=== PATIENT | male | born 1955 | race Caucasian/White ===

== ENCOUNTER 2020-05-27 06:42 | Inpatient (IN) | payer OTHER ==
[2020-05-27 07:27] LABS: #Basophils 0.1 thou/uL (0.0-0.2); #Eosinphils 0.2 thou/uL (0.0-0.7); #Lymphocytes 2.3 thou/uL (1.20-3.40); #Monocytes 1.1 thou/uL (0.11-0.59); #Neutrophils 8.2 thou/uL (1.40-6.50); %Basophils 0.8 % (0.0-1.0); %Eosinophils 1.5 % (0.0-10.0); %Lymphocytes 19.4 % (21.0-51.0); %Monocytes 9.5 % (0.0-10.0); %Neutrophils 68.9 % (42.0-75.0); Hemoglobin 14.1 g/dL (14.0-18.0); Mean Corpuscular HGB CONC 33.3 g/dL (32.0-36.0); Mean Corpuscular Hemoglobin 32.8 pg (27.0-31.0); Mean Corpuscular Volume 98.5 fL (78.0-98.0); Platelet Count 448 thou/uL (130-400); RBC Distribution Width 13.1 % (11.5-14.5); Red Blood Cell (RBC) Count 4.29 mill/uL (4.70-6.10)
[2020-05-27 07:36] LABS: INR-International Normal Ratio 0.9; PTT 29.2 sec (22.9-36.1); Prothrombin Time 12.7 sec (12.0-14.7)
--- NOTE | 2020-05-27 07:36 | RAD ---
Portable frontal chest radiograph: 05/27/2020 COMPARISON: None HISTORY: Chest pain FINDINGS: Lungs are clear. Heart and mediastinal contours appear within normal limits. There is degenerative change involving the acromioclavicular joints, left greater than right. IMPRESSION: No acute findings.
--- NOTE | 2020-05-27 07:47 | CT ---
Exam: Head CT without contrast HISTORY: Fall. Pain. Confusion. COMPARISON: none FINDINGS: Hemorrhage: No intraparenchymal hemorrhage or extra-axial hematoma. Brain parenchyma: Cortical jose-white matter differentiation is preserved. No mass effect or midline shift. Basilar cisterns are patent. Ventricular system: Ventricles and sulci are patent and symmetric. Calvarium: Calvarium is intact. Scalp: There is a midline and left-sided frontal scalp hematoma. Sinuses and mastoid air cells: Minimal right maxillary sinus mucosal disease. Partial opacification o f bilateral mastoid air cells. IMPRESSION: 1. No intracranial post traumatic sequelae 2. Left scalp hematoma.
--- NOTE | 2020-05-27 07:48 | CT ---
CT cervical spine noncontrast HISTORY: Fall. Neck injury. FINDINGS: Vertebral body heights are maintained. Disc space narrowing at each level. Alignment within normal limits. Cervicothoracic junction is intact. No acute fracture or dislocation. Prominent osteophytosis throughout the vertebral bodies and facets. Central canal stenoses most sever e at the C5-6 and C6-7 levels. Right foraminal stenoses most severe at the C3-4, C4-5, and C5-6 levels. Left foraminal stenoses most severe at the C5-6 and C6-7 levels. Partial opacification of the mastoid air cells. IMPRESSION : Prominent degenerative changes cervical spine. No acute osseous abnormalities are demonstrated.
[2020-05-27 07:50] LABS: Acetaminophen Less than 6.0 mcg/mL (10.0-30.0); Alcohol Less than 10 mg/dL (Less than 10); Salicylate Less than 8.0 mg/dL (15.0-30.0)
[2020-05-27 07:51] LABS: ALT (SGPT) 27 U/L (8-55); AST (SGOT) 32 U/L (5-34); Albumin 4.2 g/dL (3.4-4.8); Alkaline Phosphatase 74 U/L (40-110); Anion Gap 14 mmol/L (10-20); BUN (Urea Nitrogen) 14 mg/dL (8.4-25.7); Bilirubin, Total 0.7 mg/dL (0.2-1.2); CK (CPK) 1672 U/L (30-200); Calc. Creatinine Clearance 0 mL/min (70-130); Calcium 9.5 mg/dL (7.8-10.44); Carbon Dioxide 25 mmol/L (23-31); Chloride 107 mmol/L (98-107); Estimated GFR-MDRD Greater than 90; Globulin 3.1 g/dL (2.4-3.5); Glucose 120 mg/dL (80-115); Lipase 14 U/L (8-78); Potassium 4.2 mmol/L (3.5-5.1); Protein, Total 7.3 g/dL (5.8-8.1); Sodium 142 mmol/L (136-145)
[2020-05-27] MEDS ORDERED: Haloperidol Lactate 5 MG/ML VIAL ONE (08:41)
[2020-05-27 09:42] LABS: Bilirubin Negative (Negative); Blood, Urine Negative (Negative); Clarity Clear (Clear); Glucose, Urine (Dipstick) Normal (Negative); Ketone, Urine Negative (Negative); Leukocyte Negative Leu/uL (Negative); Nitrite Negative (Negative); Protein, Urine (Dipstick) Negative (Neg-Trace); Specific Gravity, Urine 1.015 (1.002-1.036); Urobilinogen Normal mg/dL (Less than 2); pH, Urine 5.5 (5.0-9.0)
[2020-05-27 10:13] LABS: Amphetamine Not Detected (NotDetected); Barbiturates Screen Not Detected (NotDetected); Benzodiazepine Screen Not Detected (NotDetected); Cocaine Metabolite Screen Not Detected (NotDetected); Medtox Control Line Valid? VALID (VALID); Medtox Reader # READER 4; Methadone Not Detected (NotDetected); Methamphetamine Not Detected (NotDetected); Opiate Screen Not Detected (NotDetected); Oxycodone Screen Not Detected (NotDetected); Phencyclidine (PCP) Not Detected (NotDetected); THC/Cannabinoid Screen Not Detected (NotDetected); Tricyclic Screen Not Detected (NotDetected)
--- NOTE | 2020-05-27 10:22 | PDOC.HHP ---
Hospitalist HPI - History of Present Illness Fall History of Present Illness: This is a 64-year-old male patient With a history of hypertension and diabetes mellitus he was brought in by EMS after he was noted to have fallen. He was found on the ground by EMS in his brother's house. Of note he is a poor historian. It is not clear how long it for him but estimated to about 24 hours. When EMS found him his blood pressure was 160/64, pulse 96 and oxygen 97 on room air. He was generally confused. He was found to have multiple abrasions to his lower extremities as well as a large hematoma on his left forehead. At my evaluation patient was still generally confused however could answer some questions. He was alert and oriented x3 however gave some errant answers intermittently. He notes having a falling at his brothers house but does not know how long he was on the ground. He has very vague memory of the last couple of days. He notes mild headache and weakness in his upper and lower limbs were mainly in his upper limbs. he denies any chest pain, palpitaion or shortness of breath. Prior to his fall he is unsure whether he stumbled mechanically, had dizziness or had any cardiac related events. He does not drink however smokes intermittently. also uses canabis once in a while. On arrival blood pressure was 145/96, respiration 18, temperature 98.4 saturation 99 on room air. His labs showed CK 1674, WBC was 12.0, platelet 448, BMP was essentially normal and glucose was 118. Acetaminophen and salicylates were within normal limits. CT scan of his head and neck revealed no acute or traumatic events. However he had prominent degenerative changes in the cervical spine. In the ED was given 2 L normal saline, ceftriaxone 2 g and Haldol. Neurosurgery was contacted for their input. Hospitalist team was consulted for admission. Hospitalist ROS - Review of Systems ROS unobtainable: due to mental status Constitutional: reports: fever. denies: chills, sweats Respiratory: denies: cough, shortness of breath, hemoptysis, SOB with excertion Gastrointestinal: denies: nausea, vomiting, abdominal pain, diarrhea Neurological: reports: weakness. denies: numbness Hospitalist History - Past Medical History Cardiac: reports: HTN Endocrine: reports: Diabetes Other Medical History: depression - Past Surgical History Other Surgical History: Right jojo surgery - Family History Other Family History: Alicia moya any for now - Social History Smoking Status: Current every day smoker Alcohol: reports: None Living Situation: With Family - Exam General - other findings: Apears confused, large bump on left forehead Eye: PERRL, anicteric sclera Neck: supple, no JVD Heart: RRR, no murmur, no gallops Respiratory: no wheezes, no rales, no ronchi, no tachypnea Gastrointestinal: soft, non-tender, non-distended, normal bowel sounds Neurological - other findings: Power 3/5 in upper limbs, 4/5 in upper limbs Psychiatric: A&O x 3 Psychiatric - other findings: Generally tangential. Hospitalist Results - Labs Result Diagrams: 05/27/20 07:20 05/27/20 07:21 Lab results: WBC 12.0 thou/uL (4.8-10.8) H 05/27/20 07:20 Hgb 14.1 g/dL (14.0-18.0) 05/27/20 07:20 Hct 42.3 % (42.0-52.0) 05/27/20 07:20 MCV 98.5 fL (78.0-98.0) H 05/27/20 07:20 Plt Count 448 thou/uL (130-400) H 05/27/20 07:20 Neutrophils % 68.9 % (42.0-75.0) 05/27/20 07:20 Sodium 142 mmol/L (136-145) 05/27/20 07:21 Potassium 4.2 mmol/L (3.5-5.1) 05/27/20 07:21 Chloride 107 mmol/L (98-107) 05/27/20 07:21 Carbon Dioxide 25 mmol/L (23-31) 05/27/20 07:21 BUN 14 mg/dL (8.4-25.7) 05/27/20 07:21 Creatinine 0.79 mg/dL (0.7-1.3) 05/27/20 07:21 Glucose 120 mg/dL (80-115) H 05/27/20 07:21 Lactic Acid 1.5 mmol/L (0.5-2.2) 05/27/20 07:20 Calcium 9.5 mg/dL (7.8-10.44) 05/27/20 07:21 Total Bilirubin 0.7 mg/dL (0.2-1.2) 05/27/20 07:21 AST 32 U/L (5-34) 05/27/20 07:21 ALT 27 U/L (8-55) 05/27/20 07:21 Alkaline Phosphatase 74 U/L (40-110) 05/27/20 07:21 Creatine Kinase 1672 U/L (30-200) H 05/27/20 07:21 Serum Total Protein 7.3 g/dL (5.8-8.1) 05/27/20 07:21 Albumin 4.2 g/dL (3.4-4.8) 05/27/20 07:21 Lipase 14 U/L (8-78) 05/27/20 07:21 Urine Ketones Negative mg/dL (Negative) 05/27/20 09:20 Urine Blood Negative (Negative) 05/27/20 09:20 Urine Nitrite Negative (Negative) 05/27/20 09:20 Ur Leukocyte Esterase Negative Zia/uL (Negative) 05/27/20 09:20 Hospitalist H&P A/P - Plan Plan: This is a 64-year-old male patient, poor historian brought in by EMS after he was found on the ground after a fall with unclear duration on the ground. He is generally confused however answers some questions coherently. He will be admitted for further work-up. Neurosurgery has been contacted on account of bilateral intermittent upper limb paresis Fall Unclear etiologymechanical, cardiac, syncope, stroke Admit for telemetry monitoring Brain MRI Fall precautions Neurochecks Orthostatic vital signs once stable to perform. PT OT Bilateral upper limb weakness unclear etiology Possible myelopathy from chronic cervical degeneration MRI brain ordered Neurosurgery consulted Possible sepsis Is confused if leukocytosis however no clear source of sepsis. Chest is clear, urine has no indication of infection Also less likely meningitis given no other symptoms of neck stiffness fevers Received ceftriaxone Will hold antibiotics for now and monitororder blood culture and restart if indicated. Scalp hematoma Secondary to fall and trauma No intracerebral lesion on CT scan We will monitor for spontaneous resolution Surgical evaluation if persistent Acute encephalopathy Unclear etiology No acute events on head CT This could be related to traumatic brain injury Urine drug screen negative for any intoxicants. Blood alcohol less than 10 We will check B12, TSH, ammonia, thiamine Monitor on the floor Hypertension Blood pressure stable for now Will monitor Diabetes History of diabetes We will check A1c Correctional [place] [address] We will trend Received 2 L IV fluids in ED We will continue IV fluids History of depression We will start fluoxetine VTE prophylaxisLovenox Codefull code Dietdiabetic diet Disposition: Neuro telemetry I tried unsuccessfully to talk to family Addendum: MRI Reviewed-showed small restricted diffusion in temporal lobe consistent with a stroke Neuro consult in am.
[2020-05-27] MEDS ORDERED: Dextrose 50% Abboject 50 ML SYRINGE SLOW IVP PRN (11:04)
[2020-05-27] MEDS ORDERED: Dextrose 5% in Water 1,000 ML IV PRN (11:04)
[2020-05-27] MEDS ORDERED: HumaLOG 300 UNITS/3 ML VIAL SC PRN (11:04)
[2020-05-27] MEDS ORDERED: hydrALAZINE 20 MG/ML VIAL SLOW IVP PRN (11:08)
[2020-05-27 11:10] LABS: Troponin I Less than 0.010 ng/mL (< 0.028)
[2020-05-27] MEDS: Sodium Chloride 0.9% 1,000 ML IV SCH (14:00)
[2020-05-27] MEDS ORDERED: Lorazepam 0.5 MG TAB PO PRN (14:08)
[2020-05-27] MEDS ORDERED: Lorazepam 2 MG/ML VIAL SLOW IVP PRN (14:11)
[2020-05-27] MEDS: Lorazepam 2 MG/ML VIAL SLOW IVP PRN ×2 (14:39→22:27)
--- NOTE | 2020-05-27 15:18 | MRI ---
Exam: Brain MRI without contrast HISTORY: Fall. Pain. Confusion. COMPARISON: None FINDINGS: Calvarial marrow signal intensity: Appropriate T1 signal Gradient echo sequence: No hemorrhage Brain parenchyma: No mass, mass effect or midline shift. Brain volume, age-appropriate. Cortical jose-white matter differentiation: Preserved Restricted diffusion: Possible small focus of restricted diffusion involving the left temporal lobe, subependymal location along the temporal horn of the left lateral ventricle. White matter signal intensities:Minimal scattered T2 and FLAIR white matter hyperintensities, nonspec ific. Sinuses: Partial opacification of bilateral mastoid air cells. Mild mucosal thickening of the ethmoid air cells. Additional findings: Left frontal scalp hematoma. IMPRESSION: Small focus of restricted diffusion involving the left temporal lobe. Restricted diffusion appears to be along the subependymal region of the temporal horn of the left lateral ventricle.
[2020-05-27 16:15] LABS: Hemoglobin A1c 5.8 % (4.0-6.0)
[2020-05-27 16:34] LABS: Troponin I Less than 0.010 ng/mL (< 0.028)
[2020-05-27 16:54] LABS: Thyroid Stimulating Hormone 1.5319 uIU/mL (0.35-4.94)
[2020-05-27] MEDS: Enoxaparin Sodium 40 MG/0.4 ML SYRINGE SC SCH (20:32)
[2020-05-27] MEDS ORDERED: Atorvastatin Calcium 40 MG TAB PO SCH (23:00)
[2020-05-27] MEDS ORDERED: Aspirin 81 mg Enteric Coated Tablet PO SCH (23:00)
[2020-05-28] MEDS ORDERED: Lorazepam 2 MG/ML VIAL SLOW IVP SCH (01:45)
[2020-05-28] MEDS: Sodium Chloride 0.9% 1,000 ML IV SCH ×3 (01:50→21:20)
[2020-05-28] MEDS: Acetaminophen 325 MG TAB PO PRN (03:57)
[2020-05-28 05:22] LABS: #Basophils 0.1 thou/uL (0.0-0.2); #Eosinphils 0.3 thou/uL (0.0-0.7); #Lymphocytes 3.2 thou/uL (1.20-3.40); #Monocytes 0.9 thou/uL (0.11-0.59); #Neutrophils 6.2 thou/uL (1.40-6.50); %Basophils 1.1 % (0.0-1.0); %Eosinophils 2.9 % (0.0-10.0); %Monocytes 8.3 % (0.0-10.0); %Neutrophils 57.8 % (42.0-75.0); Hemoglobin 12.6 g/dL (14.0-18.0); Mean Corpuscular HGB CONC 34.5 g/dL (32.0-36.0); Mean Corpuscular Hemoglobin 33.2 pg (27.0-31.0); Mean Corpuscular Volume 96.2 fL (78.0-98.0); Mean Platelet Volume 6.2 fL (7.4-10.4); Platelet Count 434 thou/uL (130-400); Red Blood Cell (RBC) Count 3.81 mill/uL (4.70-6.10); White Blood Cell (WBC) Count 10.6 thou/uL (4.8-10.8)
[2020-05-28 05:43] LABS: Anion Gap 11 mmol/L (10-20); BUN (Urea Nitrogen) 14 mg/dL (8.4-25.7); CK (CPK) 955 U/L (30-200); Calc. Creatinine Clearance 141 mL/min (70-130); Calcium 8.5 mg/dL (7.8-10.44); Carbon Dioxide 23 mmol/L (23-31); Cardiac Risk 3.4 (Less than 4.5); Chloride 109 mmol/L (98-107); Cholesterol 117 mg/dl (< 200 Desired); Estimated GFR-MDRD Greater than 90; Glucose 116 mg/dL (80-115); HDL Cholesterol 34 mg/dL (>60 Neg Risk); LDL Cholesterol, Calculated 57 mg/dL; Potassium 3.7 mmol/L (3.5-5.1); Sodium 139 mmol/L (136-145); Triglycerides 128 mg/dL (Less than 150)
[2020-05-28] MEDS: Labetalol HCl 100 MG/20 ML VIAL SLOW IVP PRN (09:21)
[2020-05-28] MEDS: Aspirin 81 mg Enteric Coated Tablet PO SCH (09:23)
[2020-05-28] MEDS: FLUoxetine HCl 20 MG CAP PO SCH (09:23)
[2020-05-28] MEDS ORDERED: Lorazepam 1 MG TAB PO PRN (09:25)
[2020-05-28 12:49] LABS: SARS-CoV-2 MS2 Positive; SARS-CoV-2 N Gene Negative; SARS-CoV-2 S Gene Negative; SARS-CoV-2 by NAA Not Detected (NotDetected); SARS-CoV-2 orf1ab Negative
[2020-05-28] MEDS ORDERED: Iopamidol-370 76% 500 ML 1 ML ONE (14:45)
--- NOTE | 2020-05-28 17:00 | ULT ---
Carotid duplex sonogram HISTORY: CVA. Vascular disease. FINDINGS: Exam very limited due to patient motion and inability to cooperate. Right: Color and spectral Doppler flow within the visualized portions of the internal carotid artery shows peak systolic velocity of 90 cm/s. Vertebral artery not visualized. Left: Color and spectral Doppler flow in the common carotid artery with peak systolic velocity 146 cm /s. Waveform suggests increased resistance.. Internal carotid artery and vertebral artery not visualized. IMPRESSION : Very limited exam. While the left internal carotid artery is not visualized, findings of the left com mon carotid artery would be supportive of an internal carotid artery stenosis. Conventional or CT arteriography, if possible, could better delineate.
--- NOTE | 2020-05-28 17:47 | PDOC.HOSPP ---
- Subjective Encounter Date: 05/28/20 Encounter Time: 09:00 Subjective: F/u: stroke The patient was confused this morning. He states that he fell but does not remember how it happened. He states he has a mild headache. No numbness in his arms or legs. He appears to talk in sentences that don't make sense at times Patient was unable to complete carotid doppler or MRI cervical spine because he was talking too much. He will be given higher dose of ativan for this - Objective Vital Signs & Weight: Vital Signs (12 hours) Temp Pulse Pulse Pulse Resp BP BP 05/28/20 15:36 98.0 F 94 18 05/28/20 13:14 88 88 141/71 H 05/28/20 12:37 88 05/28/20 11:55 98.2 F 84 16 05/28/20 11:11 88 82 189/95 H 05/28/20 10:00 85 05/28/20 09:21 99 190/95 H 05/28/20 08:17 05/28/20 08:00 98.2 F 99 18 BP BP Pulse Ox 05/28/20 15:36 146/98 H 98 05/28/20 13:14 141/91 H 05/28/20 12:37 141/91 H 05/28/20 11:55 189/95 H 97 05/28/20 11:11 173/83 H 05/28/20 10:00 162/100 H 05/28/20 09:21 05/28/20 08:17 99 05/28/20 08:00 190/95 H 100 Weight Admit Weight 203 lb 6.4 oz Weight 203 lb 6.4 oz I&O: 05/27/20 05/28/20 05/29/20 06:59 06:59 06:59 Intake Total 2740 Output Total 3145 Balance -405 Result Diagrams: 05/28/20 04:46 05/28/20 04:46 Additional Labs: Accuchecks 05/27/20 20:42 POC Glucose 104 H Hospitalist ROS - Review of Systems Constitutional: denies: fever, chills - Medication Medications: Active Medications Generic Name Dose Route Start Last Admin Trade Name Freq PRN Reason Stop Dose Admin Acetaminophen 650 mg 05/27/20 11:04 05/28/20 03:57 Acetaminophen 325 Mg Tab PO 650 mg Q4H PRN Administration Headache/Fever/Mild Pain (1-3) Aspirin 81 mg 05/28/20 09:00 05/28/20 09:23 Aspirin 81 Mg Enteric Coated Tablet PO 81 mg DAILY VENKATESH Administration Enoxaparin Sodium 40 mg 05/27/20 21:00 05/27/20 20:32 Enoxaparin Sodium 40 Mg/0.4 Ml Syringe SC 40 mg HS VENKATESH Administration Fluoxetine HCl 20 mg 05/28/20 09:00 05/28/20 09:23 Fluoxetine Hcl 20 Mg Cap PO 20 mg DAILY VENKATESH Administration Sodium Chloride 1,000 mls @ 100 mls/hr 05/27/20 11:30 05/28/20 12:33 Normal Saline 0.9% IV 1,000 mls .Q10H VENKATESH Administration Labetalol HCl 20 mg 05/28/20 01:37 05/28/20 09:21 Labetalol Hcl 100 Mg/20 Ml Vial SLOW IVP 20 mg Q4H PRN Administration SBP > 180 and HR >/= 70 Sodium Chloride 10 ml 05/27/20 21:00 05/28/20 09:22 Flush - Normal Saline 10 Ml Syringe IVF 10 ml Q12HR VENKATESH Administration - Exam General Appearance: NAD, awake alert Eye: PERRL, anicteric sclera ENT: normocephalic atraumatic, no oropharyngeal lesions Neck: no JVD Heart: RRR, no murmur, no gallops, no rubs Respiratory: CTAB, no wheezes, no rales, no ronchi, normal chest expansion, no tachypnea, normal percussion Gastrointestinal: soft, non-tender, non-distended, normal bowel sounds Extremities: no cyanosis, no clubbing, no edema Skin: normal turgor, no lesions, no rashes Neurological: cranial nerve grossly intact, normal sensation to touch, no weakness, speech deficit (he has good speech but sentences don't make sense) Neurological - other findings: right arm flaccid. 5/5 strength lower extremities, 5/5 LUe but poor effort Musculoskeletal: normal tone, normal strength, no muscle wasting Psychiatric: oriented to place Hosp A/P - Plan Carotid doppler: Limited exam, but possible left internal carotid artery stenosis CT brain: left scalp hematoma CT cervical spine: prominent degenerative changes Chest X ray: no acute findings MRI brain: small focus of restricted diffusion involving left temporal lobe This is a 64 year old male who presented to the ER after a fall , found to have a stroke Acute encephalopaty secondary to left temporal lobe stroke - patient has right arm weakness. CT brain negative, MRI shows left temporal lobe stroke - carotid dopplers show possible left ICA stenosis, but difficult to visualize. Will obtain CTA head and neck - continue aspirin and statin - ECHO done and pending -PT/OT/speech consult, patient will likely need rehab S/p fall - CT cervical spine shows degenerative changes - PT evaluation Anemia - Hb 12.6 today, will trend and recheck tomorrow Leukocytosis- resolved DVT prophylaxis: lovenox Code status: full code
[2020-05-28] MEDS: Lorazepam 1 MG TAB PO PRN (18:12)
--- NOTE | 2020-05-28 20:38 | CT ---
CT ANGIO OF NECK PERFORMED WITH INTRAVENOUS CONTRAST ENHANCEMENT WITH 3D [address]STRUCTIONS AND CT OF BR AIN PERFORMED WITHOUT CONTRAST AND CT ANGIO OF BRAIN PERFORMED WITH CONTRAST ENHANCEMENT WITH 3D DHAVAL NSTRUCTIONS: 05/28/20 HISTORY: Altered mental status. Right arm weakness. Focus of restricted diffusion seen in left temporal lobe o n MRI exam. The noncontrast CT of the head shows a large left scalp hematoma. No evidence of any intracranial hem orrhage. The lung apices are clear of any focal infiltrative process. Thyroid gland is normal in appearance. V ocal cord region is unremarkable. Parapharyngeal spaces are clear. The vertebral arteries are codominant. There appears to be a separate origin of the left common carot id artery from the aortic arch. On the right side, the right common carotid, internal and external carotid arteries are patent witho ut significant narrowing. The origin of the left internal carotid artery is somewhat tortuous. Distal ly, there is some motion artifact which makes assessment more difficult. On the left side, the left common internal and external carotid arteries show no significant stenosis . CT ANGIO OF HEAD PERFORMED WITH INTRAVENOUS CONTRAST ENHANCEMENT WITH 3D RECONSTRUCTIONS: Vertebral arteries are codominant making equal contribution to the basilar artery. Posterior cerebral arteries appear unremarkable. Anterior and middle cerebral arteries and their branches appear symmetric. IMPRESSION: 1. No evidence of hemodynamically significant stenosis at either internal carotid artery by NASC ET criteria. 2. No intracranial findings. POS: EVELYNE
[2020-05-28] MEDS: Atorvastatin Calcium 40 MG TAB PO SCH (21:58)
[2020-05-28] MEDS: Enoxaparin Sodium 40 MG/0.4 ML SYRINGE SC SCH (23:38)
[2020-05-29] MEDS: Sodium Chloride 0.9% 1,000 ML IV SCH ×2 (03:16→15:23)
[2020-05-29] MEDS: Labetalol HCl 100 MG/20 ML VIAL SLOW IVP PRN (03:39)
[2020-05-29] MEDS: Acetaminophen 325 MG TAB PO PRN ×3 (03:50→21:13)
[2020-05-29 05:44] LABS: Thyroid Stimulating Hormone 1.5377 uIU/mL (0.35-4.94)
--- NOTE | 2020-05-29 08:56 | CON ---
NEUROLOGY CONSULTATION DATE OF CONSULTATION: 05/28/2020 REASON FOR CONSULTATION: Stroke. HISTORY OF PRESENT ILLNESS: Mr. Trinh is a 64-year-old male with medical history significant for hypertension and diabetes, brought to the hospital by the EMS because he was found down in his brother's house. When the EMS was called, his blood pressure was 160/64, pulse was 96, and he was extremely confused, has multiple abrasions in his lower extremities as well as a large hematoma on his head. Since then, the patient has been confused and his conversation does not make sense. History is limited because of the patient's mental status and is obtained from review of the medical records and by talking with brother at the bedside. Per brother, he denies any focal weakness, nausea, vomiting, headache, chest pain, abdominal pain. He smokes intermittently and he also uses cannabis, but he does not drink. REVIEW OF SYSTEMS: Unobtainable due to the patient's mental status. PAST MEDICAL HISTORY: Hypertension, diabetes. PAST SURGICAL HISTORY: Right hip surgery. FAMILY HISTORY: No significant family history per brother. SOCIAL HISTORY: He is a current everyday smoker. He lives with family. Per brother, he is normal and he has never been confused ALLERGIES: Cilantro Vital Signs & Weight: Vital Signs (12 hours) Temp Pulse Pulse Pulse Resp BP BP 05/28/20 15:36 98.0 F 94 18 05/28/20 13:14 88 88 141/71 H 05/28/20 12:37 88 05/28/20 11:55 98.2 F 84 16 05/28/20 11:11 88 82 189/95 H 05/28/20 10:00 85 05/28/20 09:21 99 190/95 H 05/28/20 08:17 05/28/20 08:00 98.2 F 99 18 BP BP Pulse Ox 05/28/20 15:36 146/98 H 98 05/28/20 13:14 141/91 H 05/28/20 12:37 141/91 H 05/28/20 11:55 189/95 H 97 05/28/20 11:11 173/83 H 05/28/20 10:00 162/100 H 05/28/20 09:21 05/28/20 08:17 99 05/28/20 08:00 190/95 H 100 Weight Admit Weight 203 lb 6.4 oz Weight 203 lb 6.4 oz I&O: 05/27/20 05/28/20 05/29/20 06:59 06:59 06:59 Intake Total 2740 Output Total 3145 Balance -405 Additional Labs: Accuchecks 05/27/20 20:42 POC Glucose 104 H Active Medications Generic Name Dose Route Start Last Admin Trade Name Freq PRN Reason Stop Dose Admin Acetaminophen 650 mg 05/27/20 11:04 05/28/20 03:57 Acetaminophen 325 Mg Tab PO 650 mg Q4H PRN Administration Headache/Fever/Mild Pain (1-3) Aspirin 81 mg 05/28/20 09:00 05/28/20 09:23 Aspirin 81 Mg Enteric Coated Tablet PO 81 mg DAILY VENKATESH Administration Enoxaparin Sodium 40 mg 05/27/20 21:00 05/27/20 20:32 Enoxaparin Sodium 40 Mg/0.4 Ml Syringe SC 40 mg HS VENKATESH Administration Fluoxetine HCl 20 mg 05/28/20 09:00 05/28/20 09:23 Fluoxetine Hcl 20 Mg Cap PO 20 mg DAILY VENKATESH Administration Sodium Chloride 1,000 mls @ 100 mls/hr 05/27/20 11:30 05/28/20 12:33 Normal Saline 0.9% IV 1,000 mls .Q10H VENKATESH Administration Labetalol HCl 20 mg 05/28/20 01:37 05/28/20 09:21 Labetalol Hcl 100 Mg/20 Ml Vial SLOW IVP 20 mg Q4H PRN Administration SBP > 180 and HR >/= 70 Sodium Chloride 10 ml 05/27/20 21:00 05/28/20 09:22 Flush - Normal Saline 10 Ml Syringe IVF 10 ml Q12HR VENKATESH Administration PHYSICAL EXAMINATION: General Appearance: NAD, awake alert Eye: PERRL, anicteric sclera ENT: normocephalic atraumatic, no oropharyngeal lesions Neck: no JVD Heart: RRR, no murmur, no gallops, no rubs Respiratory: CTAB, no wheezes, no rales, no ronchi, normal chest expansion, no tachypnea, normal percussion Gastrointestinal: soft, non-tender, non-distended, normal bowel sounds Extremities: no cyanosis, no clubbing, no edema Skin: normal turgor, no lesions, no rashes Neurological: Mental status; the patient is alert and oriented to person and place, but not to time. He is extremely tangential. Motor; muscle tone and bulk are normal. He is moving all 4 extremities equally and symmetrically. Sensory; withdraws to nailbed pressure bilaterally. Cerebellar; did not cooperate with the exam. Gait deferred due to the patient's safety reasons. DIAGNOSTIC STUDIES: Data reviewed. I reviewed the labs, which were significant for hyperglycemia with a glucose of 448. EEG reviewed and was negative for seizure activity. Lab results: WBC 12.0 thou/uL (4.8-10.8) H 05/27/20 07:20 Hgb 14.1 g/dL (14.0-18.0) 05/27/20 07:20 Hct 42.3 % (42.0-52.0) 05/27/20 07:20 MCV 98.5 fL (78.0-98.0) H 05/27/20 07:20 Plt Count 448 thou/uL (130-400) H 05/27/20 07:20 Neutrophils % 68.9 % (42.0-75.0) 05/27/20 07:20 Sodium 142 mmol/L (136-145) 05/27/20 07:21 Potassium 4.2 mmol/L (3.5-5.1) 05/27/20 07:21 Chloride 107 mmol/L (98-107) 05/27/20 07:21 Carbon Dioxide 25 mmol/L (23-31) 05/27/20 07:21 BUN 14 mg/dL (8.4-25.7) 05/27/20 07:21 Creatinine 0.79 mg/dL (0.7-1.3) 05/27/20 07:21 Glucose 120 mg/dL (80-115) H 05/27/20 07:21 Lactic Acid 1.5 mmol/L (0.5-2.2) 05/27/20 07:20 Calcium 9.5 mg/dL (7.8-10.44) 05/27/20 07:21 Total Bilirubin 0.7 mg/dL (0.2-1.2) 05/27/20 07:21 AST 32 U/L (5-34) 05/27/20 07:21 ALT 27 U/L (8-55) 05/27/20 07:21 Alkaline Phosphatase 74 U/L (40-110) 05/27/20 07:21 Creatine Kinase 1672 U/L (30-200) H 05/27/20 07:21 Serum Total Protein 7.3 g/dL (5.8-8.1) 05/27/20 07:21 Albumin 4.2 g/dL (3.4-4.8) 05/27/20 07:21 Lipase 14 U/L (8-78) 05/27/20 07:21 Urine Ketones Negative mg/dL (Negative) 05/27/20 09:20 Urine Blood Negative (Negative) 05/27/20 09:20 Urine Nitrite Negative (Negative) 05/27/20 09:20 Ur Leukocyte Esterase Negative Zia/uL (Negative) 05/27/20 09:20 ASSESSMENT AND PLAN: 1. Acute encephalopaty secondary to left temporal lobe stroke 2. S/p fall Mr. King Dee is a 64-year-old male, who was consulted for altered mental status. Medical history is significant for hypertension and diabetes. MRI of the brain reviewed, which showed small restricted diffusion in temporal lobe consistent with stroke. Start aspirin and high- intensity statin for secondary stroke prevention. Check hemoglobin A1c, fasting lipid panel, and TSH. Start telemetry. 2D echo and carotid Dopplers. Neuro checks every 4 hours. EEG negative but consider starting Keppra 500 mg bid for seizure prophylaxis since increased precious of seizures due to temporal lobe infarct. Continue home medications. PT/OT/speech. We will continue to follow. Thank you for the consult. 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 Job ID: [id number] [facility]
[2020-05-29] MEDS: Folic Acid 1 MG TAB PO SCH (09:39)
[2020-05-29] MEDS: Cyanocobalamin (Vitamin B-12) 1,000 MCG TAB PO SCH (09:39)
[2020-05-29] MEDS: FLUoxetine HCl 20 MG CAP PO SCH (09:40)
[2020-05-29] MEDS: Aspirin 81 mg Enteric Coated Tablet PO SCH (09:40)
--- NOTE | 2020-05-29 12:36 | PDOC.NEUPN ---
- Subjective Encounter Date: 05/29/20 Subjective: Patient mental status improved and is able to tell his name and place. However there is acute change with new onset weakness in both upper and lower extremities. MRI cervical spine spine ordered to further evaluate the new onset weakness - Objective Vital Signs & Weight: Vital Signs (12 hours) Temp Pulse Resp BP BP Pulse Ox 05/29/20 11:57 98.1 F 85 16 161/84 H 95 05/29/20 08:00 99.2 F 85 14 160/83 H 95 05/29/20 06:31 98.9 F 05/29/20 04:09 83 156/83 H 05/29/20 03:39 84 189/93 H 05/29/20 03:22 99.7 F H 84 17 189/93 H 96 Weight Admit Weight 203 lb 6.4 oz Weight 203 lb 6.4 oz I&O: 05/28/20 05/29/20 05/30/20 06:59 06:59 06:59 Intake Total 2740 1440 900 Output Total [address] [facility] -405 -35 -150 Result Diagrams: 05/28/20 04:46 05/28/20 04:46 Radiology Reviewed by me: Yes EKG Reviewed by me: Yes ROS - Review of Systems Constitutional: denies: fever, chills, sweats, weakness, malaise, other Eyes: denies: pain, vision change, conjunctivae inflammation, eyelid inflammation, redness, other Respiratory: denies: cough, dry, shortness of breath, hemoptysis, SOB with excertion, pleuritic pain, sputum, wheezing, other Gastrointestinal: denies: nausea, vomiting, abdominal pain, diarrhea, constipation, melena, hematochezia, other Genitourinary: denies: dysuria, frequency, incontinence, hematuria, retention, other Musculoskeletal: denies: neck pain, shoulder pain, arm pain, back pain, hand pain, leg pain, foot pain, other Skin: denies: rash, lesions, josé miguel, bruising, other Neurological: reports: weakness, numbness, incoordination - Medication Medications: Active Medications Generic Name Dose Route Start Last Admin Trade Name Freq PRN Reason Stop Dose Admin Acetaminophen 650 mg 05/27/20 11:04 05/29/20 09:44 Acetaminophen 325 Mg Tab PO 650 mg Q4H PRN Administration Headache/Fever/Mild Pain (1-3) Aspirin 81 mg 05/28/20 09:00 05/29/20 09:40 Aspirin 81 Mg Enteric Coated Tablet PO 81 mg DAILY VENKATESH Administration Atorvastatin Calcium 40 mg 05/28/20 21:00 05/28/20 21:58 Atorvastatin Calcium 40 Mg Tab PO Not Given HS VENKATESH Cyanocobalamin 1,000 mcg 05/29/20 09:00 05/29/20 09:39 Cyanocobalamin (Vitamin B-12) 1,000 Mcg Tab PO 1,000 mcg DAILY VENKATESH Administration Enoxaparin Sodium 40 mg 05/27/20 21:00 05/28/20 23:38 Enoxaparin Sodium 40 Mg/0.4 Ml Syringe SC 40 mg HS VENKATESH Administration Fluoxetine HCl 20 mg 05/28/20 09:00 05/29/20 09:40 Fluoxetine Hcl 20 Mg Cap PO 20 mg DAILY VENKATESH Administration Folic Acid 1 mg 05/29/20 09:00 05/29/20 09:39 Folic Acid 1 Mg Tab PO 1 mg DAILY VENKATESH Administration Sodium Chloride 1,000 mls @ 100 mls/hr 05/27/20 11:30 05/29/20 03:16 Normal Saline 0.9% IV 1,000 mls .Q10H VENKATESH Administration Labetalol HCl 20 mg 05/28/20 01:37 05/29/20 03:39 Labetalol Hcl 100 Mg/20 Ml Vial SLOW IVP 20 mg Q4H PRN Administration SBP > 180 and HR >/= 70 Lorazepam 2 mg 05/28/20 16:27 05/28/20 18:12 Lorazepam 1 Mg Tab PO 2 mg Q4H PRN Administration Anxiety/Agitation Sodium Chloride 10 ml 05/27/20 21:00 05/29/20 09:42 Flush - Normal Saline 10 Ml Syringe IVF Not Given Q12HR VENKATESH - Exam General Appearance: awake alert Eye: PERRL ENT: normocephalic atraumatic Neck: supple Respiratory: CTAB Cardiovascular: RRR Gastrointestinal: soft Extremities: no cyanosis Skin: normal turgor Neurological - other findings: New onset weakness of both upper and lower extremities. 2 / 5 bilaterally Musculoskeletal: normal tone, no muscle wasting PSYCH: normal affect, normal behavior, oriented to person, oriented to place Results - Labs Result Diagrams: 05/28/20 04:46 05/28/20 04:46 Lab results: WBC 10.6 thou/uL (4.8-10.8) 05/28/20 04:46 Hgb 12.6 g/dL (14.0-18.0) L 05/28/20 04:46 Hct 36.6 % (42.0-52.0) L 05/28/20 04:46 MCV 96.2 fL (78.0-98.0) 05/28/20 04:46 Plt Count 434 thou/uL (130-400) H 05/28/20 04:46 Neutrophils % 57.8 % (42.0-75.0) 05/28/20 04:46 Sodium 139 mmol/L (136-145) 05/28/20 04:46 Potassium 3.7 mmol/L (3.5-5.1) 05/28/20 04:46 Chloride 109 mmol/L (98-107) H 05/28/20 04:46 Carbon Dioxide 23 mmol/L (23-31) 05/28/20 04:46 BUN 14 mg/dL (8.4-25.7) 05/28/20 04:46 Creatinine 0.70 mg/dL (0.7-1.3) 05/28/20 04:46 Glucose 116 mg/dL (80-115) H 05/28/20 04:46 Lactic Acid 1.5 mmol/L (0.5-2.2) 05/27/20 07:20 Calcium 8.5 mg/dL (7.8-10.44) 05/28/20 04:46 Total Bilirubin 0.7 mg/dL (0.2-1.2) 05/27/20 07:21 AST 32 U/L (5-34) 05/27/20 07:21 ALT 27 U/L (8-55) 05/27/20 07:21 Alkaline Phosphatase 74 U/L (40-110) 05/27/20 07:21 Ammonia 36 umol/L (18-72) 05/27/20 15:59 Creatine Kinase 955 U/L (30-200) H 05/28/20 04:46 Troponin I Less than 0.010 ng/mL (< 0.028) 05/27/20 15:58 Serum Total Protein 7.3 g/dL (5.8-8.1) 05/27/20 07:21 Albumin 4.2 g/dL (3.4-4.8) 05/27/20 07:21 Lipase 14 U/L (8-78) 05/27/20 07:21 Urine Ketones Negative mg/dL (Negative) 05/27/20 09:20 Urine Blood Negative (Negative) 05/27/20 09:20 Urine Nitrite Negative (Negative) 05/27/20 09:20 Ur Leukocyte Esterase Negative Zia/uL (Negative) 05/27/20 09:20 - Radiology Interpretation MRI - head Status: image reviewed by me, report reviewed by me Additional Comment: MRI brain reviewed and was consistent with a infarction in the left temporal lobe PN A/P (1) Acute CVA (cerebrovascular accident) Code(s): I63.9 - CEREBRAL INFARCTION, UNSPECIFIED Status: Acute (2) Bilateral arm weakness Code(s): R29.898 - OTH SYMPTOMS AND SIGNS INVOLVING THE MUSCULOSKELETAL SYSTEM Status: Acute (3) Bilateral leg weakness Code(s): R29.898 - OT SYMPTOMS AND SIGNS INVOLVING THE MUSCULOSKELETAL SYSTEM Status: Acute (4) Diabetes Code(s): E11.9 - TYPE 2 DIABETES MELLITUS WITHOUT COMPLICATIONS Status: Acute (5) Hypertension Code(s): I10 - ESSENTIAL (PRIMARY) HYPERTENSION Status: Acute - Plan Daily Plan: PT/OT, speech therapy, DVT proph w/SCDs 4-year-old male who presented with acute onset confusion status post fall. No focal deficits were evident on yesterday's exam. MRI brain consistent with acute infarction in the left temporal region. However, the patient developed weakness of both upper and lower extremity in the last 24 hours. Per nursing staff, waxing and waning mental status. MRI of the cervical spine ordered to evaluate the cervical spine. Cervical spine MRI results reviewed. Abnormal results noted. Consider neurosurgery input regarding new findings on imaging and new onset bilateral weakness of the upper and lower extremities. Initial cervical spine CT showed prominent degenerative disease but no acute findings. Bed rest MRI of the brain reviewed and was positive for infarction in the left temporal region. EEG reviewed and was negative for seizure activity. Consider starting Keppra 500 mg twice daily since patient is increased risk of seizures because of infarction in the left temporal region and waxing and waning mental status per nursing report. Carotid Dopplers completed. Limited study with concern of carotid stenosis. Follow-up CT angiogram of head and neck negative for hemodynamically significant stenosis. Neurochecks every 2 hours. Continue home medications. Permissive control of blood pressure at this time. Strict control of blood glucose. DVT prophylaxis. NPO till cleared by speech. Continue medical management per primary team. Plan discussed during MDR rounds and new findings discussed with the nursing staff.
--- NOTE | 2020-05-29 12:55 | MRI ---
MRI cervical spine noncontrast: 05/29/2020 HISTORY: 64-year-old male status post neck injury from fall COMPARISON: None FINDINGS: All images are degraded by patient motion, especially all of the axial images. This makes it difficult to evaluate for intramedullary signal abnormality. No obvious, gross severe i ntramedullary signal abnormality is visualized, but it is difficult to completely rule out at least mild cord edema. There is no syrinx. There is midline fluid in the retropharyngeal space (T2 and STIR hyperintense, and T1 hypointense) fr om C1 through at least C7-T1, and extending into the upper thoracic levels down to at least T3-4, the lowest level imaged on sagittal sequences. On the CT, the density is 65 Hounsfield units, and the refore this is probably blood. On the T2 WI and STIR sequence, vertically oriented linear thin hypodense structures are visualized within this retropharyngeal space fluid collection, which could r epresent torn portions of the anterior longitudinal ligament. Vertebral body heights are maintained. There is high-grade degenerative disc disease, with high-grade disc space narrowing, endplate irregularity, and broad-based and focal disc-osteophyte complexes that protrude into the anterior aspect of the spinal canal, at all levels from C3-4 through C6-C7, ex acerbating a developmentally small caliber spinal canal (due to short pedicles), resulting in severe central spinal canal stenosis throughout those levels, indenting the spinal cord. This is true to a lesser degree at C2-3. CSF signal is effaced throughout those levels. There are also large uncinate process osteophytes throughout all those levels, causing severe neural foraminal stenosis. M ultilevel predominantly low grade facet DJD throughout all levels. Bone marrow edema at endplates of C6-7 probably representing Modic type I changes. Mild soft tissue edema in the bilateral posterior paraspinal musculature throughout all levels of cer vical spine, and in the space between the C4 and C5 spinous processes. IMPRESSION: 1.) Fluid, consistent with hematoma, throughout the retropharyngeal space of the entire cervical spin e and upper thoracic spine levels. In the setting of trauma, this is suspicious for tear of the anterior longitudinal ligament. 2) developmentally small caliber spinal canal exacerbated by moderate cervical spondylosis with multi level high-grade degenerative disc disease, severe central spinal canal stenosis, severe bilateral neural foraminal stenosis, and chronic cord impingement and immobilization, at all levels from C3-4 t hrough C6-7, and to a lesser degree at C2-3. In such cases, even minor trauma can result in myelopathy. 3) because of significant patient motion, it is difficult to evaluate for intramedullary cord signal abnormality. 4) posterior perivertebral space edema suggestive of at least strain injury of the interspinous ligam ent and posterior paraspinal musculature.
--- NOTE | 2020-05-29 13:51 | EEG ---
DATE OF SERVICE: 05/28/2020 ATTENDING PHYSICIAN: Marissa Dukes MD This EEG was performed using 24-channel H2scantek video digital EEG machine with 24- disk electrodes. This was an extended 2 hours 6 minutes of inpatient video EEG recording. Digital analysis of the EEG was done for spike and seizure detection, which revealed no abnormalities. BACKGROUND: Posterior background rhythm was not observed. HYPERVENTILATION: Not performed. PHOTIC STIMULATION: Not performed. SLEEP: No stage change was observed. EEG DIAGNOSES: 1. Generalized irregular theta activity seen throughout the recording 2. Absence of posterior background rhythm. CLINICAL INTERPRETATION: This EEG is consistent with moderate generalized nonspecific cerebral dysfunction. Job ID: [id number] [facility]
[2020-05-29 15:33] LABS: Hemoglobin 12.6 g/dL (14.0-18.0); Mean Corpuscular HGB CONC 34.3 g/dL (32.0-36.0); Mean Corpuscular Hemoglobin 33.3 pg (27.0-31.0); Platelet Count 465 thou/uL (130-400); RBC Distribution Width 12.8 % (11.5-14.5); White Blood Cell (WBC) Count 9.7 thou/uL (4.8-10.8)
--- NOTE | 2020-05-29 19:35 | PDOC.HOSPP ---
- Subjective Encounter Date: 05/29/20 Encounter Time: 09:00 Subjective: I examined the patient this morning and he was obtunded and difficult to arouse to sternal rub. He was able to lift up legs slightly but not really his arms. Later this afternoon I re-evaluated the patient and he was alert and oriented times three MRI cervical spine showed hematoma in retropharyngeal space. Per Dr. Menjivar, this is not neurosurgical and no intervention needed for this currently . Per nursing staff, he did not get any sedatives for his MRI and mental status waxes and wanes frequently - Objective Vital Signs & Weight: Vital Signs (12 hours) Temp Pulse Resp BP Pulse Ox 05/29/20 15:45 97.9 F 109 H 18 169/94 H 94 L 05/29/20 11:57 98.1 F 85 16 161/84 H 95 05/29/20 08:00 99.2 F 85 14 160/83 H 95 Weight Admit Weight 203 lb 6.4 oz Weight 203 lb 6.4 oz I&O: 05/28/20 05/29/20 05/30/20 06:59 06:59 06:59 Intake Total 2740 1440 2720 Output Total 3145 1475 2375 Balance -405 -35 345 Result Diagrams: 05/29/20 15:08 05/28/20 04:46 Hospitalist ROS - Review of Systems Constitutional: denies: fever, chills - Medication Medications: Active Medications Generic Name Dose Route Start Last Admin Trade Name Freq PRN Reason Stop Dose Admin Acetaminophen 650 mg 05/27/20 11:04 05/29/20 09:44 Acetaminophen 325 Mg Tab PO 650 mg Q4H PRN Administration Headache/Fever/Mild Pain (1-3) Aspirin 81 mg 05/28/20 09:00 05/29/20 09:40 Aspirin 81 Mg Enteric Coated Tablet PO 81 mg DAILY VENKATESH Administration Atorvastatin Calcium 40 mg 05/28/20 21:00 05/28/20 21:58 Atorvastatin Calcium 40 Mg Tab PO Not Given HS VENKATESH Cyanocobalamin 1,000 mcg 05/29/20 09:00 05/29/20 09:39 Cyanocobalamin (Vitamin B-12) 1,000 Mcg Tab PO 1,000 mcg DAILY VENKATESH Administration Enoxaparin Sodium 40 mg 05/27/20 21:00 10/15/20 23:38 Enoxaparin Sodium 40 Mg/0.4 Ml Syringe SC 40 mg HS VENKATESH Administration Fluoxetine HCl 20 mg 05/28/20 09:00 05/29/20 09:40 Fluoxetine Hcl 20 Mg Cap PO 20 mg DAILY VENKATESH Administration Folic Acid 1 mg 05/29/20 09:00 05/29/20 09:39 Folic Acid 1 Mg Tab PO 1 mg DAILY VENKATESH Administration Sodium Chloride 1,000 mls @ 100 mls/hr 05/27/20 11:30 05/29/20 15:23 Normal Saline 0.9% IV 1,000 mls .Q10H VENKATESH Administration Labetalol HCl 20 mg 05/28/20 01:37 05/29/20 03:39 Labetalol Hcl 100 Mg/20 Ml Vial SLOW IVP 20 mg Q4H PRN Administration SBP > 180 and HR >/= 70 Lorazepam 2 mg 05/28/20 16:27 05/28/20 18:12 Lorazepam 1 Mg Tab PO 2 mg Q4H PRN Administration Anxiety/Agitation Sodium Chloride 10 ml 05/27/20 21:00 05/29/20 09:42 Flush - Normal Saline 10 Ml Syringe IVF Not Given Q12HR VENKATESH - Exam General Appearance: NAD, awake alert Eye: PERRL, anicteric sclera ENT: normocephalic atraumatic, no oropharyngeal lesions Neck: no JVD Heart: RRR, no murmur, no gallops, no rubs Respiratory: CTAB, no wheezes, no rales, no ronchi Gastrointestinal: soft, non-tender, non-distended, normal bowel sounds Extremities: no cyanosis, no clubbing, no edema Skin: normal turgor, no lesions, no rashes Neurological - other findings: Right arm weakness. Can lift legs bilaterally. Left arm weak now and rigid Musculoskeletal - other findings: 0/5 RUE, 2/5 LUE, 5/5 LLE, 5/5 RLe Hosp A/P - Plan Carotid doppler: Limited exam, but possible left internal carotid artery stenosis CT brain: left scalp hematoma CT cervical spine: prominent degenerative changes Chest X ray: no acute findings MRI brain: small focus of restricted diffusion involving left temporal lobe Carotid dopplers: left internal carotid artery is not visualized. CTA head and neck: no significant stenosis ECHO: EF 55-60%, mild MR, mild TR MRI cervical spine: hematoma throughout retropharyngeal space of entire cervical spine and upper thoracic spine with possible tear of longitudinal ligament. High grade DJD from C3-C4 and C6-C7 and posterior perivertebral space kody This is a 64 year old male who presented to the ER after a fall , found to have a stroke Acute encephalopathy secondary to left temporal lobe stroke - patient has right arm weakness. CT brain negative, MRI shows left temporal lobe stroke . CTA head and neck unremarkable, carotid doppler showed possible left ICA stenosis - EEG was normal. NEurology started on keppra due to waxing and waning mental status - continue aspirin and statin - ECHO showed no thrombus - PT/OT and speech are following Retropharyngeal space hematoma -patient currently on room air, monitor for any signs of stridor and if present contact ENT - will transfer to ICU for closer monitoring Cervical DJD - MRI cervical spine showing high grade DJD . Neurosurgery consulted, stated no severe spinal process currently, will evaluate patient tomorrow Delirium - unclear etiology. EEG negative, does have mild stroke , not getting sedatives - blood culture positive 1/2 for alpha strep, will recheck - UA negative, chest X ray normal Possible BENJAMÍN? - patient was noted to be snoring upon evaluation this morning and obtunded. Consider ABG if reoccurs S/p fall - CT cervical spine shows degenerative changes - PT evaluation Anemia - Hb 12.6 today, stable Leukocytosis- resolved DVT prophylaxis: lovenox Code status: full code
[2020-05-29] MEDS: levETIRAcetam 500 MG TAB PO SCH (21:13)
[2020-05-29] MEDS: Atorvastatin Calcium 40 MG TAB PO SCH (21:13)
[2020-05-29] MEDS: Enoxaparin Sodium 40 MG/0.4 ML SYRINGE SC SCH (21:13)
[2020-05-30] MEDS: Sodium Chloride 0.9% 1,000 ML IV SCH ×5 (00:25→20:22)
[2020-05-30] MEDS: Melatonin 3 MG TAB PO PRN (00:44)
[2020-05-30] MEDS: Lorazepam 1 MG TAB PO PRN ×3 (02:39→20:23)
[2020-05-30] MEDS: Acetaminophen 325 MG TAB PO PRN ×2 (06:13→12:51)
--- NOTE | 2020-05-30 07:49 | CON ---
DATE OF CONSULTATION: 05/29/2020 REASON FOR CONSULTATION: Mr. Trinh is a 64-year-old gentleman, who was admitted for further workup and evaluation of altered mental status. He was found down in his brother's home 2 days ago. Our team was consulted for altered mental status, noncoherent speech, and intermittent bilateral arm weakness. He was noted to have a large left scalp hematoma. PAST MEDICAL HISTORY: Pertinent for hypertension and diabetes. PAST SURGICAL HISTORY: No prior head or spinal surgeries. IMPRESSION: 1. Confusion. 2. Cervical stenosis with intermittent bilateral arm weakness. 3. History of hypertension. 4. History of diabetes. PLAN: Case was discussed and imaging reviewed with Dr. Ledesma. MRI of the brain demonstrates no intracranial lesion that would explain the patient's symptoms. CTA of the head was negative for vascular abnormalities. MRI of the cervical spine demonstrates significant motion artifact, however, there is significant central and foraminal stenosis noted from C3-C7. Discussed with Dr. Ledesma, who states that a surgery can be offered, however, this would be an elective surgery given long-standing degenerative changes of the cervical spine. Likely surgery would be a C3-C7 anterior cervical diskectomy and fusion, as well as C3-C7 laminectomies and posterolateral instrumented fusion with screws and rods. There is no emergent or urgent need for this operation. Therefore, the patient may follow up with our team on an outpatient basis in the upcoming weeks for further evaluation and surgical discussion. Further workup of altered mental status is recommended, as current imaging studies do not explain etiology. Our team will contact the patient and his family in upcoming weeks to arrange for outpatient followup, as noted above. Job ID: [id number] [facility]
[2020-05-30] MEDS: Cyanocobalamin (Vitamin B-12) 1,000 MCG TAB PO SCH (09:11)
[2020-05-30] MEDS: Aspirin 81 mg Enteric Coated Tablet PO SCH (09:11)
[2020-05-30] MEDS: FLUoxetine HCl 20 MG CAP PO SCH (09:11)
[2020-05-30] MEDS: levETIRAcetam 500 MG TAB PO SCH ×2 (09:11→20:23)
[2020-05-30] MEDS: Folic Acid 1 MG TAB PO SCH (09:18)
--- NOTE | 2020-05-30 11:03 | EKG ---
Test Reason : Blood Pressure : / mmHG Vent. Rate : 100 BPM Atrial Rate : 100 BPM P-R Int : 142 ms QRS Dur : 084 ms QT Int : 374 ms P-R-T Axes : 057 048 045 degrees QTc Int : 482 ms Normal sinus rhythm Nonspecific ST abnormality Prolonged QT Abnormal ECG Confirmed by MERY MESA DO ([id number]), editor producer KAELYN GIRALDO ([id number]) on 05/30/2020 11:03:05 AM Referred By: Confirmed By:MERY MESA DO
--- NOTE | 2020-05-30 20:16 | CON ---
DATE OF CONSULTATION: 05/30/2020 HISTORY OF PRESENT ILLNESS: Luiz Trinh is a pleasant gentleman, 64, was found down by family members. He is transferred to the critical care unit last night because of altered mental status. He apparently fell downstairs at home and is felt to have done this because of a stroke. He now has upper extremity weakness. He has a left temporal lobe infarction. Cervical spine MRI shows hematoma in the retropharyngeal space of the entire cervical spine. I believe this is felt to be secondary to him falling downstairs. He has spinal stenosis that is severe and severe bilateral neural foraminal stenosis, chronic cord impingement and this extends from C3, C4-C5, C7. 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 I have been consulted because of his presence in the ICU. Today, he is actually alert. Family (brother) says he is much more alert than he has been in the last few days. He wants to go home. PAST MEDICAL HISTORY: Remarkable for hypertension and diabetes. SOCIAL HISTORY: He is a smoker. He was down to four or five cigarettes a day, but says since COVID, he is up to a pack a day. He denies being a daily drinker. FAMILY HISTORY: Negative for lung disease in early age. ALLERGIES: HE REPORTS NO PRESCRIPTION DRUG ALLERGIES. REVIEW OF SYSTEMS: Otherwise negative. PHYSICAL EXAMINATION: GENERAL: He is a pleasant gentleman, laughing, in no distress. VITAL SIGNS: Heart rates in the 90s, blood pressure , and respiratory rate is 20. HEENT: Pupils are equal. Sclerae are anicteric. NECK: Supple. LUNGS: Clear. HEART: Regular rhythm. ABDOMEN: Soft and nontender. EXTREMITIES: Without clubbing, cyanosis, or edema. EXTREMITIES: His upper extremities are weaker than his lower extremities. LABORATORY DATA: White count is 9.7, hemoglobin 12.6, and platelets 465. Electrolytes are unremarkable. IMPRESSION: Spinal cord trauma after stroke and a fall. PLAN: Supportive care. There were no airway issues at this time. We will follow the other physicians who are caring for him. TIME SPENT: This is a 70-minute consult, 50% of the time spent on the unit coordinating care. Job ID: [id number] [facility]
[2020-05-30] MEDS: Atorvastatin Calcium 40 MG TAB PO SCH (20:23)
[2020-05-30] MEDS: Enoxaparin Sodium 40 MG/0.4 ML SYRINGE SC SCH (20:23)
--- NOTE | 2020-05-30 20:40 | PDOC.HOSPP ---
- Subjective Encounter Date: 05/30/20 Encounter Time: 20:15 Subjective: f/u s/p fall with CHI and C-spine hematoma extending into upper T-spine. ? small L temporal CVA but pt states he can move everything except his arms. No speech or vision deficits. Swallowing without difficulty. - Objective Vital Signs & Weight: Vital Signs (12 hours) Temp 05/30/20 16:00 98.6 F 05/30/20 12:00 98.1 F Weight Admit Weight 203 lb 6.4 oz Weight 203 lb 6.4 oz Most Recent Monitor Data Heart Rate from ECG 96 NIBP 160/103 NIBP BP-Mean 122 Respiration from ECG 20 SpO2 100 I&O: 05/29/20 05/30/20 05/31/20 06:59 06:59 06:59 Intake Total 1440 2960 2004 Output Total 1475 3375 1650 Balance -35 -415 355 Result Diagrams: 05/29/20 15:08 05/28/20 04:46 Additional Labs: Accuchecks 05/30/20 05/30/20 05/29/20 11:18 06:16 21:35 POC Glucose 116 H 115 H 133 H Microbiology 05/27/20 15:59 Venous blood - Left Hand Blood Culture - Final Alpha-Strep, not S. pneumoniae 05/27/20 15:58 Venous blood - Right Hand Blood Culture - Preliminary NO GROWTH AT 48 HOURS Laboratory Tests 05/27/20 05/27/20 05/27/20 07:20 07:21 07:21 WBC 12.0 H Creatine Kinase 1672 H Vitamin B12 Folate TSH 3rd Generation Plasma Alcohol Less than 10 SARS-CoV-2 (PCR) 05/27/20 05/28/20 05/28/20 12:51 04:46 04:46 WBC 10.6 Creatine Kinase 955 H Vitamin B12 Folate TSH 3rd Generation Plasma Alcohol SARS-CoV-2 (PCR) Not Detected 05/29/20 05/29/20 04:28 04:28 WBC Creatine Kinase Vitamin B12 264 Folate 5.60 L TSH 3rd Generation 1.5377 Plasma Alcohol SARS-CoV-2 (PCR) Radiology Reviewed by me: Yes (MRI c-spine - retropharyngeal space hematoma extending to upper T-spine) EKG Reviewed by me: Yes (Tele - SR) Hospitalist ROS - Medication Medications: Active Medications Generic Name Dose Route Start Last Admin Trade Name Freq PRN Reason Stop Dose Admin Acetaminophen 650 mg 05/27/20 11:04 05/30/20 12:51 Acetaminophen 325 Mg Tab PO 650 mg Q4H PRN Administration Headache/Fever/Mild Pain (1-3) Aspirin 81 mg 05/28/20 09:00 05/30/20 09:11 Aspirin 81 Mg Enteric Coated Tablet PO 81 mg DAILY VENKATESH Administration Atorvastatin Calcium 40 mg 05/28/20 21:00 05/30/20 20:23 Atorvastatin Calcium 40 Mg Tab PO 40 mg HS VENKATESH Administration Cyanocobalamin 1,000 mcg 05/29/20 09:00 05/30/20 09:11 Cyanocobalamin (Vitamin B-12) 1,000 Mcg Tab PO 1,000 mcg DAILY VENKATESH Administration Enoxaparin Sodium 40 mg 05/27/20 21:00 05/30/20 20:23 Enoxaparin Sodium 40 Mg/0.4 Ml Syringe SC 40 mg HS VENKATESH Administration Fluoxetine HCl 20 mg 05/28/20 09:00 05/30/20 09:11 Fluoxetine Hcl 20 Mg Cap PO 20 mg DAILY VENKATESH Administration Folic Acid 1 mg 05/29/20 09:00 05/30/20 09:18 Folic Acid 1 Mg Tab PO 1 mg DAILY VENKATESH Administration Sodium Chloride 1,000 mls @ 100 mls/hr 05/27/20 11:30 05/30/20 20:22 Normal Saline 0.9% IV 1,000 mls .Q10H VENKATESH Administration Levetiracetam 500 mg/ Device 100 mls @ 200 mls/hr 05/29/20 21:00 05/30/20 09:18 IVPB Not Given BID VENKATESH Labetalol HCl 20 mg 05/28/20 01:37 05/29/20 03:39 Labetalol Hcl 100 Mg/20 Ml Vial SLOW IVP 20 mg Q4H PRN Administration SBP > 180 and HR >/= 70 Levetiracetam 500 mg 05/29/20 21:00 05/30/20 20:23 Levetiracetam 500 Mg Tab PO 500 mg BID VENKATESH Administration Lorazepam 2 mg 05/28/20 16:27 05/30/20 20:23 Lorazepam 1 Mg Tab PO 2 mg Q4H PRN Administration Anxiety/Agitation Melatonin 3 mg 05/30/20 00:36 05/30/20 00:44 Melatonin 3 Mg Tab PO 3 mg HS PRN Administration Insomnia Sodium Chloride 10 ml 05/27/20 21:00 05/30/20 09:12 Flush - Normal Saline 10 Ml Syringe IVF 10 ml Q12HR VENKATESH Administration - Exam General Appearance: NAD, awake alert Eye: PERRL, anicteric sclera ENT: normocephalic atraumatic, no oropharyngeal lesions Neck: supple, symmetric, no JVD, no thyromegaly, no lymphadenopathy, no carotid bruit Heart: RRR, no murmur, no gallops, no rubs, normal peripheral pulses Heart - other findings: S1, S2 Respiratory: CTAB, no wheezes, no rales, no ronchi, normal chest expansion, no tachypnea Gastrointestinal: soft, non-tender, non-distended, normal bowel sounds, no palpable masses Extremities: no cyanosis, no clubbing Skin: normal turgor Skin - other findings: L forehead with hematoma/contusion Neurological: cranial nerve grossly intact Neurological - other findings: no movement of BUE's, moves LE's Musculoskeletal: generalized weakness Psychiatric: normal affect, A&O x 3 Hosp A/P (1) Traumatic edema of cervical spinal cord Code(s): S14.0XXA - CONCUSSION AND EDEMA OF CERVICAL SPINAL CORD, INIT ENCNTR Status: Acute Plan: Likely contributing to Bilateral upper extremity weakness, continue PT/OT, likely will improve (2) Closed head injury Code(s): S09.90XA - UNSPECIFIED INJURY OF HEAD, INITIAL ENCOUNTER Status: Acute Plan: s/p fall/syncope with CHI, supportive mgmt (3) Syncope and collapse Code(s): R55 - SYNCOPE AND COLLAPSE Status: Acute Plan: ? etiology, ? fall with LOC (4) Acute CVA (cerebrovascular accident) Code(s): I63.9 - CEREBRAL INFARCTION, UNSPECIFIED Status: Acute Plan: Small area of restricted diffusion of L temporal region, ASA/Lipitor - Plan PT/OT, clinical social work aide, out of bed/ambulate, DVT proph w/SCDs Stable currently Continue routine mgmt Pain control as clinically indicated PT/OT for mobilization ? need for inpt rehab Resume home meds AM lab: BMP, CBC
[2020-05-30] MEDS ORDERED: Escitalopram Oxalate 20 mg Tablet PO SCH ×2 (21:00)
[2020-05-30] MEDS ORDERED: Bupropion 150 MG SR TAB PO SCH (21:00)
[2020-05-30] MEDS: Bupropion 150 MG SR TAB PO SCH (21:11)
[2020-05-31 03:59] LABS: #Basophils 0.1 thou/uL (0.0-0.2); #Eosinphils 0.5 thou/uL (0.0-0.7); #Lymphocytes 3.1 thou/uL (1.20-3.40); #Neutrophils 5.8 thou/uL (1.40-6.50); %Basophils 0.8 % (0.0-1.0); %Eosinophils 4.5 % (0.0-10.0); %Lymphocytes 29.9 % (21.0-51.0); %Monocytes 9.2 % (0.0-10.0); %Neutrophils 55.6 % (42.0-75.0); Hemoglobin 11.8 g/dL (14.0-18.0); Mean Corpuscular HGB CONC 33.8 g/dL (32.0-36.0); Mean Corpuscular Hemoglobin 32.9 pg (27.0-31.0); Mean Corpuscular Volume 97.3 fL (78.0-98.0); Mean Platelet Volume 6.1 fL (7.4-10.4); Platelet Count 406 thou/uL (130-400); RBC Distribution Width 12.7 % (11.5-14.5); Red Blood Cell (RBC) Count 3.58 mill/uL (4.70-6.10); White Blood Cell (WBC) Count 10.4 thou/uL (4.8-10.8)
[2020-05-31 04:22] LABS: Anion Gap 13 mmol/L (10-20); BUN (Urea Nitrogen) 13 mg/dL (8.4-25.7); Calc. Creatinine Clearance 133 mL/min (70-130); Calcium 8.7 mg/dL (7.8-10.44); Carbon Dioxide 23 mmol/L (23-31); Chloride 107 mmol/L (98-107); Estimated GFR-MDRD Greater than 90; Glucose 110 mg/dL (80-115); Potassium 4.1 mmol/L (3.5-5.1); Sodium 139 mmol/L (136-145)
[2020-05-31] MEDS: Bupropion 150 MG SR TAB PO SCH ×2 (09:45→21:18)
[2020-05-31] MEDS: Folic Acid 1 MG TAB PO SCH (09:45)
[2020-05-31] MEDS: Cyanocobalamin (Vitamin B-12) 1,000 MCG TAB PO SCH (09:45)
[2020-05-31] MEDS: Escitalopram Oxalate 20 mg Tablet PO SCH (09:45)
[2020-05-31] MEDS: Aspirin 81 mg Enteric Coated Tablet PO SCH (09:45)
[2020-05-31] MEDS: levETIRAcetam 500 MG TAB PO SCH ×2 (10:08→21:18)
[2020-05-31] MEDS: Acetaminophen 325 MG TAB PO PRN (10:12)
--- NOTE | 2020-05-31 11:29 | PRG ---
DATE OF SERVICE: 05/31/2020 Mr. Trinh is a 64-year-old man, who was admitted 3 days ago after a fall altered mental status, but also what appeared to be initially diffuse weakness and then more focally upper extremity weakness. The patient was initially seen by Dr. Ledesma and Shakira Evans, who recommended physical therapy and an outpatient followup to discuss possible surgery for what appears to be rather significant central canal stenosis and degenerative cervical spine disease. Over the past 48 hours, his leg weakness has improved dramatically, but his arms are extraordinarily weak and he has limited function in both. His altered mental status has resolved. Sister and niece at bedside report to me that yesterday he was at his normal baseline neurologically and appears to be doing quite well and is in good spirits. He is resting pretty heavily this morning. They asked for family discussion regarding diagnosis and plan as they have been told several different things. He does have 1 small area of what appears to be acute infarction to the left temporal lobe in the periventricular region, but again this is quite small and most certainly would not be impactful to his motor presentation. Additionally, there has been a great deal of focus on an anterior spinal or retropharyngeal fluid collection that spans essentially the entire cervical spine. This does not appear to be likely traumatic hematoma and may be associated with a tear of the anterior longitudinal ligament at around the C5-C6 level based on the appearance of this MRI scan. He has no stridor, has maintained 100% O2 sats on room air only, and protect his airway. Speech is uninhibited and he has no dysphagia. All these things were discussed with family at bedside. After review of his chart, imaging, and his clinical presentation in the last 72 hours, to me this most certainly represents central cord syndrome. The description of a fall at home with obvious large frontal hematoma to the left side of the forehead and the setting of rather significant central canal disease of the cervical spine also fits this as well as the clinical picture of diffuse weakness with rapid improvement in bilateral lower extremities and persistence of weakness to the bilateral upper extremities. I had an extensive discussion with the sister at bedside and sister on the phone regarding the plan for this diagnosis, which would be extensive rehabilitation and recommendation for inpatient rehab placement within discussion and review of his progress in the next few weeks ultimately with plan for surgical intervention, likely ACDF. Sister on the phone, who is a nurse in [place], made it clear that she had concerns over the discussed procedure, which was an anterior cervical diskectomy and fusion and would rather have a different surgery performed. I had a discussion with all family members that if they have met with 5 separate neurosurgeons, orthopedic spine surgeons, they would likely get several different recommendations just based upon comfort level with any given procedure and their background and training. From Neurosurgery perspective, there is no additional intervention that is necessary Mr. Trinh will most certainly need aggressive rehabilitation. Again, best likely served in the inpatient setting at [facility] with an outpatient followup plan. Dr. Ledesma and Shakira Evans' team to discuss further management going forward in the outpatient setting. Again, no immediate intervention is planned from Neurosurgery perspective. The patient will need to wear a collar when he is up and about or participating with therapy. Job ID: [id number]
[2020-05-31] MEDS: Sodium Chloride 0.9% 1,000 ML IV SCH ×2 (11:59→19:33)
[2020-05-31] MEDS ORDERED: Nicotine 14 MG PATCH TOP SCH (12:00)
[2020-05-31] MEDS ORDERED: Ketorolac Tromethamine 30 MG/ML VIAL IVP SCH (12:45)
--- NOTE | 2020-05-31 14:22 | PRG ---
DATE OF SERVICE: 05/31/2020 SUBJECTIVE: Luiz Trinh is insistent that he is going home. He has not ambulated. He can barely move his arms. Physical therapy got him up to the side of the bed, I do not believe he stood. OBJECTIVE: Hemodynamics have been stable. He still has a contusion on his forehead. Lungs are clear. Heart, regular rhythm abdomen is soft. Extremities without edema. He still needs to be where somebody is reasonably close to him from a nursing standpoint. Family said they cannot stay with him. He actually is at times fairly abusive toward the staff about not being able to go home and has no understanding of the severity of his current condition. Clinically, he is behaving like someone with a central cord injury, most likely secondary to his fall down the stairs. It is unclear whether or not he would be a candidate to go to an LTAC or , but he certainly cannot go home. He will be transferred to the intermediate care unit, and an evaluation for some type of inpatient neuro rehab would be the best option in my opinion. Apparently, no neurosurgical intervention is planned or necessary. Job ID: [id number]
--- NOTE | 2020-05-31 18:40 | PDOC.HOSPP ---
- Subjective Encounter Date: 05/31/20 Encounter Time: 18:05 Subjective: f/u s/p syncope/fall and CHI with severe C-spine stenosis and retropharyngeal hematoma with bilat UE weakness. Moving LE's but still has profound weakness of upper extremities. - Objective Vital Signs & Weight: Vital Signs (12 hours) Temp Pulse Pulse BP BP Pulse Ox Pulse Ox 05/31/20 16:00 98.4 F 05/31/20 12:00 98.4 F 05/31/20 08:48 99 104 H 162/95 H 145/103 H 100 05/31/20 08:00 98.7 F 99 Pulse Ox 05/31/20 16:00 05/31/20 12:00 05/31/20 08:48 98 05/31/20 08:00 Weight Admit Weight 203 lb 6.4 oz Weight 203 lb 6.4 oz Most Recent Monitor Data Heart Rate from ECG 75 NIBP 110/69 NIBP BP-Mean 82 Respiration from ECG 16 SpO2 100 I&O: 05/30/20 05/31/20 06/01/20 06:59 06:59 06:59 Intake Total 2960 3323 1642.6 Output Total 3375 3770 1610 Balance -415 -447 32.6 Result Diagrams: 05/31/20 03:12 05/31/20 03:12 Additional Labs: Accuchecks 05/31/20 05/30/20 06:17 20:44 POC Glucose 114 H 119 H Microbiology 05/27/20 15:59 Venous blood - Left Hand Blood Culture - Final Alpha-Strep, not S. pneumoniae 05/27/20 15:58 Venous blood - Right Hand Blood Culture - Preliminary NO GROWTH AT 48 HOURS Laboratory Tests 05/27/20 05/27/20 05/27/20 07:20 07:21 07:21 WBC 12.0 H Creatine Kinase 1672 H Vitamin B12 Folate TSH 3rd Generation Plasma Alcohol Less than 10 SARS-CoV-2 (PCR) 05/27/20 05/28/20 05/28/20 12:51 04:46 04:46 WBC 10.6 Creatine Kinase 955 H Vitamin B12 Folate TSH 3rd Generation Plasma Alcohol SARS-CoV-2 (PCR) Not Detected 05/29/20 05/29/20 04:28 04:28 WBC Creatine Kinase Vitamin B12 264 Folate 5.60 L TSH 3rd Generation 1.5377 Plasma Alcohol SARS-CoV-2 (PCR) EKG Reviewed by me: Yes (Tele - SR) Hospitalist ROS - Medication Medications: Active Medications Generic Name Dose Route Start Last Admin Trade Name Freq PRN Reason Stop Dose Admin Acetaminophen 650 mg 05/27/20 11:04 05/31/20 10:12 Acetaminophen 325 Mg Tab PO 650 mg Q4H PRN Administration Headache/Fever/Mild Pain (1-3) Aspirin 81 mg 05/28/20 09:00 05/31/20 09:45 Aspirin 81 Mg Enteric Coated Tablet PO 81 mg DAILY VENKATESH Administration Atorvastatin Calcium 40 mg 05/28/20 21:00 05/30/20 20:23 Atorvastatin Calcium 40 Mg Tab PO 40 mg HS VENKATESH Administration Bupropion HCl 150 mg 05/30/20 21:00 05/31/20 09:45 Bupropion 150 Mg Sr Tab PO 150 mg BID VENKATESH Administration Cyanocobalamin 1,000 mcg 05/29/20 09:00 05/31/20 09:45 Cyanocobalamin (Vitamin B-12) 1,000 Mcg Tab PO 1,000 mcg DAILY VENKATESH Administration Enoxaparin Sodium 40 mg 05/27/20 21:00 05/30/20 20:23 Enoxaparin Sodium 40 Mg/0.4 Ml Syringe SC 40 mg HS VENKATESH Administration Escitalopram Oxalate 20 mg 05/31/20 09:00 05/31/20 09:45 Escitalopram Oxalate 20 Mg Tablet PO 20 mg DAILY VENKATESH Administration Folic Acid 1 mg 05/29/20 09:00 05/31/20 09:45 Folic Acid 1 Mg Tab PO 1 mg DAILY VENKATESH Administration Sodium Chloride 1,000 mls @ 100 mls/hr 05/27/20 11:30 05/31/20 11:59 Normal Saline 0.9% IV 1,000 mls .Q10H VENKATESH Administration Levetiracetam 500 mg/ Device 100 mls @ 200 mls/hr 05/29/20 21:00 05/31/20 10:08 IVPB Not Given BID VENKATESH Dexmedetomidine HCl 400 mcg/ 100 mls @ 0 mls/hr 05/31/20 11:15 05/31/20 11:59 Sodium Chloride IVPB 100 mls INF VENKATESH Administration Protocol Titrate Ketorolac Tromethamine 30 mg 05/31/20 12:45 05/31/20 12:52 Ketorolac Tromethamine 30 Mg/Ml Vial IVP 05/31/20 18:45 30 mg NOW VENKATESH Administration Labetalol HCl 20 mg 05/28/20 01:37 05/29/20 03:39 Labetalol Hcl 100 Mg/20 Ml Vial SLOW IVP 20 mg Q4H PRN Administration SBP > 180 and HR >/= 70 Levetiracetam 500 mg 05/29/20 21:00 05/31/20 10:08 Levetiracetam 500 Mg Tab PO 500 mg BID VENKATESH Administration Lorazepam 2 mg 05/28/20 16:27 05/30/20 20:23 Lorazepam 1 Mg Tab PO 2 mg Q4H PRN Administration Anxiety/Agitation Melatonin 3 mg 05/30/20 00:36 05/30/20 00:44 Melatonin 3 Mg Tab PO 3 mg HS PRN Administration Insomnia Nicotine 14 mg 05/31/20 12:00 05/31/20 11:59 Nicotine 14 Mg Patch TOP 14 mg Q24HR VENKATESH Administration Sodium Chloride 10 ml 05/27/20 21:00 05/31/20 10:09 Flush - Normal Saline 10 Ml Syringe IVF 10 ml Q12HR VENKATESH Administration - Exam General - other findings: sleepy/groggy Eye: PERRL, anicteric sclera ENT: normocephalic atraumatic, no oropharyngeal lesions Neck: supple, symmetric, no JVD, no thyromegaly, no lymphadenopathy Heart: RRR, no gallops, no rubs, normal peripheral pulses Heart - other findings: S1, S2 Respiratory: no rales, no tachypnea Respiratory - other findings: few basilar wheezes Gastrointestinal: soft, non-tender, non-distended, normal bowel sounds, no palpable masses Extremities: no cyanosis, no clubbing, no edema Skin: normal turgor Skin - other findings: L forehead contusion Neurological: no new deficit Neurological - other findings: UE weakness, minimal shoulder movement Psychiatric: A&O x 3, somnolent Hosp A/P (1) Traumatic edema of cervical spinal cord Code(s): S14.0XXA - CONCUSSION AND EDEMA OF CERVICAL SPINAL CORD, INIT ENCNTR Status: Acute Plan: Continue supportive mgmt, likely will need ACDF in near future due to stenosis (2) Closed head injury Code(s): S09.90XA - UNSPECIFIED INJURY OF HEAD, INITIAL ENCOUNTER Status: Acute Plan: Fall risk precautions, PT for mobilization (3) Syncope and collapse Code(s): R55 - SYNCOPE AND COLLAPSE Status: Acute (4) Acute CVA (cerebrovascular accident) Code(s): I63.9 - CEREBRAL INFARCTION, UNSPECIFIED Status: Acute Plan: Mild restricted diffusion L temporal lobe, ASA/Lipitor - Plan PT/OT, foster care social worker, out of bed/ambulate, DVT proph w/SCDs Stable currently Pain control as clinically indicated Toradol IV PRN PT/OT for mobilization Inpt Rehab options Resume home meds Nicotine patch
[2020-05-31] MEDS: Lorazepam 1 MG TAB PO PRN (21:17)
[2020-05-31] MEDS: Enoxaparin Sodium 40 MG/0.4 ML SYRINGE SC SCH (21:17)
[2020-05-31] MEDS: Atorvastatin Calcium 40 MG TAB PO SCH (21:17)
[2020-06-01] MEDS: Sodium Chloride 0.9% 1,000 ML IV SCH ×3 (05:33→20:18)
[2020-06-01] MEDS: Ketorolac Tromethamine 30 MG/ML VIAL IVP PRN (07:44)
[2020-06-01] MEDS: Cyanocobalamin (Vitamin B-12) 1,000 MCG TAB PO SCH (08:05)
[2020-06-01] MEDS: Bupropion 150 MG SR TAB PO SCH ×2 (08:05→20:13)
[2020-06-01] MEDS: Aspirin 81 mg Enteric Coated Tablet PO SCH (08:05)
[2020-06-01] MEDS: levETIRAcetam 500 MG TAB PO SCH ×2 (08:06→20:13)
[2020-06-01] MEDS: Folic Acid 1 MG TAB PO SCH (08:06)
[2020-06-01] MEDS: Escitalopram Oxalate 20 mg Tablet PO SCH (08:06)
[2020-06-01] MEDS: Nicotine 21 MG PATCH TD SCH (08:06)
--- NOTE | 2020-06-01 12:53 | PDOC.NEUPN ---
- Subjective Encounter Date: 06/01/20 Subjective: Patient is alert and oriented and speaking in full word sentences. Weakness in the legs is almost resolved but still has weakness in the upper extremities. MRI cervical spine showed severe C-spine stenosis with retropharyngeal hematoma - Objective Vital Signs & Weight: Vital Signs (12 hours) Temp Pulse Ox 06/01/20 08:00 99 06/01/20 07:00 98.6 F 06/01/20 04:00 97.9 F Weight Admit Weight 203 lb 6.4 oz Weight 203 lb 6.4 oz Most Recent Monitor Data Heart Rate from ECG 94 NIBP 176/104 NIBP BP-Mean 128 Respiration from ECG 19 SpO2 100 I&O: 05/31/20 06/01/20 06/02/20 06:59 06:59 06:59 Intake Total 3323 3753.9 Output Total 3770 3130 1450 Balance -447 623.9 -1450 Result Diagrams: 05/31/20 03:12 05/31/20 03:12 Additional Labs: Accuchecks 06/01/20 05/31/20 05/31/20 06:18 21:16 17:02 POC Glucose 98 151 H 146 H 05/31/20 10:44 POC Glucose 114 H Radiology Reviewed by me: Yes EKG Reviewed by me: Yes ROS - Review of Systems Constitutional: denies: fever, chills, sweats, weakness, malaise, other Eyes: denies: pain, vision change, conjunctivae inflammation, eyelid inflammation, redness, other ENT: denies: ear pain, ear discharge, nose pain, nose discharge, nose congestion, mouth pain, mouth swelling, throat pain, throat swelling, other Respiratory: denies: cough, dry, shortness of breath, hemoptysis, SOB with excertion, pleuritic pain, sputum, wheezing, other Musculoskeletal: reports: neck pain, shoulder pain. denies: arm pain, back pain, hand pain, leg pain, foot pain, other Neurological: reports: weakness, numbness. denies: incoordination, change in speech, confusion, seizures, other - Medication Medications: Active Medications Generic Name Dose Route Start Last Admin Trade Name Freq PRN Reason Stop Dose Admin Acetaminophen 650 mg 05/27/20 11:04 05/31/20 10:12 Acetaminophen 325 Mg Tab PO 650 mg Q4H PRN Administration Headache/Fever/Mild Pain (1-3) Aspirin 81 mg 05/28/20 09:00 06/01/20 08:05 Aspirin 81 Mg Enteric Coated Tablet PO 81 mg DAILY VENKATESH Administration Atorvastatin Calcium 40 mg 05/28/20 21:00 05/31/20 21:17 Atorvastatin Calcium 40 Mg Tab PO 40 mg HS VENKATESH Administration Bupropion HCl 150 mg 05/30/20 21:00 06/01/20 08:05 Bupropion 150 Mg Sr Tab PO 150 mg BID VENKATESH Administration Cyanocobalamin 1,000 mcg 05/29/20 09:00 06/01/20 08:05 Cyanocobalamin (Vitamin B-12) 1,000 Mcg Tab PO 1,000 mcg DAILY VENKATESH Administration Enoxaparin Sodium 40 mg 05/27/20 21:00 05/31/20 21:17 Enoxaparin Sodium 40 Mg/0.4 Ml Syringe SC 40 mg HS VENKATESH Administration Escitalopram Oxalate 20 mg 05/31/20 09:00 06/01/20 08:06 Escitalopram Oxalate 20 Mg Tablet PO 20 mg DAILY VENKATESH Administration Folic Acid 1 mg 05/29/20 09:00 06/01/20 08:06 Folic Acid 1 Mg Tab PO 1 mg DAILY VENKATESH Administration Sodium Chloride 1,000 mls @ 100 mls/hr 05/27/20 11:30 06/01/20 05:33 Normal Saline 0.9% IV 1,000 mls .Q10H VENKATESH Administration Levetiracetam 500 mg/ Device 100 mls @ 200 mls/hr 05/29/20 21:00 06/01/20 08:06 IVPB Not Given BID VENKATESH Dexmedetomidine HCl 400 mcg/ 100 mls @ 0 mls/hr 05/31/20 11:15 05/31/20 11:59 Sodium Chloride IVPB 100 mls INF VENKATESH Administration Protocol Titrate Ketorolac Tromethamine 30 mg 05/31/20 18:40 06/01/20 07:44 Ketorolac Tromethamine 30 Mg/Ml Vial IVP 06/05/20 18:41 30 mg Q6H PRN Administration Mild-Moderate Pain (1-5) Labetalol HCl 20 mg 05/28/20 01:37 05/29/20 03:39 Labetalol Hcl 100 Mg/20 Ml Vial SLOW IVP 20 mg Q4H PRN Administration SBP > 180 and HR >/= 70 Levetiracetam 500 mg 05/29/20 21:00 06/01/20 08:06 Levetiracetam 500 Mg Tab PO 500 mg BID VENKATESH Administration Lorazepam 2 mg 05/28/20 16:27 05/31/20 21:17 Lorazepam 1 Mg Tab PO 2 mg Q4H PRN Administration Anxiety/Agitation Melatonin 3 mg 05/30/20 00:36 05/30/20 00:44 Melatonin 3 Mg Tab PO 3 mg HS PRN Administration Insomnia Nicotine 21 mg 06/01/20 09:00 06/01/20 08:06 Nicotine 21 Mg Patch TD 21 mg DAILY VENKATESH Administration Sodium Chloride 10 ml 05/27/20 21:00 06/01/20 08:06 Flush - Normal Saline 10 Ml Syringe IVF 10 ml Q12HR VENKATESH Administration - Exam General Appearance: awake alert Eye: PERRL ENT: normocephalic atraumatic Neck: supple Respiratory: CTAB Cardiovascular: RRR Gastrointestinal: soft Extremities: no cyanosis Skin: normal turgor Neurological: no new deficit Neurological - other findings: BUE 2/5 BLE 5/5 Musculoskeletal: normal tone, no muscle wasting PSYCH: normal affect, normal behavior, A&O x 3 Results - Labs Result Diagrams: 05/31/20 03:12 05/31/20 03:12 Lab results: WBC 10.4 thou/uL (4.8-10.8) 05/31/20 03:12 Hgb 11.8 g/dL (14.0-18.0) L 05/31/20 03:12 Hct 34.8 % (42.0-52.0) L 05/31/20 03:12 MCV 97.3 fL (78.0-98.0) 05/31/20 03:12 Plt Count 406 thou/uL (130-400) H 05/31/20 03:12 Neutrophils % 55.6 % (42.0-75.0) 05/31/20 03:12 Sodium 139 mmol/L (136-145) 05/31/20 03:12 Potassium 4.1 mmol/L (3.5-5.1) 05/31/20 03:12 Chloride 107 mmol/L (98-107) 05/31/20 03:12 Carbon Dioxide 23 mmol/L (23-31) 05/31/20 03:12 BUN 13 mg/dL (8.4-25.7) 05/31/20 03:12 Creatinine 0.74 mg/dL (0.7-1.3) 05/31/20 03:12 Glucose 110 mg/dL (80-115) 05/31/20 03:12 Lactic Acid 1.5 mmol/L (0.5-2.2) 05/27/20 07:20 Calcium 8.7 mg/dL (7.8-10.44) 05/31/20 03:12 Total Bilirubin 0.7 mg/dL (0.2-1.2) 05/27/20 07:21 AST 32 U/L (5-34) 05/27/20 07:21 ALT 27 U/L (8-55) 05/27/20 07:21 Alkaline Phosphatase 74 U/L (40-110) 05/27/20 07:21 Ammonia 36 umol/L (18-72) 05/27/20 15:59 Creatine Kinase 955 U/L (30-200) H 05/28/20 04:46 Troponin I Less than 0.010 ng/mL (< 0.028) 05/27/20 15:58 Serum Total Protein 7.3 g/dL (5.8-8.1) 05/27/20 07:21 Albumin 4.2 g/dL (3.4-4.8) 05/27/20 07:21 Lipase 14 U/L (8-78) 05/27/20 07:21 Urine Ketones Negative mg/dL (Negative) 05/27/20 09:20 Urine Blood Negative (Negative) 05/27/20 09:20 Urine Nitrite Negative (Negative) 05/27/20 09:20 Ur Leukocyte Esterase Negative Zai/uL (Negative) 05/27/20 09:20 - Radiology Interpretation Other Status: image reviewed by me, report reviewed by me Additional Comment: Cervical spine showed stenosis and hematoma. PN A/P (1) Acute CVA (cerebrovascular accident) Code(s): I63.9 - CEREBRAL INFARCTION, UNSPECIFIED Status: Acute (2) Bilateral arm weakness Code(s): R29.898 - OTH SYMPTOMS AND SIGNS INVOLVING THE MUSCULOSKELETAL SYSTEM Status: Acute (3) Bilateral leg weakness Code(s): R29.898 - [facility] SYMPTOMS AND SIGNS INVOLVING THE MUSCULOSKELETAL SYSTEM Status: Acute (4) Diabetes Code(s): E11.9 - TYPE 2 DIABETES MELLITUS WITHOUT COMPLICATIONS Status: Acute (5) Hypertension Code(s): I10 - ESSENTIAL (PRIMARY) HYPERTENSION Status: Acute - Plan Daily Plan: PT/OT, speech therapy, DVT proph w/SCDs 64-year-old male who presented with acute onset confusion status post fall. No focal deficits were evident on initial exam. MRI brain consistent with acute infarction in the left temporal region. However, the patient developed weakness of both upper and lower extremity on 05/29/2020 with waxing and waning mental status. Urgent MRI of the cervical spine was done which showed retropharyngeal hematoma and cervical spine stenosis. Neurosurgery on board and did not feel the need for surgical intervention over the weekend. The patient's bilateral lower extremity weakness is almost resolved on today's exam but he is still weak in the upper extremities and is unable to lift them above the bed. Continue PT/OT. He may need inpatient rehab. MRI of the brain reviewed and was positive for infarction in the left temporal region. EEG reviewed and was negative for seizure activity. Continue Keppra 500 mg twice daily since patient is increased risk of seizures because of infarction in the left temporal region. Carotid Dopplers completed. Limited study with concern of carotid stenosis. Follow-up CT angiogram of head and neck negative for hemodynamically significant stenosis. Neurochecks every 2 hours. Continue home medications. Permissive control of blood pressure at this time. Strict control of blood glucose. DVT prophylaxis. Continue speech therapy Continue medical management per primary team. Plan discussed in detail with the nursing staff and the patient. Please also discuss with Dr. Lamas
--- NOTE | 2020-06-01 13:01 | PRG ---
DATE OF SERVICE: 06/01/2020 SUBJECTIVE: His arms are still quite weak. He cannot actually hit a call button and has an air pressure generated call button at the bedside. OBJECTIVE: VITAL SIGNS: Heart rate is 80, blood pressure 176/104, respiratory rate is 20. LUNGS: Clear. HEART: Regular rhythm. ABDOMEN: Soft. LABORATORY DATA: White count 10.4, hemoglobin 11.8, platelets 406. Electrolytes are unremarkable. There is no new lab today. IMPRESSION: Central cord syndrome of unclear etiology. I suspect this is somehow related to his cervical spinal stenosis. Trying to put together a history that makes sense, leads me to believe that he may have had a seizure at the top of the stairs, falling down the stairs and then presented to the emergency room. He had 5/5 strength in all 4 extremities at that time, then subsequently had a change in mental status and was transferred to the ICU. His mental status came back to normal. He had weakness of his upper extremities more than his lower extremities. I would wonder if he did not have an ictal event on the Stroke Unit that traumatized his cord. Nothing else really makes sense given that he presented with four extremity 5/5 strength. In my opinion, the best option for him would be tear. He does have healthcare coverage, so he would be a candidate to go there, I would believe. I would wonder if it would not be worthwhile to re-image his cervical spine. The scan done three days ago showed the paraspinous hematoma in his retropharyngeal space involving his entire cervical spine, this was suggestive of tear of the anterior longitudinal ligament, but not felt to be the cause of his problems. He had congenital spinal stenosis with spondylosis on top of that. Apparently, his entire cervical spine cord was remarkable for neuroforaminal stenosis and chronic cord impingement. He is having tiny improvements in upper extremity strength each day. Tear evaluation should be pursued. Plan to discuss the above with Neurosurgery. Job ID: [id number] MTDD
--- NOTE | 2020-06-01 18:46 | PDOC.HOSPP ---
- Subjective Encounter Date: 06/01/20 Encounter Time: 18:30 Subjective: f/u for C-spine stenosis and retropharyngeal hematoma s/p fall with CHI and small L temporal CVA. States increased movement of LUE but not RUE. Moving BLE's without difficulty. - Objective Vital Signs & Weight: Vital Signs (12 hours) Temp Pulse Pulse BP BP Pulse Ox Pulse Ox 06/01/20 16:00 98.7 F 06/01/20 14:05 99 102 H 146/100 H 147/96 H 96 06/01/20 12:00 98.8 F 06/01/20 08:00 99 06/01/20 07:00 98.6 F Pulse Ox 06/01/20 16:00 06/01/20 14:05 96 06/01/20 12:00 06/01/20 08:00 06/01/20 07:00 Weight Admit Weight 203 lb 6.4 oz Weight 203 lb 6.4 oz Most Recent Monitor Data Heart Rate from ECG 85 NIBP 162/99 NIBP BP-Mean 120 Respiration from ECG 26 SpO2 95 I&O: 05/31/20 06/01/20 06/02/20 06:59 06:59 06:59 Intake Total 3323 3753.9 2444 Output Total 3770 3130 2620 Balance -447 623.9 -176 Result Diagrams: 05/31/20 03:12 05/31/20 03:12 Additional Labs: Accuchecks 06/01/20 05/31/20 05/31/20 06:18 21:16 17:02 POC Glucose 98 151 H 146 H 05/31/20 10:44 POC Glucose 114 H Microbiology 05/27/20 15:59 Venous blood - Left Hand Blood Culture - Final Alpha-Strep, not S. pneumoniae 05/27/20 15:58 Venous blood - Right Hand Blood Culture - Preliminary NO GROWTH AT 48 HOURS Laboratory Tests 05/27/20 05/27/20 05/27/20 07:20 07:21 07:21 WBC 12.0 H Creatine Kinase 1672 H Vitamin B12 Folate TSH 3rd Generation Plasma Alcohol Less than 10 SARS-CoV-2 (PCR) 05/27/20 05/28/20 05/28/20 12:51 04:46 04:46 WBC 10.6 Creatine Kinase 955 H Vitamin B12 Folate TSH 3rd Generation Plasma Alcohol SARS-CoV-2 (PCR) Not Detected 05/29/20 05/29/20 04:28 04:28 WBC Creatine Kinase Vitamin B12 264 Folate 5.60 L TSH 3rd Generation 1.5377 Plasma Alcohol SARS-CoV-2 (PCR) EKG Reviewed by me: Yes (Tele - SR) Hospitalist ROS - Medication Medications: Active Medications Generic Name Dose Route Start Last Admin Trade Name Freq PRN Reason Stop Dose Admin Acetaminophen 650 mg 05/27/20 11:04 05/31/20 10:12 Acetaminophen 325 Mg Tab PO 650 mg Q4H PRN Administration Headache/Fever/Mild Pain (1-3) Aspirin 81 mg 05/28/20 09:00 06/01/20 08:05 Aspirin 81 Mg Enteric Coated Tablet PO 81 mg DAILY VENKATESH Administration Atorvastatin Calcium 40 mg 05/28/20 21:00 05/31/20 21:17 Atorvastatin Calcium 40 Mg Tab PO 40 mg HS VENKATESH Administration Bupropion HCl 150 mg 05/30/20 21:00 06/01/20 08:05 Bupropion 150 Mg Sr Tab PO 150 mg BID VENKATESH Administration Cyanocobalamin 1,000 mcg 05/29/20 09:00 06/01/20 08:05 Cyanocobalamin (Vitamin B-12) 1,000 Mcg Tab PO 1,000 mcg DAILY VENKATESH Administration Enoxaparin Sodium 40 mg 05/27/20 21:00 05/31/20 21:17 Enoxaparin Sodium 40 Mg/0.4 Ml Syringe SC 40 mg HS VENKATESH Administration Escitalopram Oxalate 20 mg 05/31/20 09:00 06/01/20 08:06 Escitalopram Oxalate 20 Mg Tablet PO 20 mg DAILY VENKATESH Administration Folic Acid 1 mg 05/29/20 09:00 06/01/20 08:06 Folic Acid 1 Mg Tab PO 1 mg DAILY VENKATESH Administration Sodium Chloride 1,000 mls @ 100 mls/hr 05/27/20 11:30 06/01/20 17:56 Normal Saline 0.9% IV Not Given .Q10H VENKATESH Levetiracetam 500 mg/ Device 100 mls @ 200 mls/hr 05/29/20 21:00 06/01/20 08:06 IVPB Not Given BID VENKATESH Dexmedetomidine HCl 400 mcg/ 100 mls @ 0 mls/hr 05/31/20 11:15 05/31/20 11:59 Sodium Chloride IVPB 100 mls INF VENKATESH Administration Protocol Titrate Ketorolac Tromethamine 30 mg 05/31/20 18:40 06/01/20 07:44 Ketorolac Tromethamine 30 Mg/Ml Vial IVP 06/05/20 18:41 30 mg Q6H PRN Administration Mild-Moderate Pain (1-5) Labetalol HCl 20 mg 05/28/20 01:37 05/29/20 03:39 Labetalol Hcl 100 Mg/20 Ml Vial SLOW IVP 20 mg Q4H PRN Administration SBP > 180 and HR >/= 70 Levetiracetam 500 mg 05/29/20 21:00 06/01/20 08:06 Levetiracetam 500 Mg Tab PO 500 mg BID VENKATESH Administration Lorazepam 2 mg 05/28/20 16:27 05/31/20 21:17 Lorazepam 1 Mg Tab PO 2 mg Q4H PRN Administration Anxiety/Agitation Melatonin 3 mg 05/30/20 00:36 05/30/20 00:44 Melatonin 3 Mg Tab PO 3 mg HS PRN Administration Insomnia Nicotine 21 mg 06/01/20 09:00 06/01/20 08:06 Nicotine 21 Mg Patch TD 21 mg DAILY VENKATESH Administration Sodium Chloride 10 ml 05/27/20 21:00 06/01/20 08:06 Flush - Normal Saline 10 Ml Syringe IVF 10 ml Q12HR VENKATESH Administration - Exam General Appearance: NAD, awake alert Eye: PERRL, anicteric sclera ENT: normocephalic atraumatic, no oropharyngeal lesions Neck: supple, symmetric, no JVD, no thyromegaly, no lymphadenopathy Heart: RRR, no gallops, no rubs, normal peripheral pulses Heart - other findings: S1, S2 Respiratory: CTAB, no wheezes, no rales, no ronchi, normal chest expansion, no tachypnea Gastrointestinal: soft, non-tender, non-distended, normal bowel sounds, no palpable masses Extremities: no cyanosis, no clubbing, no edema Skin: normal turgor, no lesions Neurological: cranial nerve grossly intact Neurological - other findings: BUE 1-2/5; BLE 5/5 Musculoskeletal: generalized weakness Psychiatric: normal affect, A&O x 3 Hosp A/P (1) Traumatic edema of cervical spinal cord Code(s): S14.0XXA - CONCUSSION AND EDEMA OF CERVICAL SPINAL CORD, INIT ENCNTR Status: Acute Plan: Continue supportive mgmt, PT/OT for mobilization, plan for inpt rehab (2) Closed head injury Code(s): S09.90XA - UNSPECIFIED INJURY OF HEAD, INITIAL ENCOUNTER Status: Acute (3) Syncope and collapse Code(s): R55 - SYNCOPE AND COLLAPSE Status: Acute (4) Acute CVA (cerebrovascular accident) Code(s): I63.9 - CEREBRAL INFARCTION, UNSPECIFIED Status: Acute Plan: Continue routine stroke protocol, small area of infarct in L temporal lobe - Plan plan discussed w/ family, PT/OT, social welfare research worker, DVT proph w/SCDs Stable currently Pain control as clinically indicated Toradol IV PRN PT/OT for mobilization Inpt Rehab options Resume home meds Nicotine patch
[2020-06-01] MEDS: Enoxaparin Sodium 40 MG/0.4 ML SYRINGE SC SCH (20:13)
[2020-06-01] MEDS: Lorazepam 1 MG TAB PO PRN (22:14)
[2020-06-02] MEDS: Ketorolac Tromethamine 30 MG/ML VIAL IVP PRN ×3 (01:35→22:48)
[2020-06-02] MEDS: Lorazepam 1 MG TAB PO PRN ×2 (04:17→21:52)
[2020-06-02] MEDS: Acetaminophen 325 MG TAB PO PRN ×2 (06:11→20:06)
[2020-06-02 06:43] VITALS: BMI 29.9
[2020-06-02] MEDS: Nicotine 21 MG PATCH TD SCH (08:53)
[2020-06-02] MEDS: Cyanocobalamin (Vitamin B-12) 1,000 MCG TAB PO SCH (08:55)
[2020-06-02] MEDS: Lisinopril 20 MG TAB PO SCH (08:56)
[2020-06-02] MEDS: metFORMIN 500 MG TAB PO SCH (08:56)
[2020-06-02] MEDS: Amlodipine 5 MG TAB PO SCH (08:57)
[2020-06-02] MEDS: Folic Acid 1 MG TAB PO SCH (08:57)
[2020-06-02] MEDS: Bupropion 150 MG SR TAB PO SCH ×2 (08:57→20:18)
[2020-06-02] MEDS: Escitalopram Oxalate 20 mg Tablet PO SCH (08:57)
[2020-06-02] MEDS: Aspirin 81 mg Enteric Coated Tablet PO SCH (08:57)
[2020-06-02] MEDS: levETIRAcetam 500 MG TAB PO SCH ×2 (08:58→20:05)
[2020-06-02] MEDS: Sodium Chloride 0.9% 1,000 ML IV SCH (08:59)
--- NOTE | 2020-06-02 12:15 | PDOC.NEUPN ---
- Subjective Encounter Date: 06/02/20 Subjective: Patient is alert and oriented . Weakness in the legs is almost resolved but still has weakness in the upper extremities. - Objective Vital Signs & Weight: Vital Signs (12 hours) Temp Pulse BP Pulse Ox 06/02/20 08:57 81 147/100 H 06/02/20 08:56 147/100 H 06/02/20 08:00 97.5 F L 97 06/02/20 04:00 99.3 F Weight Admit Weight 203 lb 6.4 oz Weight 203 lb 0.732 oz Most Recent Monitor Data Heart Rate from ECG 82 NIBP 118/77 NIBP BP-Mean 90 Respiration from ECG 17 SpO2 95 I&O: 06/01/20 06/02/20 06/03/20 06:59 06:59 06:59 Intake Total 3753.9 2844 270 Output Total 3130 4864 690 Balance 623.9 -1876 -420 Result Diagrams: 05/31/20 03:12 05/31/20 03:12 Additional Labs: Accuchecks 06/02/20 06/02/20 06/02/20 10:53 05:40 02:23 POC Glucose 123 H 100 126 H 06/01/20 06/01/20 06/01/20 20:16 17:53 11:49 POC Glucose 155 H 90 112 H Radiology Reviewed by me: Yes EKG Reviewed by me: Yes ROS - Review of Systems Constitutional: denies: fever, chills, sweats, weakness, malaise, other Eyes: denies: pain, vision change, conjunctivae inflammation, eyelid inflammation, redness, other ENT: denies: ear pain, ear discharge, nose pain, nose discharge, nose congestion, mouth pain, mouth swelling, throat pain, throat swelling, other Gastrointestinal: denies: nausea, vomiting, abdominal pain, diarrhea, constipation, melena, hematochezia, other Neurological: reports: weakness, numbness All Systems: All other systems reviewed; all pertinent +/- noted in HPI/Subj - Medication Medications: Active Medications Generic Name Dose Route Start Last Admin Trade Name Freq PRN Reason Stop Dose Admin Acetaminophen 650 mg 05/27/20 11:04 06/02/20 06:11 Acetaminophen 325 Mg Tab PO 650 mg Q4H PRN Administration Headache/Fever/Mild Pain (1-3) Amlodipine Besylate 5 mg 06/02/20 09:00 06/02/20 08:57 Amlodipine 5 Mg Tab PO 5 mg DAILY VENKATESH Administration Aspirin 81 mg 05/28/20 09:00 06/02/20 08:57 Aspirin 81 Mg Enteric Coated Tablet PO 81 mg DAILY VENKATESH Administration Bupropion HCl 150 mg 05/30/20 21:00 06/02/20 08:57 Bupropion 150 Mg Sr Tab PO 150 mg BID VENKATESH Administration Cyanocobalamin 1,000 mcg 05/29/20 09:00 06/02/20 08:55 Cyanocobalamin (Vitamin B-12) 1,000 Mcg Tab PO 1,000 mcg DAILY VENKATESH Administration Enoxaparin Sodium 40 mg 05/27/20 21:00 06/01/20 20:13 Enoxaparin Sodium 40 Mg/0.4 Ml Syringe SC 40 mg HS VENKATESH Administration Escitalopram Oxalate 20 mg 05/31/20 09:00 06/02/20 08:57 Escitalopram Oxalate 20 Mg Tablet PO 20 mg DAILY VENKATESH Administration Folic Acid 1 mg 05/29/20 09:00 06/02/20 08:57 Folic Acid 1 Mg Tab PO 1 mg DAILY VENKATESH Administration Sodium Chloride 1,000 mls @ 100 mls/hr 05/27/20 11:30 06/02/20 08:59 Normal Saline 0.9% IV 1,000 mls .Q10H VENKATESH Administration Dexmedetomidine HCl 400 mcg/ 100 mls @ 0 mls/hr 05/31/20 11:15 05/31/20 11:59 Sodium Chloride IVPB 100 mls INF VENKATESH Administration Protocol Titrate Insulin Human Lispro 0 units 05/27/20 11:04 06/01/20 20:32 Humalog 300 Units/3 Ml Vial SC 2 unit .MILD SLIDING SCALE PRN Administration Mild Correctional Scale Ketorolac Tromethamine 30 mg 05/31/20 18:40 06/02/20 11:51 Ketorolac Tromethamine 30 Mg/Ml Vial IVP 06/05/20 18:41 30 mg Q6H PRN Administration Mild-Moderate Pain (1-5) Labetalol HCl 20 mg 05/28/20 01:37 05/29/20 03:39 Labetalol Hcl 100 Mg/20 Ml Vial SLOW IVP 20 mg Q4H PRN Administration SBP > 180 and HR >/= 70 Levetiracetam 500 mg 10/16/20 21:00 06/02/20 08:58 Levetiracetam 500 Mg Tab PO 500 mg BID VENKATESH Administration Lisinopril 40 mg 06/02/20 09:00 06/02/20 08:56 Lisinopril 20 Mg Tab PO 40 mg DAILY VENKATESH Administration Lorazepam 2 mg 05/28/20 16:27 06/02/20 04:17 Lorazepam 1 Mg Tab PO 2 mg Q4H PRN Administration Anxiety/Agitation Melatonin 3 mg 05/30/20 00:36 05/30/20 00:44 Melatonin 3 Mg Tab PO 3 mg HS PRN Administration Insomnia Metformin HCl 500 mg 06/02/20 09:00 06/02/20 08:56 Metformin 500 Mg Tab PO 500 mg DAILY VENKATESH Administration Nicotine 21 mg 06/01/20 09:00 06/02/20 08:53 Nicotine 21 Mg Patch TD 21 mg DAILY VENKATESH Administration Sodium Chloride 10 ml 05/27/20 21:00 06/02/20 08:59 Flush - Normal Saline 10 Ml Syringe IVF 10 ml Q12HR VENKATESH Administration - Exam General Appearance: awake alert Eye: PERRL ENT: normocephalic atraumatic Neck: supple Respiratory: CTAB Cardiovascular: RRR Gastrointestinal: soft Extremities: no cyanosis Skin: normal turgor Neurological: no new deficit Musculoskeletal: normal tone, no muscle wasting PSYCH: normal affect, normal behavior, A&O x 3 Results - Labs Result Diagrams: 05/31/20 03:12 05/31/20 03:12 Lab results: WBC 10.4 thou/uL (4.8-10.8) 05/31/20 03:12 Hgb 11.8 g/dL (14.0-18.0) L 05/31/20 03:12 Hct 34.8 % (42.0-52.0) L 05/31/20 03:12 MCV 97.3 fL (78.0-98.0) 05/31/20 03:12 Plt Count 406 thou/uL (130-400) H 05/31/20 03:12 Neutrophils % 55.6 % (42.0-75.0) 05/31/20 03:12 Sodium 139 mmol/L (136-145) 05/31/20 03:12 Potassium 4.1 mmol/L (3.5-5.1) 05/31/20 03:12 Chloride 107 mmol/L (98-107) 05/31/20 03:12 Carbon Dioxide 23 mmol/L (23-31) 05/31/20 03:12 BUN 13 mg/dL (8.4-25.7) 05/31/20 03:12 Creatinine 0.74 mg/dL (0.7-1.3) 05/31/20 03:12 Glucose 110 mg/dL (80-115) 05/31/20 03:12 Lactic Acid 1.5 mmol/L (0.5-2.2) 05/27/20 07:20 Calcium 8.7 mg/dL (7.8-10.44) 05/31/20 03:12 Total Bilirubin 0.7 mg/dL (0.2-1.2) 05/27/20 07:21 AST 32 U/L (5-34) 05/27/20 07:21 ALT 27 U/L (8-55) 05/27/20 07:21 Alkaline Phosphatase 74 U/L (40-110) 05/27/20 07:21 Ammonia 36 umol/L (18-72) 05/27/20 15:59 Creatine Kinase 955 U/L (30-200) H 05/28/20 04:46 Troponin I Less than 0.010 ng/mL (< 0.028) 05/27/20 15:58 Serum Total Protein 7.3 g/dL (5.8-8.1) 05/27/20 07:21 Albumin 4.2 g/dL (3.4-4.8) 05/27/20 07:21 Lipase 14 U/L (8-78) 05/27/20 07:21 Urine Ketones Negative mg/dL (Negative) 05/27/20 09:20 Urine Blood Negative (Negative) 05/27/20 09:20 Urine Nitrite Negative (Negative) 05/27/20 09:20 Ur Leukocyte Esterase Negative Zia/uL (Negative) 05/27/20 09:20 PN A/P (1) Acute CVA (cerebrovascular accident) Code(s): I63.9 - CEREBRAL INFARCTION, UNSPECIFIED Status: Acute (2) Bilateral arm weakness Code(s): R29.898 - OTH SYMPTOMS AND SIGNS INVOLVING THE MUSCULOSKELETAL SYSTEM Status: Acute (3) Bilateral leg weakness Code(s): R29.898 - OTH SYMPTOMS AND SIGNS INVOLVING THE MUSCULOSKELETAL SYSTEM Status: Acute (4) Diabetes Code(s): E11.9 - TYPE 2 DIABETES MELLITUS WITHOUT COMPLICATIONS Status: Acute (5) Hypertension Code(s): I10 - ESSENTIAL (PRIMARY) HYPERTENSION Status: Acute - Plan Daily Plan: PT/OT, speech therapy, DVT proph w/SCDs 64-year-old male who presented with acute onset confusion status post fall. No focal deficits were evident on initial exam. MRI brain consistent with acute infarction in the left temporal region. However, the patient developed weakness of both upper and lower extremity on 05/29/2020 with waxing and waning mental status. Urgent MRI of the cervical spine was done on05/29/2020 which showed retropharyngeal hematoma and cervical spine stenosis. Neurosurgery on board and did not feel the need for surgical intervention over the weekend. The patient's bilateral lower extremity weakness is almost resolved but he is still weak in the upper extremities and is unable to lift them above the bed with bilateral UE strength 2/5. Continue PT/OT. Awaiting inpatient rehab. MRI of the brain reviewed and was positive for infarction in the left temporal region. EEG reviewed and was negative for seizure activity. Continue Keppra 500 mg twice daily since patient is increased risk of seizures because of infarction in the left temporal region. Carotid Dopplers completed. Limited study with concern of carotid stenosis. Follow-up CT angiogram of head and neck negative for hemodynamically significant stenosis. Neurochecks every 2 hours. Continue home medications. Strict control of blood glucose and BP. DVT prophylaxis. Continue speech therapy Continue medical management per primary team. Plan discussed in detail with the nursing staff and the patient.
--- NOTE | 2020-06-02 15:20 | PDOC.FMACP ---
Advance Care Planning - Problem (1) Palliative care encounter Status: Acute Code(s): Z51.5 - ENCOUNTER FOR PALLIATIVE CARE (2) Acute CVA (cerebrovascular accident) Status: Acute Code(s): I63.9 - CEREBRAL INFARCTION, UNSPECIFIED (3) Closed head injury Status: Acute Code(s): S09.90XA - UNSPECIFIED INJURY OF HEAD, INITIAL ENCOUNTER (4) Syncope and collapse Status: Acute Code(s): R55 - SYNCOPE AND COLLAPSE (5) Traumatic edema of cervical spinal cord Status: Acute Code(s): S14.0XXA - CONCUSSION AND EDEMA OF CERVICAL SPINAL CORD, INIT ENCNTR - Note Participants: patient, family, palliative care Summary: Palliative Care Advanced Care Planning was discussed. The diagnosis, prognosis and goals of care were discussed. Appropriate forms and documentation to accomplish the goals of care were discussed. All questions were answered. Mr Trinh requested to complete a MPOA, this was done with assistance from [facility] Registrar. Original and copies provided to the patient, as well as copy placed on the chart for Medical Records. Also provided information in relation to Directive to Physicians. Patient confirmed currently to continue with full resuscitation and aggressive therapies. Please also refer to Palliative Care notes in note section. Time Spent (mins): 20
--- NOTE | 2020-06-02 17:29 | PDOC.HOSPP ---
- Subjective Encounter Date: 06/02/20 Encounter Time: 17:10 Subjective: f/u for cervical spinal stenosis with persistent UE weakness. Moving LE's ok but UE's remain weak. Awaiting approval for inpt rehab. - Objective Vital Signs & Weight: Vital Signs (12 hours) Temp Pulse Pulse Pulse BP BP BP 06/02/20 15:00 97.6 F 06/02/20 13:14 115 H 116 H 151/98 H 145/100 H 06/02/20 12:00 97.8 F 06/02/20 08:57 81 147/100 H 06/02/20 08:56 147/100 H 06/02/20 08:00 97.5 F L Pulse Ox 06/02/20 15:00 06/02/20 13:14 06/02/20 12:00 06/02/20 08:57 06/02/20 08:56 06/02/20 08:00 97 Weight Admit Weight 203 lb 6.4 oz Weight 203 lb 0.732 oz Most Recent Monitor Data Heart Rate from ECG 85 NIBP 157/92 NIBP BP-Mean 113 Respiration from ECG 21 SpO2 98 I&O: 06/01/20 06/02/20 06/03/20 06:59 06:59 06:59 Intake Total 3753.9 2844 585 Output Total 3130 8364 965 Balance 623.9 -1876 -380 Result Diagrams: 05/31/20 03:12 05/31/20 03:12 Additional Labs: Accuchecks 06/02/20 06/02/20 06/02/20 10:53 05:40 02:23 POC Glucose 123 H 100 126 H 06/01/20 06/01/20 06/01/20 20:16 17:53 11:49 POC Glucose 155 H 90 112 H Microbiology 05/27/20 15:59 Venous blood - Left Hand Blood Culture - Final Alpha-Strep, not S. pneumoniae 05/27/20 15:58 Venous blood - Right Hand Blood Culture - Preliminary NO GROWTH AT 48 HOURS Laboratory Tests 05/27/20 05/27/20 05/27/20 07:20 07:21 07:21 WBC 12.0 H Creatine Kinase 1672 H Vitamin B12 Folate TSH 3rd Generation Plasma Alcohol Less than 10 SARS-CoV-2 (PCR) 10/05/28/20 05/28/20 12:51 04:46 04:46 WBC 10.6 Creatine Kinase 955 H Vitamin B12 Folate TSH 3rd Generation Plasma Alcohol SARS-CoV-2 (PCR) Not Detected 05/29/20 05/29/20 04:28 04:28 WBC Creatine Kinase Vitamin B12 264 Folate 5.60 L TSH 3rd Generation 1.5377 Plasma Alcohol SARS-CoV-2 (PCR) EKG Reviewed by me: Yes (Tele - SR) Hospitalist ROS - Medication Medications: Active Medications Generic Name Dose Route Start Last Admin Trade Name Freq PRN Reason Stop Dose Admin Acetaminophen 650 mg 05/27/20 11:04 06/02/20 06:11 Acetaminophen 325 Mg Tab PO 650 mg Q4H PRN Administration Headache/Fever/Mild Pain (1-3) Amlodipine Besylate 5 mg 06/02/20 09:00 06/02/20 08:57 Amlodipine 5 Mg Tab PO 5 mg DAILY VENKATESH Administration Aspirin 81 mg 05/28/20 09:00 06/02/20 08:57 Aspirin 81 Mg Enteric Coated Tablet PO 81 mg DAILY VENKATESH Administration Bupropion HCl 150 mg 05/30/20 21:00 06/02/20 08:57 Bupropion 150 Mg Sr Tab PO 150 mg BID VENKATESH Administration Cyanocobalamin 1,000 mcg 05/29/20 09:00 06/02/20 08:55 Cyanocobalamin (Vitamin B-12) 1,000 Mcg Tab PO 1,000 mcg DAILY VENKATESH Administration Enoxaparin Sodium 40 mg 05/27/20 21:00 06/01/20 20:13 Enoxaparin Sodium 40 Mg/0.4 Ml Syringe SC 40 mg HS VENKATESH Administration Escitalopram Oxalate 20 mg 05/31/20 09:00 06/02/20 08:57 Escitalopram Oxalate 20 Mg Tablet PO 20 mg DAILY VENKATESH Administration Folic Acid 1 mg 05/29/20 09:00 06/02/20 08:57 Folic Acid 1 Mg Tab PO 1 mg DAILY VENKATESH Administration Sodium Chloride 1,000 mls @ 100 mls/hr 05/27/20 11:30 06/02/20 08:59 Normal Saline 0.9% IV 1,000 mls .Q10H VENKATESH Administration Dexmedetomidine HCl 400 mcg/ 100 mls @ 0 mls/hr 05/31/20 11:15 05/31/20 11:59 Sodium Chloride IVPB 100 mls INF VENKATESH Administration Protocol Titrate Insulin Human Lispro 0 units 05/27/20 11:04 06/01/20 20:32 Humalog 300 Units/3 Ml Vial SC 2 unit .MILD SLIDING SCALE PRN Administration Mild Correctional Scale Ketorolac Tromethamine 30 mg 05/31/20 18:40 06/02/20 11:51 Ketorolac Tromethamine 30 Mg/Ml Vial IVP 06/05/20 18:41 30 mg Q6H PRN Administration Mild-Moderate Pain (1-5) Labetalol HCl 20 mg 05/28/20 01:37 05/29/20 03:39 Labetalol Hcl 100 Mg/20 Ml Vial SLOW IVP 20 mg Q4H PRN Administration SBP > 180 and HR >/= 70 Levetiracetam 500 mg 05/29/20 21:00 06/02/20 08:58 Levetiracetam 500 Mg Tab PO 500 mg BID VENKATESH Administration Lisinopril 40 mg 06/02/20 09:00 06/02/20 08:56 Lisinopril 20 Mg Tab PO 40 mg DAILY VENKATESH Administration Lorazepam 2 mg 05/28/20 16:27 06/02/20 04:17 Lorazepam 1 Mg Tab PO 2 mg Q4H PRN Administration Anxiety/Agitation Melatonin 3 mg 05/30/20 00:36 05/30/20 00:44 Melatonin 3 Mg Tab PO 3 mg HS PRN Administration Insomnia Metformin HCl 500 mg 06/02/20 09:00 06/02/20 08:56 Metformin 500 Mg Tab PO 500 mg DAILY VENKATESH Administration Nicotine 21 mg 06/01/20 09:00 06/02/20 08:53 Nicotine 21 Mg Patch TD 21 mg DAILY VENKATESH Administration Sodium Chloride 10 ml 05/27/20 21:00 06/02/20 08:59 Flush - Normal Saline 10 Ml Syringe IVF 10 ml Q12HR VENKATESH Administration - Exam General Appearance: NAD, awake alert Eye: PERRL, anicteric sclera ENT: normocephalic atraumatic, no oropharyngeal lesions Neck: supple, symmetric, no JVD, no thyromegaly, no lymphadenopathy Heart: RRR, no gallops, no rubs, normal peripheral pulses Heart - other findings: S1, S2 Respiratory: CTAB, no wheezes, no rales, no ronchi, normal chest expansion, no tachypnea Gastrointestinal: soft, non-tender, non-distended, normal bowel sounds, no palpable masses Extremities: no cyanosis, no clubbing, no edema Skin: normal turgor, no lesions Neurological: cranial nerve grossly intact, no new deficit Neurological - other findings: UE's 08/18 Musculoskeletal: generalized weakness Psychiatric: normal affect, A&O x 3 Hosp A/P (1) Traumatic edema of cervical spinal cord Code(s): S14.0XXA - CONCUSSION AND EDEMA OF CERVICAL SPINAL CORD, INIT ENCNTR Status: Acute Plan: Continue supportive mgmt, plan for inpt rehab, PT/OT (2) Closed head injury Code(s): S09.90XA - UNSPECIFIED INJURY OF HEAD, INITIAL ENCOUNTER Status: Acute Plan: s/p fall, supportive mgmt (3) Syncope and collapse Code(s): R55 - SYNCOPE AND COLLAPSE Status: Acute (4) Acute CVA (cerebrovascular accident) Code(s): I63.9 - CEREBRAL INFARCTION, UNSPECIFIED Status: Acute - Plan plan discussed w/ family, PT/OT, social work therapist, out of bed/ambulate, DVT proph w/SCDs Stable currently Pain control as clinically indicated Toradol IV PRN PT/OT for mobilization Inpt Rehab approval pending Resume home meds Nicotine patch Saline lock IVF's
[2020-06-02] MEDS: Enoxaparin Sodium 40 MG/0.4 ML SYRINGE SC SCH (20:06)
[2020-06-02] MEDS: Atorvastatin Calcium 40 MG TAB PO SCH (20:06)
[2020-06-03] MEDS: Lorazepam 1 MG TAB PO PRN ×2 (02:19→23:31)
[2020-06-03] MEDS: Ketorolac Tromethamine 30 MG/ML VIAL IVP PRN (10:08)
[2020-06-03] MEDS: Folic Acid 1 MG TAB PO SCH (10:13)
[2020-06-03] MEDS: Acetaminophen 325 MG TAB PO PRN (10:13)
[2020-06-03] MEDS: levETIRAcetam 500 MG TAB PO SCH ×2 (10:16→21:25)
[2020-06-03] MEDS: Aspirin 81 mg Enteric Coated Tablet PO SCH (10:16)
[2020-06-03] MEDS: Lisinopril 20 MG TAB PO SCH (10:16)
[2020-06-03] MEDS: metFORMIN 500 MG TAB PO SCH (10:16)
[2020-06-03] MEDS: Amlodipine 5 MG TAB PO SCH (10:17)
[2020-06-03] MEDS: Escitalopram Oxalate 20 mg Tablet PO SCH (10:19)
[2020-06-03] MEDS: Cyanocobalamin (Vitamin B-12) 1,000 MCG TAB PO SCH (10:20)
[2020-06-03] MEDS: Bupropion 150 MG SR TAB PO SCH ×2 (10:20→21:25)
[2020-06-03] MEDS: Nicotine 21 MG PATCH TD SCH (10:21)
--- NOTE | 2020-06-03 14:26 | PDOC.NEUPN ---
- Subjective Encounter Date: 06/03/20 Subjective: Patient is alert and oriented . Weakness in the legs is almost resolved but still has weakness in the upper extremities but improved from yesterday. - Objective Vital Signs & Weight: Vital Signs (12 hours) Temp Pulse Pulse Pulse BP BP BP 06/03/20 10:17 80 149/116 H 06/03/20 10:16 149/116 H 06/03/20 09:41 114 H 113 H 159/110 H 147/96 H 06/03/20 07:58 97.1 F L 06/03/20 05:12 Pulse Ox 06/03/20 10:17 06/03/20 10:16 06/03/20 09:41 06/03/20 07:58 06/03/20 05:12 96 Weight Admit Weight 203 lb 6.4 oz Weight 202 lb 1.6 oz Most Recent Monitor Data Heart Rate from ECG 77 NIBP 114/83 NIBP BP-Mean 93 Respiration from ECG 23 SpO2 98 I&O: 06/02/20 06/03/20 06/04/20 06:59 06:59 06:59 Intake Total 2844 585 1326 Output Total 4720 2065 1551 [facility] -1876 -1480 -225 Result Diagrams: 05/31/20 03:12 05/31/20 03:12 Additional Labs: Accuchecks 06/03/20 06/02/20 06:41 20:02 POC Glucose 120 H 112 H Radiology Reviewed by me: Yes EKG Reviewed by me: Yes ROS - Review of Systems Constitutional: denies: fever, chills, sweats, weakness, malaise, other Eyes: denies: pain, vision change, conjunctivae inflammation, eyelid inflammation, redness, other ENT: denies: ear pain, ear discharge, nose pain, nose discharge, nose congestion, mouth pain, mouth swelling, throat pain, throat swelling, other Respiratory: denies: cough, dry, shortness of breath, hemoptysis, SOB with excertion, pleuritic pain, sputum, wheezing, other Genitourinary: denies: dysuria, frequency, incontinence, hematuria, retention, other Musculoskeletal: reports: neck pain Neurological: reports: weakness, numbness, incoordination. denies: change in speech, confusion, seizures, other - Medication Medications: Active Medications Generic Name Dose Route Start Last Admin Trade Name Freq PRN Reason Stop Dose Admin Acetaminophen 650 mg 05/27/20 11:04 06/03/20 10:13 Acetaminophen 325 Mg Tab PO 650 mg Q4H PRN Administration Headache/Fever/Mild Pain (1-3) Amlodipine Besylate 5 mg 06/02/20 09:00 06/03/20 10:17 Amlodipine 5 Mg Tab PO 5 mg DAILY VENKATESH Administration Aspirin 81 mg 05/28/20 09:00 06/03/20 10:16 Aspirin 81 Mg Enteric Coated Tablet PO 81 mg DAILY VENKATESH Administration Atorvastatin Calcium 40 mg 06/02/20 21:00 06/02/20 20:06 Atorvastatin Calcium 40 Mg Tab PO 40 mg HS VENKATESH Administration Bupropion HCl 150 mg 05/30/20 21:00 06/03/20 10:20 Bupropion 150 Mg Sr Tab PO 150 mg BID VENKATESH Administration Cyanocobalamin 1,000 mcg 05/29/20 09:00 06/03/20 10:20 Cyanocobalamin (Vitamin B-12) 1,000 Mcg Tab PO 1,000 mcg DAILY VENKATESH Administration Enoxaparin Sodium 40 mg 05/27/20 21:00 06/02/20 20:06 Enoxaparin Sodium 40 Mg/0.4 Ml Syringe SC 40 mg HS VENKATESH Administration Escitalopram Oxalate 20 mg 05/31/20 09:00 06/03/20 10:19 Escitalopram Oxalate 20 Mg Tablet PO 20 mg DAILY VENKATESH Administration Folic Acid 1 mg 05/29/20 09:00 06/03/20 10:13 Folic Acid 1 Mg Tab PO 1 mg DAILY VENKATESH Administration Dexmedetomidine HCl 400 mcg/ 100 mls @ 0 mls/hr 05/31/20 11:15 05/31/20 11:59 Sodium Chloride IVPB 100 mls INF VENKATESH Administration Protocol Titrate Insulin Human Lispro 0 units 05/27/20 11:04 06/01/20 20:32 Humalog 300 Units/3 Ml Vial SC 2 unit .MILD SLIDING SCALE PRN Administration Mild Correctional Scale Ketorolac Tromethamine 30 mg 05/31/20 18:40 06/03/20 10:08 Ketorolac Tromethamine 30 Mg/Ml Vial IVP 06/05/20 18:41 30 mg Q6H PRN Administration Mild-Moderate Pain (1-5) Labetalol HCl 20 mg 05/28/20 01:37 05/29/20 03:39 Labetalol Hcl 100 Mg/20 Ml Vial SLOW IVP 20 mg Q4H PRN Administration SBP > 180 and HR >/= 70 Levetiracetam 500 mg 05/29/20 21:00 06/03/20 10:16 Levetiracetam 500 Mg Tab PO 500 mg BID VENKATESH Administration Lisinopril 40 mg 06/02/20 09:00 06/03/20 10:16 Lisinopril 20 Mg Tab PO 40 mg DAILY VENKATESH Administration Lorazepam 2 mg 05/28/20 16:27 06/03/20 02:19 Lorazepam 1 Mg Tab PO 2 mg Q4H PRN Administration Anxiety/Agitation Melatonin 3 mg 05/30/20 00:36 05/30/20 00:44 Melatonin 3 Mg Tab PO 3 mg HS PRN Administration Insomnia Metformin HCl 500 mg 06/02/20 09:00 06/03/20 10:16 Metformin 500 Mg Tab PO 500 mg DAILY VENKATESH Administration Nicotine 21 mg 06/01/20 09:00 06/03/20 10:21 Nicotine 21 Mg Patch TD Not Given DAILY VENKATESH Sodium Chloride 10 ml 05/27/20 21:00 06/03/20 10:21 Flush - Normal Saline 10 Ml Syringe IVF 10 ml Q12HR VENKATESH Administration Results - Labs Result Diagrams: 05/31/20 03:12 05/31/20 03:12 Lab results: WBC 10.4 thou/uL (4.8-10.8) 05/31/20 03:12 Hgb 11.8 g/dL (14.0-18.0) L 05/31/20 03:12 Hct 34.8 % (42.0-52.0) L 05/31/20 03:12 MCV 97.3 fL (78.0-98.0) 05/31/20 03:12 Plt Count 406 thou/uL (130-400) H 05/31/20 03:12 Neutrophils % 55.6 % (42.0-75.0) 05/31/20 03:12 Sodium 139 mmol/L (136-145) 05/31/20 03:12 Potassium 4.1 mmol/L (3.5-5.1) 05/31/20 03:12 Chloride 107 mmol/L (98-107) 05/31/20 03:12 Carbon Dioxide 23 mmol/L (23-31) 05/31/20 03:12 BUN 13 mg/dL (8.4-25.7) 05/31/20 03:12 Creatinine 0.74 mg/dL (0.7-1.3) 05/31/20 03:12 Glucose 110 mg/dL (80-115) 05/31/20 03:12 Lactic Acid 1.5 mmol/L (0.5-2.2) 05/27/20 07:20 Calcium 8.7 mg/dL (7.8-10.44) 05/31/20 03:12 Total Bilirubin 0.7 mg/dL (0.2-1.2) 05/27/20 07:21 AST 32 U/L (5-34) 05/27/20 07:21 ALT 27 U/L (8-55) 05/27/20 07:21 Alkaline Phosphatase 74 U/L (40-110) 05/27/20 07:21 Ammonia 36 umol/L (18-72) 05/27/20 15:59 Creatine Kinase 955 U/L (30-200) H 05/28/20 04:46 Troponin I Less than 0.010 ng/mL (< 0.028) 05/27/20 15:58 Serum Total Protein 7.3 g/dL (5.8-8.1) 05/27/20 07:21 Albumin 4.2 g/dL (3.4-4.8) 05/27/20 07:21 Lipase 14 U/L (8-78) 05/27/20 07:21 Urine Ketones Negative mg/dL (Negative) 05/27/20 09:20 Urine Blood Negative (Negative) 05/27/20 09:20 Urine Nitrite Negative (Negative) 05/27/20 09:20 Ur Leukocyte Esterase Negative Zia/uL (Negative) 05/27/20 09:20 PN A/P (1) Acute CVA (cerebrovascular accident) Code(s): I63.9 - CEREBRAL INFARCTION, UNSPECIFIED Status: Acute (2) Bilateral arm weakness Code(s): R29.898 - OTH SYMPTOMS AND SIGNS INVOLVING THE MUSCULOSKELETAL SYSTEM Status: Acute (3) Bilateral leg weakness Code(s): R29.898 - OTH SYMPTOMS AND SIGNS INVOLVING THE MUSCULOSKELETAL SYSTEM Status: Acute (4) Diabetes Code(s): E11.9 - TYPE 2 DIABETES MELLITUS WITHOUT COMPLICATIONS Status: Acute (5) Hypertension Code(s): I10 - ESSENTIAL (PRIMARY) HYPERTENSION Status: Acute - Plan Daily Plan: plan discussed w/ family, PT/OT, speech therapy, DVT proph w/SCDs 64-year-old male who presented with acute onset confusion status post fall. No focal deficits were evident on initial exam. MRI brain consistent with acute infarction in the left temporal region. However, the patient developed weakness of both upper and lower extremity on 05/29/2020 with waxing and waning mental status. Urgent MRI of the cervical spine was done on05/29/2020 which showed retropharyngeal hematoma and cervical spine stenosis. Neurosurgery on board and did not feel the need for surgical intervention over the weekend. The patient's bilateral lower extremity weakness is almost resolved but he is still weak in the upper extremities a but today he is able to lift them above the bed. Continue PT/OT. Awaiting inpatient rehab. MRI of the brain reviewed and was positive for infarction in the left temporal region. EEG reviewed and was negative for seizure activity. Continue Keppra 500 mg twice daily since patient is increased risk of seizures because of infarction in the left temporal region. Carotid Dopplers completed. Limited study with concern of carotid stenosis. Follow-up CT angiogram of head and neck negative for hemodynamically significant stenosis. Neurochecks every 2 hours. Continue home medications. Strict control of blood glucose and BP. DVT prophylaxis. Continue speech therapy Continue medical management per primary team. Plan discussed in detail with the nursing staff ,patient, patient's brother and the primary attending Dr. Parikh.
--- NOTE | 2020-06-03 15:07 | PDOC.HOSPP ---
- Subjective Encounter Date: 06/03/20 Encounter Time: 15:00 Subjective: f/u for severe cervical spinal stenosis s/p fall with CHI and BUE weakness awaiting inpt rehab approval. States moving his upper extremities more today. No other complaints. - Objective Vital Signs & Weight: Vital Signs (12 hours) Temp Pulse Pulse Pulse BP BP BP 06/03/20 10:17 80 149/116 H 06/03/20 10:16 149/116 H 06/03/20 09:41 114 H 113 H 159/110 H 147/96 H 06/03/20 07:58 97.1 F L 06/03/20 05:12 Pulse Ox 06/03/20 10:17 06/03/20 10:16 06/03/20 09:41 06/03/20 07:58 06/03/20 05:12 96 Weight Admit Weight 203 lb 6.4 oz Weight 202 lb 1.6 oz Most Recent Monitor Data Heart Rate from ECG 77 NIBP 114/83 NIBP BP-Mean 93 Respiration from ECG 23 SpO2 98 I&O: 06/02/20 06/03/20 06/04/20 06:59 06:59 06:59 Intake Total 2844 585 1326 Output Total [address] [facility] -5130 -8992 -199 Result Diagrams: 05/31/20 03:12 05/31/20 03:12 Additional Labs: Accuchecks 06/03/20 06/02/20 06:41 20:02 POC Glucose 120 H 112 H Microbiology 05/27/20 15:59 Venous blood - Left Hand Blood Culture - Final Alpha-Strep, not S. pneumoniae 05/27/20 15:58 Venous blood - Right Hand Blood Culture - Preliminary NO GROWTH AT 48 HOURS Laboratory Tests 05/27/20 05/27/20 05/27/20 07:20 07:21 07:21 WBC 12.0 H Creatine Kinase 1672 H Vitamin B12 Folate TSH 3rd Generation Plasma Alcohol Less than 10 SARS-CoV-2 (PCR) 05/27/20 05/28/20 05/28/20 12:51 04:46 04:46 WBC 10.6 Creatine Kinase 955 H Vitamin B12 Folate TSH 3rd Generation Plasma Alcohol SARS-CoV-2 (PCR) Not Detected 05/29/20 05/29/20 04:28 04:28 WBC Creatine Kinase Vitamin B12 264 Folate 5.60 L TSH 3rd Generation 1.5377 Plasma Alcohol SARS-CoV-2 (PCR) EKG Reviewed by me: Yes (Tele - SR) Hospitalist ROS - Medication Medications: Active Medications Generic Name Dose Route Start Last Admin Trade Name Freq PRN Reason Stop Dose Admin Acetaminophen 650 mg 05/27/20 11:04 06/03/20 10:13 Acetaminophen 325 Mg Tab PO 650 mg Q4H PRN Administration Headache/Fever/Mild Pain (1-3) Amlodipine Besylate 5 mg 06/02/20 09:00 06/03/20 10:17 Amlodipine 5 Mg Tab PO 5 mg DAILY VENKATESH Administration Aspirin 81 mg 05/28/20 09:00 06/03/20 10:16 Aspirin 81 Mg Enteric Coated Tablet PO 81 mg DAILY VENKATESH Administration Atorvastatin Calcium 40 mg 06/02/20 21:00 06/02/20 20:06 Atorvastatin Calcium 40 Mg Tab PO 40 mg HS VENKATESH Administration Bupropion HCl 150 mg 05/30/20 21:00 06/03/20 10:20 Bupropion 150 Mg Sr Tab PO 150 mg BID VENKATESH Administration Cyanocobalamin 1,000 mcg 05/29/20 09:00 06/03/20 10:20 Cyanocobalamin (Vitamin B-12) 1,000 Mcg Tab PO 1,000 mcg DAILY VENKATESH Administration Enoxaparin Sodium 40 mg 05/27/20 21:00 06/02/20 20:06 Enoxaparin Sodium 40 Mg/0.4 Ml Syringe SC 40 mg HS VENKATESH Administration Escitalopram Oxalate 20 mg 05/31/20 09:00 06/03/20 10:19 Escitalopram Oxalate 20 Mg Tablet PO 20 mg DAILY VENKATESH Administration Folic Acid 1 mg 05/29/20 09:00 06/03/20 10:13 Folic Acid 1 Mg Tab PO 1 mg DAILY VENKATESH Administration Dexmedetomidine HCl 400 mcg/ 100 mls @ 0 mls/hr 05/31/20 11:15 05/31/20 11:59 Sodium Chloride IVPB 100 mls INF VENKATESH Administration Protocol Titrate Insulin Human Lispro 0 units 05/27/20 11:04 06/01/20 20:32 Humalog 300 Units/3 Ml Vial SC 2 unit .MILD SLIDING SCALE PRN Administration Mild Correctional Scale Ketorolac Tromethamine 30 mg 05/31/20 18:40 06/03/20 10:08 Ketorolac Tromethamine 30 Mg/Ml Vial IVP 06/05/20 18:41 30 mg Q6H PRN Administration Mild-Moderate Pain (1-5) Labetalol HCl 20 mg 05/28/20 01:37 05/29/20 03:39 Labetalol Hcl 100 Mg/20 Ml Vial SLOW IVP 20 mg Q4H PRN Administration SBP > 180 and HR >/= 70 Levetiracetam 500 mg 05/29/20 21:00 06/03/20 10:16 Levetiracetam 500 Mg Tab PO 500 mg BID VENKATESH Administration Lisinopril 40 mg 06/02/20 09:00 06/03/20 10:16 Lisinopril 20 Mg Tab PO 40 mg DAILY VENKATESH Administration Lorazepam 2 mg 05/28/20 16:27 06/03/20 02:19 Lorazepam 1 Mg Tab PO 2 mg Q4H PRN Administration Anxiety/Agitation Melatonin 3 mg 05/30/20 00:36 05/30/20 00:44 Melatonin 3 Mg Tab PO 3 mg HS PRN Administration Insomnia Metformin HCl 500 mg 06/02/20 09:00 06/03/20 10:16 Metformin 500 Mg Tab PO 500 mg DAILY VENKATESH Administration Nicotine 21 mg 06/01/20 09:00 06/03/20 10:21 Nicotine 21 Mg Patch TD Not Given DAILY VENKATESH Sodium Chloride 10 ml 05/27/20 21:00 06/03/20 10:21 Flush - Normal Saline 10 Ml Syringe IVF 10 ml Q12HR VENKATESH Administration - Exam General Appearance: NAD, awake alert Eye: PERRL, anicteric sclera ENT: normocephalic atraumatic, no oropharyngeal lesions Neck: supple, symmetric, no JVD, no thyromegaly, no lymphadenopathy Heart: RRR, no murmur, no gallops, no rubs, normal peripheral pulses Heart - other findings: S1, S2 Respiratory: CTAB, no wheezes, no rales, no ronchi, normal chest expansion Gastrointestinal: soft, non-tender, non-distended, normal bowel sounds, no palpable masses Extremities: no cyanosis, no clubbing, no edema Skin: normal turgor, no lesions Neurological: cranial nerve grossly intact Neurological - other findings: BUE weakness Musculoskeletal: normal tone, generalized weakness Psychiatric: normal affect, A&O x 3 Hosp A/P (1) Traumatic edema of cervical spinal cord Code(s): S14.0XXA - CONCUSSION AND EDEMA OF CERVICAL SPINAL CORD, INIT ENCNTR Status: Acute Plan: Continue supportive mgmt (2) Closed head injury Code(s): S09.90XA - UNSPECIFIED INJURY OF HEAD, INITIAL ENCOUNTER Status: Acute Plan: Continue routine care, fall risk precautions (3) Syncope and collapse Code(s): R55 - SYNCOPE AND COLLAPSE Status: Acute (4) Acute CVA (cerebrovascular accident) Code(s): I63.9 - CEREBRAL INFARCTION, UNSPECIFIED Status: Acute Plan: Continue ASA/Lipitor, PT/OT - Plan plan discussed w/ family, PT/OT, social services manager, out of bed/ambulate, DVT proph w/SCDs Stable currently Pain control as clinically indicated Toradol IV PRN PT/OT for mobilization Inpt Rehab approval pending Resume home meds Nicotine patch Saline lock IVF's
--- NOTE | 2020-06-03 16:05 | PRG ---
DATE OF SERVICE: 06/03/2020 SUBJECTIVE: Mr. Trinh is doing well. He is happy because he has his snuff. He still has extreme weakness of his upper extremities and lower extremities, upper extremities are worse. OBJECTIVE: VITAL SIGNS: Heart rate is 80, blood pressure 140/83, respiratory rate is 13. LUNGS: Clear. HEART: Regular rhythm. ABDOMEN: Soft. He is currently being evaluated for possible transfer to [facility]. He has had no seizure activity. We will continue to follow. Job ID: [id number]
[2020-06-03 16:56] LABS: SARS-CoV-2 MS2 Positive; SARS-CoV-2 N Gene Negative; SARS-CoV-2 S Gene Negative; SARS-CoV-2 by NAA Not Detected (NotDetected); SARS-CoV-2 orf1ab Negative
[2020-06-03] MEDS ORDERED: Magnesium Citrate 300 ML BOT PO SCH (20:30)
[2020-06-03] MEDS: Atorvastatin Calcium 40 MG TAB PO SCH (21:25)
[2020-06-03] MEDS: Docusate 100 MG CAP PO SCH (21:25)
[2020-06-03] MEDS: Enoxaparin Sodium 40 MG/0.4 ML SYRINGE SC SCH (21:26)
[2020-06-03] MEDS: Melatonin 3 MG TAB PO PRN (23:37)
[2020-06-04] MEDS: Ketorolac Tromethamine 30 MG/ML VIAL IVP PRN ×2 (01:55→19:20)
[2020-06-04] MEDS: Lisinopril 20 MG TAB PO SCH (09:41)
[2020-06-04] MEDS: levETIRAcetam 500 MG TAB PO SCH ×2 (09:42→21:44)
[2020-06-04] MEDS: Aspirin 81 mg Enteric Coated Tablet PO SCH (09:42)
[2020-06-04] MEDS: Cyanocobalamin (Vitamin B-12) 1,000 MCG TAB PO SCH (09:42)
[2020-06-04] MEDS: Escitalopram Oxalate 20 mg Tablet PO SCH (09:43)
[2020-06-04] MEDS: metFORMIN 500 MG TAB PO SCH (09:43)
[2020-06-04] MEDS: Bupropion 150 MG SR TAB PO SCH ×2 (09:43→21:44)
[2020-06-04] MEDS: Docusate 100 MG CAP PO SCH ×2 (09:43→21:44)
[2020-06-04] MEDS: Folic Acid 1 MG TAB PO SCH (09:43)
[2020-06-04] MEDS: Amlodipine 5 MG TAB PO SCH (09:44)
[2020-06-04] MEDS: Nicotine 21 MG PATCH TD SCH (09:44)
--- NOTE | 2020-06-04 12:57 | PDOC.NEUPN ---
- Subjective Encounter Date: 06/04/20 Subjective: He feels much better today. He was able to lift both his arms above the bed for for a short period of time which is a marked improvement. - Objective Vital Signs & Weight: Vital Signs (12 hours) Temp Pulse BP Pulse Ox 06/04/20 09:44 98 127/93 H 06/04/20 09:41 127/93 H 06/04/20 07:16 98 06/04/20 04:40 97.6 F Weight Admit Weight 203 lb 6.4 oz Weight 202 lb 13.204 oz Most Recent Monitor Data Heart Rate from ECG 86 NIBP 124/87 NIBP BP-Mean 99 Respiration from ECG 18 SpO2 100 I&O: 06/03/20 06/04/20 06/05/20 06:59 06:59 06:59 Intake Total 585 1566 580 Output Total 2065 1551 600 Balance -1480 Result Diagrams: 05/31/20 03:12 05/31/20 03:12 Additional Labs: Accuchecks 06/04/20 06/03/20 06/03/20 05:43 20:12 18:54 POC Glucose 111 H 131 H 95 Radiology Reviewed by me: Yes EKG Reviewed by me: Yes ROS - Review of Systems Constitutional: denies: fever, chills, sweats, weakness, malaise, other Eyes: denies: pain, vision change, conjunctivae inflammation, eyelid inflammation, redness, other ENT: denies: ear pain, ear discharge, nose pain, nose discharge, nose congestion, mouth pain, mouth swelling, throat pain, throat swelling, other Respiratory: denies: cough, dry, shortness of breath, hemoptysis, SOB with excertion, pleuritic pain, sputum, wheezing, other Gastrointestinal: denies: nausea, vomiting, abdominal pain, diarrhea, constipation, melena, hematochezia, other Genitourinary: denies: dysuria, frequency, incontinence, hematuria, retention, other Musculoskeletal: denies: neck pain, shoulder pain, arm pain, back pain, hand pain, leg pain, foot pain, other Skin: denies: rash, lesions, josé miguel, bruising, other Neurological: reports: weakness, numbness. denies: incoordination, change in speech, confusion, seizures, other - Medication Medications: Active Medications Generic Name Dose Route Start Last Admin Trade Name Leninq PRN Reason Stop Dose Admin Acetaminophen 650 mg 05/27/20 11:04 06/03/20 10:13 Acetaminophen 325 Mg Tab PO 650 mg Q4H PRN Administration Headache/Fever/Mild Pain (1-3) Amlodipine Besylate 5 mg 06/02/20 09:00 06/04/20 09:44 Amlodipine 5 Mg Tab PO 5 mg DAILY VENKATESH Administration Aspirin 81 mg 05/28/20 09:00 06/04/20 09:42 Aspirin 81 Mg Enteric Coated Tablet PO 81 mg DAILY VENKATESH Administration Atorvastatin Calcium 40 mg 06/02/20 21:00 06/03/20 21:25 Atorvastatin Calcium 40 Mg Tab PO 40 mg HS VENKATESH Administration Bupropion HCl 150 mg 05/30/20 21:00 06/04/20 09:43 Bupropion 150 Mg Sr Tab PO 150 mg BID VENKATESH Administration Cyanocobalamin 1,000 mcg 05/29/20 09:00 06/04/20 09:42 Cyanocobalamin (Vitamin B-12) 1,000 Mcg Tab PO 1,000 mcg DAILY VENKATESH Administration Docusate Sodium 100 mg 06/03/20 21:00 06/04/20 09:43 Docusate 100 Mg Cap PO 100 mg BID VENKATESH Administration Enoxaparin Sodium 40 mg 05/27/20 21:00 06/03/20 21:26 Enoxaparin Sodium 40 Mg/0.4 Ml Syringe SC 40 mg HS VENKATESH Administration Escitalopram Oxalate 20 mg 05/31/20 09:00 06/04/20 09:43 Escitalopram Oxalate 20 Mg Tablet PO 20 mg DAILY VENKATESH Administration Folic Acid 1 mg 05/29/20 09:00 06/04/20 09:43 Folic Acid 1 Mg Tab PO 1 mg DAILY [facility] Administration Dexmedetomidine HCl 400 mcg/ 100 mls @ 0 mls/hr 05/31/20 11:15 05/31/20 11:59 Sodium Chloride IVPB 100 mls INF VENKATESH Administration Protocol Titrate Insulin Human Lispro 0 units 05/27/20 11:04 06/01/20 20:32 Humalog 300 Units/3 Ml Vial SC 2 unit .MILD SLIDING SCALE PRN Administration Mild Correctional Scale Ketorolac Tromethamine 30 mg 05/31/20 18:40 06/04/20 01:55 Ketorolac Tromethamine 30 Mg/Ml Vial IVP 06/05/20 18:41 30 mg Q6H PRN Administration Mild-Moderate Pain (1-5) Labetalol HCl 20 mg 05/28/20 01:37 05/29/20 03:39 Labetalol Hcl 100 Mg/20 Ml Vial SLOW IVP 20 mg Q4H PRN Administration SBP > 180 and HR >/= 70 Levetiracetam 500 mg 05/29/20 21:00 06/04/20 09:42 Levetiracetam 500 Mg Tab PO 500 mg BID VENKATESH Administration Lisinopril 40 mg 06/02/20 09:00 06/04/20 09:41 Lisinopril 20 Mg Tab PO 40 mg DAILY VENKATESH Administration Lorazepam 2 mg 05/28/20 16:27 06/03/20 23:31 Lorazepam 1 Mg Tab PO 2 mg Q4H PRN Administration Anxiety/Agitation Melatonin 3 mg 05/30/20 00:36 06/03/20 23:37 Melatonin 3 Mg Tab PO 3 mg HS PRN Administration Insomnia Metformin HCl 500 mg 06/02/20 09:00 06/04/20 09:43 Metformin 500 Mg Tab PO 500 mg DAILY VENKATESH Administration Nicotine 21 mg 06/01/20 09:00 06/04/20 09:44 Nicotine 21 Mg Patch TD Not Given DAILY VENKATESH Sodium Chloride 10 ml 05/27/20 21:00 06/04/20 09:45 Flush - Normal Saline 10 Ml Syringe IVF 10 ml Q12HR VENKATESH Administration - Exam General Appearance: awake alert Eye: PERRL ENT: normocephalic atraumatic Neck: supple Respiratory: CTAB Cardiovascular: RRR Gastrointestinal: soft Extremities: no cyanosis Skin: normal turgor Results - Labs Result Diagrams: 05/31/20 03:12 05/31/20 03:12 Lab results: WBC 10.4 thou/uL (4.8-10.8) 05/31/20 03:12 Hgb 11.8 g/dL (14.0-18.0) L 05/31/20 03:12 Hct 34.8 % (42.0-52.0) L 05/31/20 03:12 MCV 97.3 fL (78.0-98.0) 05/31/20 03:12 Plt Count 406 thou/uL (130-400) H 05/31/20 03:12 Neutrophils % 55.6 % (42.0-75.0) 05/31/20 03:12 Sodium 139 mmol/L (136-145) 05/31/20 03:12 Potassium 4.1 mmol/L (3.5-5.1) 05/31/20 03:12 Chloride 107 mmol/L (98-107) 05/31/20 03:12 Carbon Dioxide 23 mmol/L (23-31) 05/31/20 03:12 BUN 13 mg/dL (8.4-25.7) 05/31/20 03:12 Creatinine 0.74 mg/dL (0.7-1.3) 05/31/20 03:12 Glucose 110 mg/dL (80-115) 05/31/20 03:12 Lactic Acid 1.5 mmol/L (0.5-2.2) 05/27/20 07:20 Calcium 8.7 mg/dL (7.8-10.44) 05/31/20 03:12 Total Bilirubin 0.7 mg/dL (0.2-1.2) 05/27/20 07:21 AST 32 U/L (5-34) 05/27/20 07:21 ALT 27 U/L (8-55) 05/27/20 07:21 Alkaline Phosphatase 74 U/L (40-110) 05/27/20 07:21 Ammonia 36 umol/L (18-72) 05/27/20 15:59 Creatine Kinase 955 U/L (30-200) H 05/28/20 04:46 Troponin I Less than 0.010 ng/mL (< 0.028) 05/27/20 15:58 Serum Total Protein 7.3 g/dL (5.8-8.1) 05/27/20 07:21 Albumin 4.2 g/dL (3.4-4.8) 05/27/20 07:21 Lipase 14 U/L (8-78) 05/27/20 07:21 Urine Ketones Negative mg/dL (Negative) 05/27/20 09:20 Urine Blood Negative (Negative) 05/27/20 09:20 Urine Nitrite Negative (Negative) 05/27/20 09:20 Ur Leukocyte Esterase Negative Zia/uL (Negative) 05/27/20 09:20 - Radiology Interpretation MRI - head Status: image reviewed by me, report reviewed by me Additional Comment: MRI on initial presentation showed acute infarction in the left temporal region PN A/P (1) Acute CVA (cerebrovascular accident) Code(s): I63.9 - CEREBRAL INFARCTION, UNSPECIFIED Status: Acute (2) Bilateral arm weakness Code(s): R29.898 - OTH SYMPTOMS AND SIGNS INVOLVING THE MUSCULOSKELETAL SYSTEM Status: Acute (3) Bilateral leg weakness Code(s): R29.898 - OTH SYMPTOMS AND SIGNS INVOLVING THE MUSCULOSKELETAL SYSTEM Status: Acute (4) Diabetes Code(s): E11.9 - TYPE 2 DIABETES MELLITUS WITHOUT COMPLICATIONS Status: Acute (5) Hypertension Code(s): I10 - ESSENTIAL (PRIMARY) HYPERTENSION Status: Acute - Plan Daily Plan: PT/OT, speech therapy, DVT proph w/SCDs 64-year-old male who presented with acute onset confusion status post fall. No focal deficits were evident on initial exam. MRI brain consistent with acute infarction in the left temporal region. However, the patient developed weakness of both upper and lower extremity on 05/29/2020 with waxing and waning mental status. Urgent MRI of the cervical spine was done on05/29/2020 which showed retropharyngeal hematoma and cervical spine stenosis. Neurosurgery on board and did not feel the need for surgical intervention over the weekend. The patient's bilateral lower extremity weakness is almost resolved but he is still weak in the upper extremities . Today he was able to raise both arms above the bed for less than a minute which is marked improvement. Continue PT/OT. Awaiting inpatient rehab. MRI of the brain reviewed and was positive for infarction in the left temporal region. EEG reviewed and was negative for seizure activity. Continue Keppra 500 mg twice daily since patient is increased risk of seizures because of infarction in the left temporal region. Carotid Dopplers completed. Limited study with concern of carotid stenosis. Follow-up CT angiogram of head and neck negative for hemodynamically significant stenosis. Neurochecks every 2 hours. Continue home medications. Strict control of blood glucose and BP. DVT prophylaxis. Continue speech therapy Continue medical management per primary team. Plan discussed in detail with the nursing staff ,patient and the patient's brother
--- NOTE | 2020-06-04 15:09 | PDOC.HOSPP ---
- Subjective Encounter Date: 06/04/20 Encounter Time: 14:50 Subjective: f/u for BUE weakness in context of severe cervical spinal stenosis/retropharyngeal hematoma s/p fall with [facility]. Moving BUE's some while in bed. - Objective Vital Signs & Weight: Vital Signs (12 hours) Temp Pulse BP Pulse Ox 06/04/20 09:44 98 127/93 H 06/04/20 09:41 127/93 H 06/04/20 07:16 98 06/04/20 04:40 97.6 F Weight Admit Weight 203 lb 6.4 oz Weight 202 lb 13.204 oz Most Recent Monitor Data Heart Rate from ECG 86 NIBP 124/87 NIBP BP-Mean 99 Respiration from ECG 18 SpO2 100 I&O: 06/03/20 06/04/20 06/05/20 06:59 06:59 06:59 Intake Total 585 1566 580 Output Total 2065 1551 600 Balance -1480 Result Diagrams: 05/31/20 03:12 05/31/20 03:12 Additional Labs: Accuchecks 06/04/20 06/03/20 06/03/20 05:43 20:12 18:54 POC Glucose 111 H 131 H 95 Microbiology 05/27/20 15:59 Venous blood - Left Hand Blood Culture - Final Alpha-Strep, not S. pneumoniae 05/27/20 15:58 Venous blood - Right Hand Blood Culture - Preliminary NO GROWTH AT 48 HOURS Laboratory Tests 05/27/20 05/27/20 05/27/20 07:20 07:21 07:21 WBC 12.0 H Creatine Kinase 1672 H Vitamin B12 Folate TSH 3rd Generation Plasma Alcohol Less than 10 SARS-CoV-2 (PCR) 05/27/20 05/28/20 05/28/20 12:51 04:46 04:46 WBC 10.6 Creatine Kinase 955 H Vitamin B12 Folate TSH 3rd Generation Plasma Alcohol SARS-CoV-2 (PCR) Not Detected 05/29/20 05/29/20 04:28 04:28 WBC Creatine Kinase Vitamin B12 264 Folate 5.60 L TSH 3rd Generation 1.5377 Plasma Alcohol SARS-CoV-2 (PCR) EKG Reviewed by me: Yes (Tele - SR) Hospitalist ROS - Medication Medications: Active Medications Generic Name Dose Route Start Last Admin Trade Name Freq PRN Reason Stop Dose Admin Acetaminophen 650 mg 10/14/20 11:04 06/03/20 10:13 Acetaminophen 325 Mg Tab PO 650 mg Q4H PRN Administration Headache/Fever/Mild Pain (1-3) Amlodipine Besylate 5 mg 06/02/20 09:00 06/04/20 09:44 Amlodipine 5 Mg Tab PO 5 mg DAILY VENKATESH Administration Aspirin 81 mg 05/28/20 09:00 06/04/20 09:42 Aspirin 81 Mg Enteric Coated Tablet PO 81 mg DAILY VENKATESH Administration Atorvastatin Calcium 40 mg 06/02/20 21:00 06/03/20 21:25 Atorvastatin Calcium 40 Mg Tab PO 40 mg HS VENKATESH Administration Bupropion HCl 150 mg 05/30/20 21:00 06/04/20 09:43 Bupropion 150 Mg Sr Tab PO 150 mg BID VENKATESH Administration Cyanocobalamin 1,000 mcg 05/29/20 09:00 06/04/20 09:42 Cyanocobalamin (Vitamin B-12) 1,000 Mcg Tab PO 1,000 mcg DAILY VENKATESH Administration Docusate Sodium 100 mg 06/03/20 21:00 06/04/20 09:43 Docusate 100 Mg Cap PO 100 mg BID VENKATESH Administration Enoxaparin Sodium 40 mg 05/27/20 21:00 06/03/20 21:26 Enoxaparin Sodium 40 Mg/0.4 Ml Syringe SC 40 mg HS VENKATESH Administration Escitalopram Oxalate 20 mg 05/31/20 09:00 06/04/20 09:43 Escitalopram Oxalate 20 Mg Tablet PO 20 mg DAILY VENKATESH Administration Folic Acid 1 mg 05/29/20 09:00 06/04/20 09:43 Folic Acid 1 Mg Tab PO 1 mg DAILY VENKATESH Administration Dexmedetomidine HCl 400 mcg/ 100 mls @ 0 mls/hr 05/31/20 11:15 05/31/20 11:59 Sodium Chloride IVPB 100 mls INF VENKATESH Administration Protocol Titrate Insulin Human Lispro 0 units 05/27/20 11:04 06/01/20 20:32 Humalog 300 Units/3 Ml Vial SC 2 unit .MILD SLIDING SCALE PRN Administration Mild Correctional Scale Ketorolac Tromethamine 30 mg 05/31/20 18:40 06/04/20 01:55 Ketorolac Tromethamine 30 Mg/Ml Vial IVP 06/05/20 18:41 30 mg Q6H PRN Administration Mild-Moderate Pain (1-5) Labetalol HCl 20 mg 05/28/20 01:37 05/29/20 03:39 Labetalol Hcl 100 Mg/20 Ml Vial SLOW IVP 20 mg Q4H PRN Administration SBP > 180 and HR >/= 70 Levetiracetam 500 mg 05/29/20 21:00 06/04/20 09:42 Levetiracetam 500 Mg Tab PO 500 mg BID VENKATESH Administration Lisinopril 40 mg 06/02/20 09:00 06/04/20 09:41 Lisinopril 20 Mg Tab PO 40 mg DAILY VENKATESH Administration Lorazepam 2 mg 05/28/20 16:27 06/03/20 23:31 Lorazepam 1 Mg Tab PO 2 mg Q4H PRN Administration Anxiety/Agitation Melatonin 3 mg 05/30/20 00:36 06/03/20 23:37 Melatonin 3 Mg Tab PO 3 mg HS PRN Administration Insomnia Metformin HCl 500 mg 06/02/20 09:00 06/04/20 09:43 Metformin 500 Mg Tab PO 500 mg DAILY VENKATESH Administration Nicotine 21 mg 06/01/20 09:00 06/04/20 09:44 Nicotine 21 Mg Patch TD Not Given DAILY VENKATESH Sodium Chloride 10 ml 05/27/20 21:00 06/04/20 09:45 Flush - Normal Saline 10 Ml Syringe IVF 10 ml Q12HR VENKATESH Administration - Exam General Appearance: NAD, awake alert Eye: PERRL, anicteric sclera ENT: normocephalic atraumatic, no oropharyngeal lesions Neck: supple, symmetric, no JVD, no thyromegaly, no lymphadenopathy Heart: RRR, no murmur, no gallops, no rubs, normal peripheral pulses Heart - other findings: S1, S2 Respiratory: CTAB, no wheezes, no rales, no ronchi, normal chest expansion Gastrointestinal: soft, non-tender, non-distended, normal bowel sounds, no palpable masses Extremities: no cyanosis, no clubbing Neurological: cranial nerve grossly intact, no new deficit Neurological - other findings: minimal movement of BUE's off bed, 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 Musculoskeletal: generalized weakness Psychiatric: normal affect, A&O x 3 Hosp A/P (1) Traumatic edema of cervical spinal cord Code(s): S14.0XXA - CONCUSSION AND EDEMA OF CERVICAL SPINAL CORD, INIT ENCNTR Status: Acute Plan: Continue supportive mgmt, plan for outpt cervical decompression in the near future, pain control, C-collar when OOB (2) Closed head injury Code(s): S09.90XA - UNSPECIFIED INJURY OF HEAD, INITIAL ENCOUNTER Status: Acute (3) Syncope and collapse Code(s): R55 - SYNCOPE AND COLLAPSE Status: Acute (4) Acute CVA (cerebrovascular accident) Code(s): I63.9 - CEREBRAL INFARCTION, UNSPECIFIED Status: Acute Plan: Mild involvement, continue ASA/Lipitor - Plan plan discussed w/ family, PT/OT, psych social worker, DVT proph w/SCDs Stable currently Pain control as clinically indicated Toradol IV PRN PT/OT for mobilization Inpt Rehab approval pending Resume home meds Nicotine patch Saline lock IVF's
--- NOTE | 2020-06-04 16:25 | PRG ---
DATE OF SERVICE: 06/04/2020 SUBJECTIVE: Trinh is unchanged. Physical Therapy feels he is a little bit stronger. He still cannot take care of himself of his upper extremities. Awaiting for [facility] bed. OBJECTIVE: VITAL SIGNS: Blood pressure 127/93, heart rate 93, and respiratory rates in the teens. LUNGS: Unchanged. HEART: Unchanged. ABDOMEN: Unchanged. IMPRESSION: 1. Central cord syndrome. 2. Congenital cervical spinal stenosis. 3. Status post fall downstairs. 4. Paraspinous ligament tear. 5. Contusion of the left forehead. 6. Heavy tobacco use prior to admission, dipping snuff. PLAN: Overall, he is stable for transfer. Job ID: [id number]
[2020-06-04] MEDS: Enoxaparin Sodium 40 MG/0.4 ML SYRINGE SC SCH (21:43)
[2020-06-04] MEDS: Lorazepam 1 MG TAB PO PRN (21:43)
[2020-06-04] MEDS: Atorvastatin Calcium 40 MG TAB PO SCH (21:44)
[2020-06-05] MEDS ORDERED: Morphine 2 MG/ML VIAL SLOW IVP SCH (02:15)
[2020-06-05] MEDS: Lisinopril 20 MG TAB PO SCH (09:28)
[2020-06-05] MEDS: Escitalopram Oxalate 20 mg Tablet PO SCH (09:29)
[2020-06-05] MEDS: Cyanocobalamin (Vitamin B-12) 1,000 MCG TAB PO SCH (09:29)
[2020-06-05] MEDS: Aspirin 81 mg Enteric Coated Tablet PO SCH (09:29)
[2020-06-05] MEDS: Folic Acid 1 MG TAB PO SCH (09:29)
[2020-06-05] MEDS: Docusate 100 MG CAP PO SCH ×2 (09:29→21:05)
[2020-06-05] MEDS: Amlodipine 5 MG TAB PO SCH (09:29)
[2020-06-05] MEDS: metFORMIN 500 MG TAB PO SCH (09:29)
[2020-06-05] MEDS: Ketorolac Tromethamine 30 MG/ML VIAL IVP PRN (09:30)
[2020-06-05] MEDS: levETIRAcetam 500 MG TAB PO SCH ×2 (09:30→21:04)
[2020-06-05] MEDS: Bupropion 150 MG SR TAB PO SCH ×2 (09:30→21:05)
[2020-06-05] MEDS: Nicotine 21 MG PATCH TD SCH (09:30)
--- NOTE | 2020-06-05 11:47 | PRG ---
DATE OF SERVICE: 06/05/2020 SUBJECTIVE: Mr. Trinh had no complaints. He slept well last night. He still has findings consistent with central cord syndrome. He is now significantly improved. He is awaiting transfer approval to [facility]. OBJECTIVE: VITAL SIGNS: He is afebrile. Heart rate is 90, blood pressure 132/78. LUNGS: Clear. HEART: Regular rhythm. ABDOMEN: Soft. LABORATORY DATA: White count 10.4, hemoglobin 11.8, platelets had a repeat CBC with lab in the morning. PLAN: He is stable for transfer. Job ID: [id number]
--- NOTE | 2020-06-05 11:59 | PDOC.NEUPN ---
- Subjective Encounter Date: 06/05/20 Subjective: Patient feels much better today and denies any complaints in the last 24 hours. There is progressive improvement in the strength of the upper extremities. - Objective Vital Signs & Weight: Vital Signs (12 hours) Temp Pulse BP Pulse Ox 06/05/20 11:29 96.4 F L 06/05/20 09:29 90 132/78 06/05/20 09:28 132/78 06/05/20 07:48 96.6 F L 06/05/20 03:45 97.2 F L 06/05/20 01:06 100 Weight Admit Weight 203 lb 6.4 oz Weight 202 lb 13.204 oz Most Recent Monitor Data Heart Rate from ECG 82 NIBP 121/78 NIBP BP-Mean 92 Respiration from ECG 15 SpO2 98 I&O: 06/04/20 06/05/20 06/06/20 06:59 06:59 06:59 Intake Total 1566 700 Output Total 1551 600 Balance 15 100 Result Diagrams: 05/31/20 03:12 05/31/20 03:12 Additional Labs: Accuchecks 06/04/20 06/04/20 20:43 18:29 POC Glucose 99 103 H Radiology Reviewed by me: Yes EKG Reviewed by me: Yes ROS - Review of Systems Constitutional: denies: fever, chills, sweats, weakness, malaise, other Eyes: denies: pain, vision change, conjunctivae inflammation, eyelid inflammation, redness, other ENT: denies: ear pain, ear discharge, nose pain, nose discharge, nose con gestion, mouth pain, mouth swelling, throat pain, throat swelling, other Respiratory: denies: cough, dry, shortness of breath, hemoptysis, SOB with excertion, pleuritic pain, sputum, wheezing, other Cardiovascular: reports: Hyperlipidemia Gastrointestinal: denies: nausea, vomiting, abdominal pain, diarrhea, constipation, melena, hematochezia, other Genitourinary: denies: dysuria, frequency, incontinence, hematuria, retention, other Musculoskeletal: reports: neck pain Skin: denies: rash, lesions, josé miguel, bruising, other Neurological: reports: weakness, numbness. denies: incoordination, change in speech, confusion, seizures, other - Medication Medications: Active Medications Generic Name Dose Route Start Last Admin Trade Name Freq PRN Reason Stop Dose Admin Acetaminophen 650 mg 05/27/20 11:04 06/03/20 10:13 Acetaminophen 325 Mg Tab PO 650 mg Q4H PRN Administration Headache/Fever/Mild Pain (1-3) Amlodipine Besylate 5 mg 06/02/20 09:00 06/05/20 09:29 Amlodipine 5 Mg Tab PO 5 mg DAILY VENKATESH Administration Aspirin 81 mg 05/28/20 09:00 06/05/20 09:29 Aspirin 81 Mg Enteric Coated Tablet PO 81 mg DAILY VENKATESH Administration Atorvastatin Calcium 40 mg 06/02/20 21:00 06/04/20 21:44 Atorvastatin Calcium 40 Mg Tab PO 40 mg HS VENKATESH Administration Bupropion HCl 150 mg 05/30/20 21:00 06/05/20 09:30 Bupropion 150 Mg Sr Tab PO 150 mg BID VENKATESH Administration Cyanocobalamin 1,000 mcg 05/29/20 09:00 06/05/20 09:29 Cyanocobalamin (Vitamin B-12) 1,000 Mcg Tab PO 1,000 mcg DAILY VENKATESH Administration Docusate Sodium 100 mg 06/03/20 21:00 06/05/20 09:29 Docusate 100 Mg Cap PO 100 mg BID VENKATESH Administration Enoxaparin Sodium 40 mg 05/27/20 21:00 06/04/20 21:43 Enoxaparin Sodium 40 Mg/0.4 Ml Syringe SC 40 mg HS VENKATESH Administration Escitalopram Oxalate 20 mg 05/31/20 09:00 06/05/20 09:29 Escitalopram Oxalate 20 Mg Tablet PO 20 mg DAILY VENKATESH Administration Folic Acid 1 mg 05/29/20 09:00 06/05/20 09:29 Folic Acid 1 Mg Tab PO 1 mg DAILY VENKATESH Administration Dexmedetomidine HCl 400 mcg/ 100 mls @ 0 mls/hr 05/31/20 11:15 05/31/20 11:59 Sodium Chloride IVPB 100 mls INF VENKATESH Administration Protocol Titrate Insulin Human Lispro 0 units 05/27/20 11:04 06/01/20 20:32 Humalog 300 Units/3 Ml Vial SC 2 unit .MILD SLIDING SCALE PRN Administration Mild Correctional Scale Ketorolac Tromethamine 30 mg 05/31/20 18:40 06/05/20 09:30 Ketorolac Tromethamine 30 Mg/Ml Vial IVP 06/05/20 18:41 30 mg Q6H PRN Administration Mild-Moderate Pain (1-5) Labetalol HCl 20 mg 05/28/20 01:37 05/29/20 03:39 Labetalol Hcl 100 Mg/20 Ml Vial SLOW IVP 20 mg Q4H PRN Administration SBP > 180 and HR >/= 70 Levetiracetam 500 mg 05/29/20 21:00 06/05/20 09:30 Levetiracetam 500 Mg Tab PO 500 mg BID VENKATESH Administration Lisinopril 40 mg 06/02/20 09:00 06/05/20 09:28 Lisinopril 20 Mg Tab PO 40 mg DAILY VENKATESH Administration Lorazepam 2 mg 05/28/20 16:27 06/04/20 21:43 Lorazepam 1 Mg Tab PO 2 mg Q4H PRN Administration Anxiety/Agitation Melatonin 3 mg 05/30/20 00:36 06/03/20 23:37 Melatonin 3 Mg Tab PO 3 mg HS PRN Administration Insomnia Metformin HCl 500 mg 06/02/20 09:00 06/05/20 09:29 Metformin 500 Mg Tab PO 500 mg DAILY VENKATESH Administration Nicotine 21 mg 06/01/20 09:00 06/05/20 09:30 Nicotine 21 Mg Patch TD Not Given DAILY VENKATESH Sodium Chloride 10 ml 05/27/20 21:00 06/05/20 09:30 Flush - Normal Saline 10 Ml Syringe IVF 10 ml Q12HR VENKATESH Administration - Exam General Appearance: awake alert Eye: PERRL ENT: normocephalic atraumatic Neck: supple Respiratory: CTAB Cardiovascular: RRR Gastrointestinal: soft Extremities: no cyanosis Skin: normal turgor Neurological: no new deficit Musculoskeletal: no muscle wasting PSYCH: normal affect, normal behavior, A&O x 3 Results - Labs Result Diagrams: 05/31/20 03:12 05/31/20 03:12 Lab results: WBC 10.4 thou/uL (4.8-10.8) 05/31/20 03:12 Hgb 11.8 g/dL (14.0-18.0) L 05/31/20 03:12 Hct 34.8 % (42.0-52.0) L 05/31/20 03:12 MCV 97.3 fL (78.0-98.0) 05/31/20 03:12 Plt Count 406 thou/uL (130-400) H 05/31/20 03:12 Neutrophils % 55.6 % (42.0-75.0) 05/31/20 03:12 Sodium 139 mmol/L (136-145) 05/31/20 03:12 Potassium 4.1 mmol/L (3.5-5.1) 05/31/20 03:12 Chloride 107 mmol/L (98-107) 05/31/20 03:12 Carbon Dioxide 23 mmol/L (23-31) 05/31/20 03:12 BUN 13 mg/dL (8.4-25.7) 05/31/20 03:12 Creatinine 0.74 mg/dL (0.7-1.3) 05/31/20 03:12 Glucose 110 mg/dL (80-115) 05/31/20 03:12 Lactic Acid 1.5 mmol/L (0.5-2.2) 05/27/20 07:20 Calcium 8.7 mg/dL (7.8-10.44) 05/31/20 03:12 Total Bilirubin 0.7 mg/dL (0.2-1.2) 05/27/20 07:21 AST 32 U/L (5-34) 05/27/20 07:21 ALT 27 U/L (8-55) 05/27/20 07:21 Alkaline Phosphatase 74 U/L (40-110) 05/27/20 07:21 Ammonia 36 umol/L (18-72) 05/27/20 15:59 Creatine Kinase 955 U/L (30-200) H 05/28/20 04:46 Troponin I Less than 0.010 ng/mL (< 0.028) 05/27/20 15:58 Serum Total Protein 7.3 g/dL (5.8-8.1) 05/27/20 07:21 Albumin 4.2 g/dL (3.4-4.8) 05/27/20 07:21 Lipase 14 U/L (8-78) 05/27/20 07:21 Urine Ketones Negative mg/dL (Negative) 05/27/20 09:20 Urine Blood Negative (Negative) 05/27/20 09:20 Urine Nitrite Negative (Negative) 05/27/20 09:20 Ur Leukocyte Esterase Negative Zia/uL (Negative) 05/27/20 09:20 PN A/P (1) Acute CVA (cerebrovascular accident) Code(s): I63.9 - CEREBRAL INFARCTION, UNSPECIFIED Status: Acute (2) Bilateral arm weakness Code(s): R29.898 - OTH SYMPTOMS AND SIGNS INVOLVING THE MUSCULOSKELETAL SYSTEM Status: Acute (3) Bilateral leg weakness Code(s): R29.898 - OTH SYMPTOMS AND SIGNS INVOLVING THE MUSCULOSKELETAL SYSTEM Status: Acute (4) Diabetes Code(s): E11.9 - TYPE 2 DIABETES MELLITUS WITHOUT COMPLICATIONS Status: Acute (5) Hypertension Code(s): I10 - ESSENTIAL (PRIMARY) HYPERTENSION Status: Acute - Plan Daily Plan: PT/OT, speech therapy, DVT proph w/SCDs 64-year-old male who presented with acute onset confusion status post fall. No focal deficits were evident on initial exam. MRI brain consistent with acute infarction in the left temporal region. However, the patient developed weakness of both upper and lower extremity on 05/29/2020 with waxing and waning mental status. Urgent MRI of the cervical spine was done on05/29/2020 which showed retropharyngeal hematoma and cervical spine stenosis. Neurosurgery on board and did not feel the need for surgical intervention over the weekend. The patient's bilateral lower extremity weakness is almost resolved but he is still weak in the upper extremities . There is progressive improvement in the strength of the upper extremities since the last 3 days. Continue PT/OT. Awaiting inpatient rehab. MRI of the brain reviewed and was positive for infarction in the left temporal region. EEG reviewed and was negative for seizure activity. Continue Keppra 500 mg twice daily since patient is increased risk of seizures because of infarction in the left temporal region. Carotid Dopplers completed. Limited study with concern of carotid stenosis. Follow-up CT angiogram of head and neck negative for hemodynamically significant stenosis. Neurochecks every 2 hours. Continue home medications. Strict control of blood glucose and BP. DVT prophylaxis. Continue speech therapy Continue medical management per primary team. Plan discussed in detail with the patient and the patient's brother
--- NOTE | 2020-06-05 17:29 | PDOC.HOSPP ---
- Subjective Encounter Date: 06/05/20 Encounter Time: 17:25 Subjective: f/u for severe cervical spinal stenosis s/p fall with [facility]. Awaiting inpt rehab approval. - Objective Vital Signs & Weight: Vital Signs (12 hours) Temp Pulse Pulse BP BP Pulse Ox 06/05/20 15:46 97.1 F L 06/05/20 11:41 96 122/84 06/05/20 11:29 96.4 F L 06/05/20 09:29 90 132/78 06/05/20 09:28 132/78 06/05/20 08:00 98 06/05/20 07:48 96.6 F L Weight Admit Weight 203 lb 6.4 oz Weight 202 lb 13.204 oz Most Recent Monitor Data Heart Rate from ECG 79 NIBP 124/79 NIBP BP-Mean 94 Respiration from ECG 13 SpO2 100 I&O: 06/04/20 06/05/20 06/06/20 06:59 06:59 06:59 Intake Total 1566 700 Output Total 1551 600 Balance 15 100 Result Diagrams: 05/31/20 03:12 05/31/20 03:12 Additional Labs: Accuchecks 06/04/20 06/04/20 20:43 18:29 POC Glucose 99 103 H Microbiology 05/27/20 15:59 Venous blood - Left Hand Blood Culture - Final Alpha-Strep, not S. pneumoniae 05/27/20 15:58 Venous blood - Right Hand Blood Culture - Preliminary NO GROWTH AT 48 HOURS Laboratory Tests 05/27/20 05/27/20 05/27/20 07:20 07:21 07:21 WBC 12.0 H Creatine Kinase 1672 H Vitamin B12 Folate TSH 3rd Generation Plasma Alcohol Less than 10 SARS-CoV-2 (PCR) 05/27/20 05/28/20 05/28/20 12:51 04:46 04:46 WBC 10.6 Creatine Kinase 955 H Vitamin B12 Folate TSH 3rd Generation Plasma Alcohol SARS-CoV-2 (PCR) Not Detected 05/29/20 05/29/20 04:28 04:28 WBC Creatine Kinase Vitamin B12 264 Folate 5.60 L TSH 3rd Generation 1.5377 Plasma Alcohol SARS-CoV-2 (PCR) EKG Reviewed by me: Yes (Tele - SR) Hospitalist ROS - Medication Medications: Active Medications Generic Name Dose Route Start Last Admin Trade Name Freq PRN Reason Stop Dose Admin Acetaminophen 650 mg 05/27/20 11:04 06/03/20 10:13 Acetaminophen 325 Mg Tab PO 650 mg Q4H PRN Administration Headache/Fever/Mild Pain (1-3) Amlodipine Besylate 5 mg 06/02/20 09:00 06/05/20 09:29 Amlodipine 5 Mg Tab PO 5 mg DAILY VENKATESH Administration Aspirin 81 mg 05/28/20 09:00 06/05/20 09:29 Aspirin 81 Mg Enteric Coated Tablet PO 81 mg DAILY VENKATESH Administration Atorvastatin Calcium 40 mg 06/02/20 21:00 06/04/20 21:44 Atorvastatin Calcium 40 Mg Tab PO 40 mg HS VENKATESH Administration Bupropion HCl 150 mg 05/30/20 21:00 06/05/20 09:30 Bupropion 150 Mg Sr Tab PO 150 mg BID VENKATESH Administration Cyanocobalamin 1,000 mcg 05/29/20 09:00 06/05/20 09:29 Cyanocobalamin (Vitamin B-12) 1,000 Mcg Tab PO 1,000 mcg DAILY VENKATESH Administration Docusate Sodium 100 mg 06/03/20 21:00 06/05/20 09:29 Docusate 100 Mg Cap PO 100 mg BID VENKATESH Administration Enoxaparin Sodium 40 mg 05/27/20 21:00 06/04/20 21:43 Enoxaparin Sodium 40 Mg/0.4 Ml Syringe SC 40 mg HS VENKATESH Administration Escitalopram Oxalate 20 mg 05/31/20 09:00 06/05/20 09:29 Escitalopram Oxalate 20 Mg Tablet PO 20 mg DAILY VENKATESH Administration Folic Acid 1 mg 05/29/20 09:00 06/05/20 09:29 Folic Acid 1 Mg Tab PO 1 mg DAILY VENKATESH Administration Dexmedetomidine HCl 400 mcg/ 100 mls @ 0 mls/hr 05/31/20 11:15 05/31/20 11:59 Sodium Chloride IVPB 100 mls INF VENKATESH Administration Protocol Titrate Insulin Human Lispro 0 units 05/27/20 11:04 06/01/20 20:32 Humalog 300 Units/3 Ml Vial SC 2 unit .MILD SLIDING SCALE PRN Administration Mild Correctional Scale Ketorolac Tromethamine 30 mg 05/31/20 18:40 06/05/20 09:30 Ketorolac Tromethamine 30 Mg/Ml Vial IVP 10/23/20 18:41 30 mg Q6H PRN Administration Mild-Moderate Pain (1-5) Labetalol HCl 20 mg 05/28/20 01:37 05/29/20 03:39 Labetalol Hcl 100 Mg/20 Ml Vial SLOW IVP 20 mg Q4H PRN Administration SBP > 180 and HR >/= 70 Levetiracetam 500 mg 05/29/20 21:00 06/05/20 09:30 Levetiracetam 500 Mg Tab PO 500 mg BID VENKATESH Administration Lisinopril 40 mg 06/02/20 09:00 06/05/20 09:28 Lisinopril 20 Mg Tab PO 40 mg DAILY VENKATESH Administration Lorazepam 2 mg 05/28/20 16:27 06/04/20 21:43 Lorazepam 1 Mg Tab PO 2 mg Q4H PRN Administration Anxiety/Agitation Melatonin 3 mg 05/30/20 00:36 06/03/20 23:37 Melatonin 3 Mg Tab PO 3 mg HS PRN Administration Insomnia Metformin HCl 500 mg 06/02/20 09:00 06/05/20 09:29 Metformin 500 Mg Tab PO 500 mg DAILY VENKATESH Administration Nicotine 21 mg 06/01/20 09:00 06/05/20 09:30 Nicotine 21 Mg Patch TD Not Given DAILY VENKATESH Sodium Chloride 10 ml 05/27/20 21:00 06/05/20 09:30 Flush - Normal Saline 10 Ml Syringe IVF 10 ml Q12HR VENKATESH Administration - Exam General Appearance: NAD Eye: PERRL, anicteric sclera ENT: normocephalic atraumatic, no oropharyngeal lesions Neck: supple, symmetric, no JVD, no thyromegaly, no lymphadenopathy Heart: RRR, no murmur, no gallops, no rubs, normal peripheral pulses Heart - other findings: S1, S2 Respiratory: CTAB, no wheezes, no rales, no ronchi, normal chest expansion Gastrointestinal: soft, non-tender, non-distended, normal bowel sounds, no palpable masses Extremities: no cyanosis, no clubbing, no edema Skin: normal turgor, no lesions Neurological: cranial nerve grossly intact, no new deficit Neurological - other findings: BUE 1/5, LE's with full ROM, 5/5 Musculoskeletal: generalized weakness Psychiatric: normal affect, A&O x 3 Hosp A/P (1) Traumatic edema of cervical spinal cord Code(s): S14.0XXA - CONCUSSION AND EDEMA OF CERVICAL SPINAL CORD, INIT ENCNTR Status: Acute Plan: Continue supportive mgmt, C-collar, PT/OT, plan for inpt rehab (2) Closed head injury Code(s): S09.90XA - UNSPECIFIED INJURY OF HEAD, INITIAL ENCOUNTER Status: Acute Plan: Stable currently (3) Syncope and collapse Code(s): R55 - SYNCOPE AND COLLAPSE Status: Acute (4) Acute CVA (cerebrovascular accident) Code(s): I63.9 - CEREBRAL INFARCTION, UNSPECIFIED Status: Acute Plan: Mild, continue med mgmt, PT/OT - Plan PT/OT, neonatal social worker, out of bed/ambulate, DVT proph w/SCDs Stable currently Pain control as clinically indicated Toradol IV PRN PT/OT for mobilization Inpt Rehab approval pending Resume home meds Nicotine patch Saline lock IVF's Bowel regimen
[2020-06-05] MEDS: Enoxaparin Sodium 40 MG/0.4 ML SYRINGE SC SCH (21:04)
[2020-06-05] MEDS: Atorvastatin Calcium 40 MG TAB PO SCH (21:04)
[2020-06-05] MEDS: Lorazepam 1 MG TAB PO PRN (22:46)
[2020-06-05] MEDS ORDERED: Ketorolac Tromethamine 30 MG/ML VIAL IVP SCH (23:30)
[2020-06-06 04:15] LABS: Band 3 % (5-11); Eosinophils 1 % (0-10); Hemoglobin 12.4 g/dL (14.0-18.0); Lymphocytes 40 % (21-51); MDiff Complete? YES; Mean Corpuscular HGB CONC 33.2 g/dL (32.0-36.0); Mean Corpuscular Hemoglobin 32.9 pg (27.0-31.0); Mean Platelet Volume 5.9 fL (7.4-10.4); Monocytes 4 % (0-10); Neutrophil 52 % (42-75); Platelet Count 469 thou/uL (130-400); RBC Distribution Width 12.6 % (11.5-14.5); Red Blood Cell (RBC) Count 3.76 mill/uL (4.70-6.10); White Blood Cell (WBC) Count 10.9 thou/uL (4.8-10.8)
[2020-06-06 04:17] LABS: Anion Gap 12 mmol/L (10-20); BUN (Urea Nitrogen) 24 mg/dL (8.4-25.7); Calc. Creatinine Clearance 131 mL/min (70-130); Calcium 8.9 mg/dL (7.8-10.44); Carbon Dioxide 25 mmol/L (23-31); Chloride 106 mmol/L (98-107); Estimated GFR-MDRD Greater than 90; Glucose 122 mg/dL (80-115); Potassium 4.3 mmol/L (3.5-5.1); Sodium 139 mmol/L (136-145)
[2020-06-06] MEDS: Bupropion 150 MG SR TAB PO SCH ×2 (09:14→20:37)
[2020-06-06] MEDS: Aspirin 81 mg Enteric Coated Tablet PO SCH (09:14)
[2020-06-06] MEDS: Lisinopril 20 MG TAB PO SCH (09:14)
[2020-06-06] MEDS: levETIRAcetam 500 MG TAB PO SCH ×2 (09:15→20:38)
[2020-06-06] MEDS: Amlodipine 5 MG TAB PO SCH (09:15)
[2020-06-06] MEDS: metFORMIN 500 MG TAB PO SCH (09:15)
[2020-06-06] MEDS: Docusate 100 MG CAP PO SCH ×2 (09:15→20:37)
[2020-06-06] MEDS: Escitalopram Oxalate 20 mg Tablet PO SCH (09:15)
[2020-06-06] MEDS: Folic Acid 1 MG TAB PO SCH (09:15)
[2020-06-06] MEDS: Cyanocobalamin (Vitamin B-12) 1,000 MCG TAB PO SCH (09:16)
[2020-06-06] MEDS: Acetaminophen 325 MG TAB PO PRN (09:16)
[2020-06-06] MEDS: Nicotine 21 MG PATCH TD SCH (09:18)
--- NOTE | 2020-06-06 18:11 | PDOC.HOSPP ---
- Subjective Encounter Date: 06/06/20 Encounter Time: 16:00 Subjective: F/u: stroke, upper extremity weakness The patient is doing well. His main complaint is that he feels he is going to fall when he stands up and that his legs will give out. He cannot walk as of yet. Waiting on rehab bed - Objective Vital Signs & Weight: Vital Signs (12 hours) Temp Pulse BP Pulse Ox 06/06/20 15:33 96.5 F L 06/06/20 11:48 96.9 F L 06/06/20 09:15 90 122/77 06/06/20 09:14 122/77 06/06/20 08:00 97.2 F L 97 Weight Admit Weight 203 lb 6.4 oz Weight 202 lb 13.204 oz Most Recent Monitor Data Heart Rate from ECG 82 NIBP 145/91 NIBP BP-Mean 109 Respiration from ECG 14 SpO2 100 I&O: 06/05/20 06/06/20 06/07/20 06:59 06:59 06:59 Intake Total 700 480 500 Output Total 608 715 3654 Balance 100 220 -542 Result Diagrams: 06/06/20 03:14 06/06/20 03:14 Additional Labs: Accuchecks 06/06/20 06/06/20 06/06/20 17:51 10:41 05:32 POC Glucose 117 H 103 H 158 H 06/05/20 06/05/20 06/05/20 20:27 10:26 10:09 POC Glucose 90 144 H 98 Hospitalist ROS - Review of Systems Constitutional: denies: fever, chills - Medication Medications: Active Medications Generic Name Dose Route Start Last Admin Trade Name Leninq PRN Reason Stop Dose Admin Acetaminophen 650 mg 05/27/20 11:04 06/06/20 09:16 Acetaminophen 325 Mg Tab PO 650 mg Q4H PRN Administration Headache/Fever/Mild Pain (1-3) Amlodipine Besylate 5 mg 06/02/20 09:00 06/06/20 09:15 Amlodipine 5 Mg Tab PO 5 mg DAILY VENKATESH Administration Aspirin 81 mg 05/28/20 09:00 06/06/20 09:14 Aspirin 81 Mg Enteric Coated Tablet PO 81 mg DAILY VENKATESH Administration Atorvastatin Calcium 40 mg 06/02/20 21:00 06/05/20 21:04 Atorvastatin Calcium 40 Mg Tab PO 40 mg HS VENKATESH Administration Bupropion HCl 150 mg 05/30/20 21:00 06/06/20 09:14 Bupropion 150 Mg Sr Tab PO 150 mg BID VENKATESH Administration Cyanocobalamin 1,000 mcg 05/29/20 09:00 06/06/20 09:16 Cyanocobalamin (Vitamin B-12) 1,000 Mcg Tab PO 1,000 mcg DAILY VENKATESH Administration Docusate Sodium 100 mg 06/03/20 21:00 06/06/20 09:15 Docusate 100 Mg Cap PO 100 mg BID VENKATESH Administration Enoxaparin Sodium 40 mg 05/27/20 21:00 06/05/20 21:04 Enoxaparin Sodium 40 Mg/0.4 Ml Syringe SC 40 mg HS VENKATESH Administration Escitalopram Oxalate 20 mg 05/31/20 09:00 06/06/20 09:15 Escitalopram Oxalate 20 Mg Tablet PO 20 mg DAILY VENKATESH Administration Folic Acid 1 mg 05/29/20 09:00 06/06/20 09:15 Folic Acid 1 Mg Tab PO 1 mg DAILY VENKATESH Administration Dexmedetomidine HCl 400 mcg/ 100 mls @ 0 mls/hr 05/31/20 11:15 05/31/20 11:59 Sodium Chloride IVPB 100 mls INF VENKATESH Administration Protocol Titrate Insulin Human Lispro 0 units 05/27/20 11:04 06/01/20 20:32 Humalog 300 Units/3 Ml Vial SC 2 unit .MILD SLIDING SCALE PRN Administration Mild Correctional Scale Labetalol HCl 20 mg 05/28/20 01:37 05/29/20 03:39 Labetalol Hcl 100 Mg/20 Ml Vial SLOW IVP 20 mg Q4H PRN Administration SBP > 180 and HR >/= 70 Levetiracetam 500 mg 05/29/20 21:00 06/06/20 09:15 Levetiracetam 500 Mg Tab PO 500 mg BID VENKATESH Administration Lisinopril 40 mg 06/02/20 09:00 06/06/20 09:14 Lisinopril 20 Mg Tab PO 40 mg DAILY VENKATESH Administration Lorazepam 2 mg 05/28/20 16:27 06/05/20 22:46 Lorazepam 1 Mg Tab PO 2 mg Q4H PRN Administration Anxiety/Agitation Melatonin 3 mg 05/30/20 00:36 06/03/20 23:37 Melatonin 3 Mg Tab PO 3 mg HS PRN Administration Insomnia Metformin HCl 500 mg 06/02/20 09:00 06/06/20 09:15 Metformin 500 Mg Tab PO 500 mg DAILY VENKATESH Administration Nicotine 21 mg 06/01/20 09:00 06/06/20 09:18 Nicotine 21 Mg Patch TD Not Given DAILY VENKATESH Sodium Chloride 10 ml 05/27/20 21:00 06/06/20 09:19 Flush - Normal Saline 10 Ml Syringe IVF 10 ml Q12HR VENKATESH Administration - Exam General Appearance: NAD, awake alert Eye: PERRL, anicteric sclera ENT: normocephalic atraumatic, no oropharyngeal lesions Neck: no JVD Heart: RRR, no murmur, no gallops, no rubs Respiratory: CTAB, no wheezes, no rales, no ronchi Gastrointestinal: soft, non-tender, non-distended, normal bowel sounds Extremities: no cyanosis, no clubbing, no edema Skin: normal turgor, no lesions, no rashes Neurological - other findings: brisk reflexes patella. 2+ right arm biceps/brachio, 2+ left arm but slower Musculoskeletal - other findings: bilateral weakness upper ext. Normal strength lower extremities Hosp A/P - Plan Carotid doppler: Limited exam, but possible left internal carotid artery stenosis CT brain: left scalp hematoma CT cervical spine: prominent degenerative changes Chest X ray: no acute findings MRI brain: small focus of restricted diffusion involving left temporal lobe Carotid dopplers: left internal carotid artery is not visualized. CTA head and neck: no significant stenosis ECHO: EF 55-60%, mild MR, mild TR MRI cervical spine: hematoma throughout retropharyngeal space of entire cervical spine and upper thoracic spine with possible tear of longitudinal ligament. 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 CT brain negative, MRI shows left temporal lobe stroke . CTA head and neck unremarkable, carotid doppler showed possible left ICA stenosis - EEG was normal. NEurology started on keppra due to waxing and waning mental status . 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 Neurosurgery consulted, was considered for surgery but patient wnats to exhaust all conservative options f irst - he will be transferred to an inpatient Retropharyngeal space hematoma -stable, no intervention per neurosurgery since not impinging on spine Delirium - resolved - unclear etiology. EEG negative, does have mild stroke , not getting sedati ves. Blood culture positive 1/2 for alpha strep, likely contaminant. UA negative, chest X ray normal Possible BENJAMÍN - patient was noted to be snoring heavily while on stroke floor, consider outpatient workup curs S/p fall - continue with PT Anemia - Hb 12.4, stable Leukocytosis- resolved Dispo: pending placement at inpatient rehab DVT prophylaxis: lovenox Code status: full code
[2020-06-06] MEDS: Atorvastatin Calcium 40 MG TAB PO SCH (20:37)
[2020-06-06] MEDS: Enoxaparin Sodium 40 MG/0.4 ML SYRINGE SC SCH (20:37)
[2020-06-06] MEDS: Lorazepam 1 MG TAB PO PRN (20:38)
[2020-06-06] MEDS: Ketorolac Tromethamine 30 MG/ML VIAL IVP PRN (20:38)
[2020-06-06] MEDS: Melatonin 3 MG TAB PO PRN (23:57)
[2020-06-07 06:35] LABS: Anion Gap 13 mmol/L (10-20); BUN (Urea Nitrogen) 27 mg/dL (8.4-25.7); Calc. Creatinine Clearance 116 mL/min (70-130); Calcium 9.4 mg/dL (7.8-10.44); Carbon Dioxide 21 mmol/L (23-31); Chloride 107 mmol/L (98-107); Estimated GFR-MDRD Greater than 90; Glucose 103 mg/dL (80-115); Potassium 4.5 mmol/L (3.5-5.1); Sodium 136 mmol/L (136-145)
[2020-06-07] MEDS: Ketorolac Tromethamine 30 MG/ML VIAL IVP PRN ×2 (06:38→12:44)
[2020-06-07 09:05] LABS: Band 6 % (5-11); Eosinophils 1 % (0-10); Hemoglobin 13.1 g/dL (14.0-18.0); Lymphocytes 20 % (21-51); MDiff Complete? YES; Mean Corpuscular HGB CONC 33.8 g/dL (32.0-36.0); Mean Corpuscular Hemoglobin 32.9 pg (27.0-31.0); Mean Corpuscular Volume 97.4 fL (78.0-98.0); Mean Platelet Volume 6.1 fL (7.4-10.4); Monocytes 6 % (0-10); Neutrophil 66 % (42-75); Platelet Count 549 thou/uL (130-400); RBC Distribution Width 12.7 % (11.5-14.5); Red Blood Cell (RBC) Count 3.98 mill/uL (4.70-6.10); White Blood Cell (WBC) Count 11.8 thou/uL (4.8-10.8)
[2020-06-07] MEDS: Escitalopram Oxalate 20 mg Tablet PO SCH (09:35)
[2020-06-07] MEDS: Cyanocobalamin (Vitamin B-12) 1,000 MCG TAB PO SCH (09:35)
[2020-06-07] MEDS: Lisinopril 20 MG TAB PO SCH (09:35)
[2020-06-07] MEDS: levETIRAcetam 500 MG TAB PO SCH ×2 (09:36→20:50)
[2020-06-07] MEDS: metFORMIN 500 MG TAB PO SCH (09:36)
[2020-06-07] MEDS: Amlodipine 5 MG TAB PO SCH (09:36)
[2020-06-07] MEDS: Docusate 100 MG CAP PO SCH ×2 (09:36→20:49)
[2020-06-07] MEDS: Bupropion 150 MG SR TAB PO SCH ×2 (09:37→20:49)
[2020-06-07] MEDS: Aspirin 81 mg Enteric Coated Tablet PO SCH (09:37)
[2020-06-07] MEDS: Nicotine 21 MG PATCH TD SCH (09:37)
[2020-06-07] MEDS: Folic Acid 1 MG TAB PO SCH (09:37)
[2020-06-07] MEDS: Lorazepam 1 MG TAB PO PRN (09:47)
--- NOTE | 2020-06-07 15:57 | PDOC.HOSPP ---
- Subjective Encounter Date: 06/07/20 Encounter Time: 15:54 Subjective: ' The patient complains of severe neck pain when turning head to either side. He describes the pain as an aching pain. States he got his toradol one hour late which didnt help. He takes aspirin 1000 mg daily 200 days out of the year which works better than aleve The patient also complains of left hip pain. He is still unable to walk and reports that his hip hurts more on the left side. He feels unsteady in both legs when he stands . Reports history of sciatica in the past years ago . He wants to see if he has any problems with his hip because when he had the same pain on his right side years ago, he had severe arthritis requiring hip replacement and patient wants to avoid another hip replacement if possible He is also wondering why his left arm became weak while in the hospital even though it wasn't weak initially when he first came in. - Objective Vital Signs & Weight: Vital Signs (12 hours) Temp Pulse Resp BP BP Pulse Ox 06/07/20 12:00 98.5 F 87 15 127/88 96 06/07/20 09:36 73 138/87 06/07/20 09:35 138/87 06/07/20 08:00 97.7 F 73 16 138/87 96 06/07/20 04:00 97.6 F 77 18 120/75 99 Weight Admit Weight 203 lb 6.4 oz Weight 202 lb 13.204 oz Most Recent Monitor Data Heart Rate from ECG 82 NIBP 145/91 NIBP BP-Mean 109 Respiration from ECG 14 SpO2 100 I&O: 06/06/20 06/07/20 06/08/20 06:59 06:59 06:59 Intake Total 480 1220 200 Output Total 700 3775 Balance -220 -2555 200 Result Diagrams: 06/07/20 05:48 06/07/20 05:48 Additional Labs: Accuchecks 06/07/20 06/07/20 06/06/20 11:56 05:12 21:58 POC Glucose 128 H 150 H 104 H 06/06/20 17:51 POC Glucose 117 H Hospitalist ROS - Review of Systems Constitutional: denies: fever, chills - Medication Medications: Active Medications Generic Name Dose Route Start Last Admin Trade Name Freq PRN Reason Stop Dose Admin Acetaminophen 650 mg 05/27/20 11:04 06/06/20 09:16 Acetaminophen 325 Mg Tab PO 650 mg Q4H PRN Administration Headache/Fever/Mild Pain (1-3) Amlodipine Besylate 5 mg 06/02/20 09:00 06/07/20 09:36 Amlodipine 5 Mg Tab PO 5 mg DAILY VENKATESH Administration Aspirin 81 mg 05/28/20 09:00 06/07/20 09:37 Aspirin 81 Mg Enteric Coated Tablet PO 81 mg DAILY VENKATESH Administration Atorvastatin Calcium 40 mg 06/02/20 21:00 06/06/20 20:37 Atorvastatin Calcium 40 Mg Tab PO 40 mg HS VENKATESH Administration Bupropion HCl 150 mg 05/30/20 21:00 06/07/20 09:37 Bupropion 150 Mg Sr Tab PO 150 mg BID VENKATESH Administration Cyanocobalamin 1,000 mcg 05/29/20 09:00 06/07/20 09:35 Cyanocobalamin (Vitamin B-12) 1,000 Mcg Tab PO 1,000 mcg DAILY VENKATESH Administration Docusate Sodium 100 mg 06/03/20 21:00 06/07/20 09:36 Docusate 100 Mg Cap PO 100 mg BID VENKATESH Administration Enoxaparin Sodium 40 mg 05/27/20 21:00 06/06/20 20:37 Enoxaparin Sodium 40 Mg/0.4 Ml Syringe SC 40 mg HS VENKATESH Administration Escitalopram Oxalate 20 mg 05/31/20 09:00 06/07/20 09:35 Escitalopram Oxalate 20 Mg Tablet PO 20 mg DAILY VENKATESH Administration Folic Acid 1 mg 05/29/20 09:00 06/07/20 09:37 Folic Acid 1 Mg Tab PO 1 mg DAILY VENKATESH Administration Insulin Human Lispro 0 units 05/27/20 11:04 06/01/20 20:32 Humalog 300 Units/3 Ml Vial SC 2 unit .MILD SLIDING SCALE PRN Administration Mild Correctional Scale Ketorolac Tromethamine 30 mg 06/06/20 09:13 06/07/20 12:44 Ketorolac Tromethamine 30 Mg/Ml Vial IVP 06/11/20 09:14 30 mg Q6H PRN Administration Pain Labetalol HCl 20 mg 05/28/20 01:37 05/29/20 03:39 Labetalol Hcl 100 Mg/20 Ml Vial SLOW IVP 20 mg Q4H PRN Administration SBP > 180 and HR >/= 70 Levetiracetam 500 mg 05/29/20 21:00 06/07/20 09:36 Levetiracetam 500 Mg Tab PO 500 mg BID VENKATESH Administration Lisinopril 40 mg 06/02/20 09:00 06/07/20 09:35 Lisinopril 20 Mg Tab PO 40 mg DAILY VENKATESH Administration Lorazepam 2 mg 05/28/20 16:27 06/07/20 09:47 Lorazepam 1 Mg Tab PO 2 mg Q4H PRN Administration Anxiety/Agitation Melatonin 3 mg 05/30/20 00:36 06/06/20 23:57 Melatonin 3 Mg Tab PO 3 mg HS PRN Administration Insomnia Metformin HCl 500 mg 06/02/20 09:00 06/07/20 09:36 Metformin 500 Mg Tab PO 500 mg DAILY VENKATESH Administration Nicotine 21 mg 06/01/20 09:00 06/07/20 09:37 Nicotine 21 Mg Patch TD Not Given DAILY VENKATESH Sodium Chloride 10 ml 05/27/20 21:00 06/07/20 09:34 Flush - Normal Saline 10 Ml Syringe IVF 10 ml Q12HR VENKATESH Administration - Exam General Appearance: NAD, awake alert General - other findings: mild lump on left forehead Eye: PERRL, anicteric sclera ENT: normocephalic atraumatic, no oropharyngeal lesions Neck - other findings: neck pain when turning head side to side Extremities: no cyanosis, no clubbing, no edema Neurological - other findings: reflexes 1+ biceps bilaterally, 2+ patella bilaterally . Ankle 1+ Musculoskeletal: normal strength (reduced strength bilateral arms, normal strength in legs) Musculoskeletal - other findings: bilateral weakness worst on left, cannot lift left arm above elbow Hosp A/P - Plan Carotid doppler: Limited exam, but possible left internal carotid artery stenosis CT brain: left scalp hematoma CT cervical spine: prominent degenerative changes Chest X ray: no acute findings MRI brain: small focus of restricted diffusion involving left temporal lobe Carotid dopplers: left internal carotid artery is not visualized. CTA head and neck: no significant stenosis ECHO: EF 55-60%, mild MR, mild TR MRI cervical spine: hematoma throughout retropharyngeal space of entire cervical spine and upper thoracic spine with possible tear of longitudinal ligament. 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 CT brain negative, MRI shows left temporal lobe stroke . CTA head and neck unremarkable, carotid doppler showed possible left ICA stenosis - EEG was normal. NEurology started on keppra. Recommended continuing this since high risk for seizures. 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 Neurosurgery consulted, was considered for surgery but patient wants to exhaust all conservative options first - he will be transferred to an inpatient rehab facility in [place] when bed is available #Bilateral lower extremity weakness #Left hip pain - patient reports gait unsteadiness while ambulating. Will check MRI lumbar spine - check left hip Xray Retropharyngeal space hematoma -stable, no intervention per neurosurgery since not impinging on spine - possibly from high doses of aspirin patient was taking at home? Delirium - resolved - possibly from concussion from head trauma. EEG negative, does have mild stroke , not getting sedatives. Blood culture positive 1/2 for alpha strep, likely contaminant. UA negative, chest X ray normal Possible BENJAMÍN - patient was noted to be snoring heavily while on stroke floor, consider outpatient workup S/p fall - continue with PT Anemia - Hb 13.1 Leukocytosis - WBC up to 13.8, unclear etiology - UA and chest X ray normal on admission Dispo: pending placement at inpatient rehab DVT prophylaxis: lovenox Code status: full code
[2020-06-07] MEDS: Enoxaparin Sodium 40 MG/0.4 ML SYRINGE SC SCH (20:49)
[2020-06-07] MEDS: Atorvastatin Calcium 40 MG TAB PO SCH (20:49)
[2020-06-07] MEDS: Gabapentin 100 MG CAP PO SCH (20:50)
--- NOTE | 2020-06-07 20:55 | RAD ---
LEFT HIP TWO VIEWS: History: Hip pain status fall FINDINGS: Marked arthritic changes of the hip. There is no fracture. IMPRESSION: No evidence of fracture. POS: OFF
[2020-06-07] MEDS ORDERED: Melatonin 3 MG TAB PO SCH (22:30)
[2020-06-07] MEDS ORDERED: ALPRAZolam 0.25 MG TAB PO SCH (23:00)
[2020-06-07] MEDS: Cyclobenzaprine 10 MG TAB PO PRN (23:57)
[2020-06-08] MEDS ORDERED: Morphine 2 MG/ML VIAL SLOW IVP SCH (03:30)
[2020-06-08 05:45] LABS: Anion Gap 13 mmol/L (10-20); BUN (Urea Nitrogen) 22 mg/dL (8.4-25.7); Calc. Creatinine Clearance 107 mL/min (70-130); Calcium 9.2 mg/dL (7.8-10.44); Carbon Dioxide 22 mmol/L (23-31); Chloride 108 mmol/L (98-107); Estimated GFR-MDRD 83; Glucose 105 mg/dL (80-115); Potassium 4.4 mmol/L (3.5-5.1); Sodium 139 mmol/L (136-145)
[2020-06-08 05:48] LABS: ALT (SGPT) 27 U/L (8-55); AST (SGOT) 16 U/L (5-34); Albumin 3.6 g/dL (3.4-4.8); Alkaline Phosphatase 84 U/L (40-110); Bilirubin, Direct 0.1 mg/dL (0.1-0.3); Bilirubin, Total 0.2 mg/dL (0.2-1.2); Lipase 35 U/L (8-78); Protein, Total 6.1 g/dL (5.8-8.1)
[2020-06-08 05:52] LABS: Hemoglobin 12.6 g/dL (14.0-18.0); Mean Corpuscular HGB CONC 33.6 g/dL (32.0-36.0); Mean Corpuscular Hemoglobin 33.3 pg (27.0-31.0); Mean Corpuscular Volume 99.1 fL (78.0-98.0); Platelet Count 501 thou/uL (130-400); RBC Distribution Width 12.7 % (11.5-14.5); White Blood Cell (WBC) Count 10.5 thou/uL (4.8-10.8)
[2020-06-08 05:58] LABS: Band 5 % (5-11); Eosinophils 6 % (0-10); Lymphocytes 32 % (21-51); MDiff Complete? YES; Monocytes 6 % (0-10); Neutrophil 51 % (42-75)
[2020-06-08] MEDS: Ketorolac Tromethamine 30 MG/ML VIAL IVP PRN (06:34)
[2020-06-08] MEDS: Aspirin 81 mg Enteric Coated Tablet PO SCH (09:03)
[2020-06-08] MEDS: Lisinopril 20 MG TAB PO SCH (09:03)
[2020-06-08] MEDS: Bupropion 150 MG SR TAB PO SCH ×2 (09:03→21:14)
[2020-06-08] MEDS: Cyanocobalamin (Vitamin B-12) 1,000 MCG TAB PO SCH (09:03)
[2020-06-08] MEDS: Escitalopram Oxalate 20 mg Tablet PO SCH (09:04)
[2020-06-08] MEDS: Folic Acid 1 MG TAB PO SCH (09:04)
[2020-06-08] MEDS: metFORMIN 500 MG TAB PO SCH (09:04)
[2020-06-08] MEDS: Docusate 100 MG CAP PO SCH ×2 (09:04→21:14)
[2020-06-08] MEDS: levETIRAcetam 500 MG TAB PO SCH ×2 (09:05→21:14)
[2020-06-08] MEDS: Gabapentin 100 MG CAP PO SCH ×3 (09:05→21:14)
[2020-06-08] MEDS: Amlodipine 5 MG TAB PO SCH (09:21)
[2020-06-08] MEDS: Nicotine 21 MG PATCH TD SCH (09:22)
--- NOTE | 2020-06-08 10:45 | MRI ---
Exam: Brain MRI without contrast HISTORY: Gait instability. Left arm weakness. COMPARISON: 05/27/2020 FINDINGS: Calvarial marrow signal intensity: Appropriate T1 marrow signal intensity. Left frontal scalp hematom a is redemonstrated. Gradient echo sequence: No hemorrhage Brain parenchyma: No mass, mass effect or midline shift. Brain volume, age-appropriate. Cortical jose-white matter differentiation: Preserved Restricted diffusion: Central arterial flow voids are maintained. Absent restricted diffusion. Previo us noted restricted diffusion has resolved. White matter signal intensities:Stable scattered T2, FLAIR white matter hyperintensities due to chron ic small vessel ischemic changes Sinuses: Partial opacification of the mastoid air cells, unchanged. IMPRESSION: 1. Absent restricted diffusion. No acute infarct. Previously noted restricted diffusion has resolved. 2. Stable partial opacification of bilateral mastoid air cells. 3. Stable left frontal scalp hematoma.
--- NOTE | 2020-06-08 12:08 | MRI ---
MRI OF THE LUMBAR SPINE WITHOUT IV CONTRAST: Date: 06/08/2020 INDICATION: History of left hip pain, radiculopathy, and gait instability. COMPARISON: None. TECHNIQUE: Multiplanar, multisequence MR images were obtained of the lumbar spine without IV contrast. No radiog raphic or MR comparisons are available. FINDINGS: There is mild Type I Modic end plate degenerative\e change at L5-S1. There is Type II Modic end plate degenerative changes seen at L3-4. Conus is seen to terminate at approximately L1. Visualized aspect s of the retroperitoneum and paravertebral soft tissues are unremarkable appearing. No acute fracture is evident. At L5-S1, there is an asymmetric to the left broad based disc bulge with mild facet joint degenerativ e change and loss of disc space height inducing moderate to severe left and mild right neural foramin al narrowing. At L4-5, there is a broad based bulge with a superimposed left paracentral disc protrusion producing severe narrowing of the subarticular left lateral recess with probable impingement of the traversing left L5 nerve root. This is best seen on image 32 of series 6, and image 12 of series 3. The broad ba sed disc bulge and facet hypertrophy in addition to loss of disc space height induces mild right and moderate left neural foraminal narrowing. The broad based bulge, facet hypertrophy, and ligamentum fl avum hypertrophy does induce mild central canal narrowing at this level. At L3-4, there is a broad based disc osteophyte complex with loss of disc space height and facet join t degenerative change inducing moderate right and mild to moderate left neural foraminal narrowing. T he broad based bulge, facet hypertrophy, and ligamentum flavum hypertrophy does induce mild central c anal narrowing at this level. At L2-3, there is a broad based bulge with facet hypertrophic inducing mild left neural foraminal yoselin rowing. At L2-3, there is a broad based bulge without appreciable central canal or neural foraminal narrowing . At T12-L1, there is no appreciable central canal or neural foraminal narrowing. IMPRESSION: 1. Moderate to severe lumbar spondylosis. 2. Broad based bulge with superimposed left paracentral disc protrusion at L4-5 induces severe narro wing of the left lateral recess with impingement of the traversing left L5 nerve root. 3. Prominent neural foraminal narrowing at L3-4 through L5-S1. 4. Mild central canal narrowing at L4-5 and at L3-4. POS: [facility]
--- NOTE | 2020-06-08 15:44 | PDOC.HOSPP ---
- Subjective Encounter Date: 06/08/20 Encounter Time: 13:10 Subjective: Mr. Trinh complains of a severe "pain episode" last night at around 2:00 AM. He said that the pain felt like he was being "stabbed in the back and neck." The pain was mostly located on his bilateral neck, front of chest, and back of neck. He said the pain would come on in waves, and he rated his pain as a "10+." During this episode, morphine did not help manage his pain. He was able to eventually fall asleep despite the pain, and when he woke up, he mostly complained of feeling sore in the area that he experienced the pain earlier. He was given toradol which helped manage this soreness. Before this episode, he was given flexeril and xanax which helped his muscles relax. He does not want to have another one of these episodes and is unsure of what medication to use during these episodes since the morphine did not work well. He discussed that his hip issues are not necessarily pain, but an occasional jolt from his hip down his leg. We discussed injections for pain in his back for his herniated disc, but he said that he does not really have pain so he does not think he needs these. He still wants to go to [facility] for rehab, but he is starting to get frustrated with waiting. He is considering potentially using an inpatient facility in [place] if [facility] rejects him or takes too long to accept him. He is also considering outpatient therapy but we discussed how this would not be advised due to his difficulty using his hands and lifting them up - Objective Vital Signs & Weight: Vital Signs (12 hours) Temp Pulse Resp BP Pulse Ox 06/08/20 08:45 98 06/08/20 07:15 98.1 F 78 20 138/89 98 06/08/20 06:20 97.9 F 77 18 126/85 98 Weight Admit Weight 203 lb 6.4 oz Weight 202 lb 13.204 oz Most Recent Monitor Data Heart Rate from ECG 82 NIBP 145/91 NIBP BP-Mean 109 Respiration from ECG 14 SpO2 100 I&O: 06/07/20 06/08/20 06/09/20 06:59 06:59 06:59 Intake Total 1220 320 720 Output Total 2960 561 3080 Balance -4245 -754 -239 Result Diagrams: 06/08/20 05:05 06/08/20 05:05 Additional Labs: Accuchecks 06/08/20 06/07/20 06/07/20 11:17 19:19 16:33 POC Glucose 111 H 106 H 90 Radiology Reviewed by me: Yes Hospitalist ROS - Review of Systems Constitutional: reports: weakness. denies: fever, chills Respiratory: denies: cough, shortness of breath Cardiovascular: denies: chest pain, palpitations Gastrointestinal: denies: nausea, vomiting Musculoskeletal: reports: neck pain, shoulder pain. denies: leg pain, other (hip pain) Neurological: reports: weakness - Medication Medications: Active Medications Generic Name Dose Route Start Last Admin Trade Name Freq PRN Reason Stop Dose Admin Acetaminophen 650 mg 05/27/20 11:04 06/06/20 09:16 Acetaminophen 325 Mg Tab PO 650 mg Q4H PRN Administration Headache/Fever/Mild Pain (1-3) Amlodipine Besylate 5 mg 06/02/20 09:00 06/08/20 09:21 Amlodipine 5 Mg Tab PO 5 mg DAILY VENKATESH Administration Aspirin 81 mg 05/28/20 09:00 06/08/20 09:03 Aspirin 81 Mg Enteric Coated Tablet PO 81 mg DAILY VENKATESH Administration Atorvastatin Calcium 40 mg 06/02/20 21:00 06/07/20 20:49 Atorvastatin Calcium 40 Mg Tab PO 40 mg HS VENKATESH Administration Bupropion HCl 150 mg 05/30/20 21:00 06/08/20 09:03 Bupropion 150 Mg Sr Tab PO 150 mg BID VENKATESH Administration Cyanocobalamin 1,000 mcg 05/29/20 09:00 06/08/20 09:03 Cyanocobalamin (Vitamin B-12) 1,000 Mcg Tab PO 1,000 mcg DAILY VENKATESH Administration Cyclobenzaprine HCl 5 mg 06/07/20 15:52 06/07/20 23:57 Cyclobenzaprine 10 Mg Tab PO 5 mg TIDPRN PRN Administration Muscle Spasm Docusate Sodium 100 mg 06/03/20 21:00 06/08/20 09:04 Docusate 100 Mg Cap PO 100 mg BID VENKATESH Administration Enoxaparin Sodium 40 mg 05/27/20 21:00 06/07/20 20:49 Enoxaparin Sodium 40 Mg/0.4 Ml Syringe SC 40 mg HS VENKATESH Administration Escitalopram Oxalate 20 mg 05/31/20 09:00 06/08/20 09:04 Escitalopram Oxalate 20 Mg Tablet PO 20 mg DAILY VENKATESH Administration Folic Acid 1 mg 05/29/20 09:00 06/08/20 09:04 Folic Acid 1 Mg Tab PO 1 mg DAILY VENKATESH Administration Gabapentin 100 mg 06/07/20 21:00 06/08/20 09:05 Gabapentin 100 Mg Cap PO 100 mg TID VENKATESH Administration Insulin Human Lispro 0 units 05/27/20 11:04 06/01/20 20:32 Humalog 300 Units/3 Ml Vial SC 2 unit .MILD SLIDING SCALE PRN Administration Mild Correctional Scale Labetalol HCl 20 mg 05/28/20 01:37 05/29/20 03:39 Labetalol Hcl 100 Mg/20 Ml Vial SLOW IVP 20 mg Q4H PRN Administration SBP > 180 and HR >/= 70 Levetiracetam 500 mg 05/29/20 21:00 06/08/20 09:05 Levetiracetam 500 Mg Tab PO 500 mg BID VENKATESH Administration Lisinopril 40 mg 06/02/20 09:00 06/08/20 09:03 Lisinopril 20 Mg Tab PO 40 mg DAILY VENKATESH Administration Metformin HCl 500 mg 06/02/20 09:00 06/08/20 09:04 Metformin 500 Mg Tab PO 500 mg DAILY VENKATESH Administration Nicotine 21 mg 06/01/20 09:00 06/08/20 09:22 Nicotine 21 Mg Patch TD Not Given DAILY VENKATESH Sodium Chloride 10 ml 05/27/20 21:00 06/08/20 09:22 Flush - Normal Saline 10 Ml Syringe IVF 10 ml Q12HR VENKATESH Administration - Exam General Appearance: NAD, awake alert Heart: RRR, no murmur Respiratory: CTAB, no wheezes, no rales, no ronchi Gastrointestinal: soft, non-tender, normal bowel sounds Neurological: no new deficit Musculoskeletal - other findings: Decreased strength in L and R upper extremeties. Hosp A/P - Plan Carotid doppler: Limited exam, but possible left internal carotid artery s tenosis CT brain: left scalp hematoma CT cervical spine: prominent degenerative changes Chest X ray: no acute findings MRI brain: small focus of restricted diffusion involving left temporal lobe Carotid dopplers: left internal carotid artery is not visualized. CTA head and neck: no significant stenosis ECHO: EF 55-60%, mild MR, mild TR MRI cervical spine: hematoma throughout retropharyngeal space of entire cervical spine and upper thoracic spine with possible tear of longitudinal ligament. 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 CT brain negative, MRI shows left temporal lobe stroke . CTA head and neck unremarkable, carotid doppler showed possible left ICA stenosis - EEG was normal. NEurology started on keppra. Recommended continuing this since high risk for seizures. - continue aspirin and statin - ECHO showed no thrombus - 06/08: MRI brain showed that the previous restricted diffusion has resolved. Stable left frontal scalp hematoma. 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 Neurosurgery consulted, was considered for surgery but patient wants to exhaust all conservative options first - he will be transferred to an inpatient rehab facility in [place] when bed is available; will consider inpatient rehab in [place] if rejected from [facility] Lumbar spinal spondylosis with L5 nerve impingement - patient reports gait unsteadiness while ambulating. Feels an occasional "shooting" down his left leg. MRI on 02/06 showed moderate to severe lumbar sponylosis. A L4-5 disc protrusion that induces severe narrowing of left lateral recess with impingement of the transversing L5 nerve root. Neural foraminal narrowing and mild central canal narrowing also present. Patient did not want pain injections so no current further management. -Left hip x-ray normal Retropharyngeal space hematoma -stable, no intervention per neurosurgery since not impinging on spine - possibly from high doses of aspirin patient was taking at home? Delirium - resolved - possibly from concussion from head trauma. EEG negative, does have mild stroke , not getting sedatives. Blood culture positive 1/2 for alpha strep, l ikely contaminant. UA negative, chest X ray normal Possible BENJAMÍN - patient was noted to be snoring heavily while on stroke floor, consider outpatient workup S/p fall - continue with PT Anemia - Hb 12.6 Leukocytosis- resolved - WBC 10.1 - UA and chest X ray normal on admission Dispo: pending placement at inpatient rehab DVT prophylaxis: lovenox Code status: full code Attending attestation: I saw and examined patient with the medical student and agree with physical exam findings listed above. Patient still has bilateral UE weakness and some lower extremity weakness while standing. Reflexes brisk in lower extremities, hypoactive in upper extremities. Denies left hip pain today. We are still waiting on [facility] to get back to us whether they will accept him
[2020-06-08] MEDS: Zolpidem Tartrate 5 MG TAB PO PRN (21:14)
[2020-06-08] MEDS: Atorvastatin Calcium 40 MG TAB PO SCH (21:14)
[2020-06-08] MEDS: Melatonin 3 MG TAB PO SCH (21:14)
[2020-06-08] MEDS: Enoxaparin Sodium 40 MG/0.4 ML SYRINGE SC SCH (21:14)
[2020-06-09] MEDS: Ketorolac Tromethamine 30 MG/ML VIAL IVP PRN ×2 (03:26→23:34)
[2020-06-09 06:21] LABS: Band 3 % (5-11); Eosinophils 4 % (0-10); Hemoglobin 12.8 g/dL (14.0-18.0); Lymphocytes 24 % (21-51); MDiff Complete? YES; Mean Corpuscular HGB CONC 33.9 g/dL (32.0-36.0); Mean Corpuscular Hemoglobin 33.3 pg (27.0-31.0); Mean Corpuscular Volume 98.2 fL (78.0-98.0); Mean Platelet Volume 6.2 fL (7.4-10.4); Monocytes 9 % (0-10); Neutrophil 60 % (42-75); Platelet Count 540 thou/uL (130-400); RBC Distribution Width 12.8 % (11.5-14.5); Red Blood Cell (RBC) Count 3.84 mill/uL (4.70-6.10); White Blood Cell (WBC) Count 11.3 thou/uL (4.8-10.8)
[2020-06-09 06:58] LABS: Anion Gap 16 mmol/L (10-20); BUN (Urea Nitrogen) 26 mg/dL (8.4-25.7); Calc. Creatinine Clearance 108 mL/min (70-130); Calcium 9.2 mg/dL (7.8-10.44); Carbon Dioxide 22 mmol/L (23-31); Chloride 107 mmol/L (98-107); Estimated GFR-MDRD 84; Glucose 87 mg/dL (80-115); Potassium 4.3 mmol/L (3.5-5.1); Sodium 141 mmol/L (136-145)
[2020-06-09] MEDS: Bupropion 150 MG SR TAB PO SCH ×2 (09:03→22:19)
[2020-06-09] MEDS: Aspirin 81 mg Enteric Coated Tablet PO SCH (09:03)
[2020-06-09] MEDS: Folic Acid 1 MG TAB PO SCH (09:03)
[2020-06-09] MEDS: Escitalopram Oxalate 20 mg Tablet PO SCH (09:04)
[2020-06-09] MEDS: Amlodipine 5 MG TAB PO SCH (09:04)
[2020-06-09] MEDS: levETIRAcetam 500 MG TAB PO SCH ×2 (09:04→22:20)
[2020-06-09] MEDS: Cyanocobalamin (Vitamin B-12) 1,000 MCG TAB PO SCH (09:04)
[2020-06-09] MEDS: Lisinopril 20 MG TAB PO SCH (09:04)
[2020-06-09] MEDS: Docusate 100 MG CAP PO SCH ×2 (09:04→22:21)
[2020-06-09] MEDS: Gabapentin 100 MG CAP PO SCH ×3 (09:04→22:19)
[2020-06-09] MEDS: metFORMIN 500 MG TAB PO SCH (09:05)
[2020-06-09] MEDS: Nicotine 21 MG PATCH TD SCH (09:05)
--- NOTE | 2020-06-09 15:45 | PDOC.HOSPP ---
- Subjective Encounter Date: 06/09/20 Encounter Time: 11:00 Subjective: Upper extremity weakness: Mr. Meyers is, overall, feeling better today. He noticed that his ability to move his hands and arms is improving. He does not report any pain episodes similar to what he had yesterday; any pain or soreness that he has is well controlled with toradol. Dysuria: His only complaint today is some dysuria and burning with urination. His nurse noted some sediment and blood in his catheter today. He has had the catheter in since he arrived due to his inability to move his arms and hands. When discussing the catheter, Mr. Meyers said that he feels that he would be able to manage urinating either on his own or with some assistance, so he feels comfortable having the catheter removed. Left hip pain: patient states this has mostly resolved and has not reoccurred. He states pain management specialists spoke to him yesterday and did not want to offer any pain injections. Patient also states he would have to be "knocked out" prior to even considering steroid injection. We discussed how [facility] has approved him, we are just currently waiting for insurance approval. - Objective Vital Signs & Weight: Vital Signs (12 hours) Temp Pulse Resp BP Pulse Ox 06/09/20 12:00 98.1 F 91 18 117/87 95 06/09/20 09:00 95 Weight Admit Weight 203 lb 6.4 oz Weight 203 lb 0.732 oz Most Recent Monitor Data Heart Rate from ECG 82 NIBP 145/91 NIBP BP-Mean 109 Respiration from ECG 14 SpO2 100 I&O: 06/08/20 06/09/20 06/10/20 06:59 06:59 06:59 Intake Total 320 720 Output Total 800 1650 150 Balance -480 -930 -150 Result Diagrams: 06/09/20 05:23 06/09/20 05:23 Additional Labs: Accuchecks 06/09/20 06/08/20 11:16 16:14 POC Glucose 121 H 134 H Hospitalist ROS - Review of Systems Constitutional: denies: fever, chills, sweats Respiratory: denies: cough, shortness of breath Cardiovascular: denies: chest pain Gastrointestinal: denies: nausea, vomiting, abdominal pain Genitourinary: reports: dysuria, hematuria. denies: frequency Musculoskeletal: denies: neck pain, shoulder pain, arm pain, back pain, leg pain, other (hip pain) Neurological: reports: weakness (in UE). denies: numbness - Medication Medications: Active Medications Generic Name Dose Route Start Last Admin Trade Name Freq PRN Reason Stop Dose Admin Acetaminophen 650 mg 05/27/20 11:04 06/06/20 09:16 Acetaminophen 325 Mg Tab PO 650 mg Q4H PRN Administration Headache/Fever/Mild Pain (1-3) Amlodipine Besylate 5 mg 06/02/20 09:00 06/09/20 09:04 Amlodipine 5 Mg Tab PO 5 mg DAILY VENKATESH Administration Aspirin 81 mg 05/28/20 09:00 06/09/20 09:03 Aspirin 81 Mg Enteric Coated Tablet PO 81 mg DAILY VENKATESH Administration Atorvastatin Calcium 40 mg 06/02/20 21:00 06/08/20 21:14 Atorvastatin Calcium 40 Mg Tab PO 40 mg HS VENKATESH Administration Bupropion HCl 150 mg 05/30/20 21:00 06/09/20 09:03 Bupropion 150 Mg Sr Tab PO 150 mg BID VENKATESH Administration Cyanocobalamin 1,000 mcg 05/29/20 09:00 06/09/20 09:04 Cyanocobalamin (Vitamin B-12) 1,000 Mcg Tab PO 1,000 mcg DAILY VENKATESH Administration Cyclobenzaprine HCl 5 mg 06/07/20 15:52 06/07/20 23:57 Cyclobenzaprine 10 Mg Tab PO 5 mg TIDPRN PRN Administration Muscle Spasm Docusate Sodium 100 mg 06/03/20 21:00 06/09/20 09:04 Docusate 100 Mg Cap PO 100 mg BID VENKATESH Administration Enoxaparin Sodium 40 mg 05/27/20 21:00 06/08/20 21:14 Enoxaparin Sodium 40 Mg/0.4 Ml Syringe SC 40 mg HS VENKATESH Administration Escitalopram Oxalate 20 mg 05/31/20 09:00 06/09/20 09:04 Escitalopram Oxalate 20 Mg Tablet PO 20 mg DAILY VENKATESH Administration Folic Acid 1 mg 05/29/20 09:00 06/09/20 09:03 Folic Acid 1 Mg Tab PO 1 mg DAILY VENKATESH Administration Gabapentin 100 mg 06/07/20 21:00 06/09/20 09:04 Gabapentin 100 Mg Cap PO 100 mg TID VENKATESH Administration Insulin Human Lispro 0 units 05/27/20 11:04 06/01/20 20:32 Humalog 300 Units/3 Ml Vial SC 2 unit .MILD SLIDING SCALE PRN Administration Mild Correctional Scale Ketorolac Tromethamine 15 mg 06/08/20 13:22 06/09/20 03:26 Ketorolac Tromethamine 30 Mg/Ml Vial IVP 06/11/20 09:14 15 mg Q6H PRN Administration Mild-Moderate Pain (1-5) Labetalol HCl 20 mg 05/28/20 01:37 05/29/20 03:39 Labetalol Hcl 100 Mg/20 Ml Vial SLOW IVP 20 mg Q4H PRN Administration SBP > 180 and HR >/= 70 Levetiracetam 500 mg 05/29/20 21:00 06/09/20 09:04 Levetiracetam 500 Mg Tab PO 500 mg BID VENKATESH Administration Lisinopril 40 mg 06/02/20 09:00 06/09/20 09:04 Lisinopril 20 Mg Tab PO 40 mg DAILY VENKATESH Administration Melatonin 6 mg 06/08/20 21:00 06/08/20 21:14 Melatonin 3 Mg Tab PO 6 mg HS VENKATESH Administration Metformin HCl 500 mg 06/02/20 09:00 06/09/20 09:05 Metformin 500 Mg Tab PO 500 mg DAILY VENKATESH Administration Nicotine 21 mg 06/01/20 09:00 06/09/20 09:05 Nicotine 21 Mg Patch TD Not Given DAILY VENKATESH Sodium Chloride 10 ml 05/27/20 21:00 06/09/20 09:05 Flush - Normal Saline 10 Ml Syringe IVF 10 ml Q12HR VENKATESH Administration Zolpidem Tartrate 5 mg 06/08/20 13:21 06/08/20 21:14 Zolpidem Tartrate 5 Mg Tab PO 5 mg HSPRN PRN Administration Insomnia - Exam General Appearance: NAD, awake alert Heart: RRR, no murmur, no gallops, no rubs Respiratory: CTAB, no wheezes, no rales, no ronchi Gastrointestinal: soft, non-tender, non-distended, normal bowel sounds Extremities: no edema Skin: normal turgor, no lesions, no rashes Neurological: normal sensation to touch, no weakness (in lower extremities) Neurological - other findings: weakness in upper extremities . Hyporeflexia on right arm Musculoskeletal: normal strength (in lower extremities) Musculoskeletal - other findings: decreased strength in upper extremities Psychiatric: normal affect, normal behavior, A&O x 3 Hosp A/P - Plan Carotid doppler: Limited exam, but possible left internal carotid artery stenosis CT brain: left scalp hematoma CT cervical spine: prominent degenerative changes Chest X ray: no acute findings MRI brain: small focus of restricted diffusion involving left temporal lobe Carotid dopplers: left internal carotid artery is not visualized. CTA head and neck: no significant stenosis ECHO: EF 55-60%, mild MR, mild TR MRI cervical spine: hematoma throughout retropharyngeal space of entire cervical spine and upper thoracic spine with possible tear of longitudinal ligament. 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 CT brain negative, MRI shows left temporal lobe stroke . CTA head and neck unremarkable, carotid doppler showed possible left ICA stenosis - EEG was normal. NEurology started on keppra. Recommended continuing this since high risk for seizures. - continue aspirin and statin - ECHO showed no thrombus - 06/08: MRI brain showed that the previous restricted diffusion has resolved. Stable left frontal scalp hematoma. Leukocytosis/Dysuria- rule out UTI - WBC 11.3 , patient reported dysuria. - UA and chest X ray normal on admission. Repeat UA ordered. 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 Neurosurgery consulted, was considered for surgery but patient wants to exhaust all conservative options first - he will be transferred to an inpatient rehab facility in [place] when bed is available; will consider inpatient rehab in [place] if rejected from [facility] Lumbar spinal spondylosis with L5 nerve impingement - patient reports gait unsteadiness while ambulating. Feels an occasional "shooting" down his left leg. Left hip x-ray normal MRI on 02/06 showed moderate to severe lumbar spondylosis. A L4-5 disc protrusion that induces severe narrowing of left lateral recess with impingement of the transversing L5 nerve root. - Patient did not want pain injections, continue with PT Retropharyngeal space hematoma -stable, no intervention per neurosurgery since not impinging on spine - possibly from high doses of aspirin patient was taking at home? Delirium - resolved - possibly from concussion from head trauma. EEG negative, does have mild stroke , not getting sedatives. Blood culture positive 1/2 for alpha strep, likely contaminant. UA negative, chest X ray normal Possible BENJAMÍN - patient was noted to be snoring heavily while on stroke floor, consider outpatient workup S/p fall - continue with PT Anemia - Hb 12.8 Dispo: pending placement at inpatient rehab ([facility]) DVT prophylaxis: lovenox Code status: full code Attending attestation: I saw and examined patient with the medical student and agree with physical exam findings listed above. Patient reported dysuria, improved range of motion in upper extremities. Exam unchanged except diminished reflexes on right arm. Narayan catheter was dark orange in color Plan: will remove narayan catheter today. Still pending on insurance approval for rehab. Continue with PT
[2020-06-09 16:49] LABS: Bacteria/HPF None Seen HPF (None Seen); Bilirubin Negative (Negative); Blood, Urine 3+ (Negative); Clarity Turbid (Clear); Glucose, Urine (Dipstick) Normal (Negative); Ketone, Urine Negative (Negative); Leukocyte 25 Leu/uL (Negative); Nitrite Negative (Negative); Protein, Urine (Dipstick) 30 mg/dL (Neg-Trace); RBC/HPF Greater than 50 HPF (0-3); Specific Gravity, Urine 1.016 (1.002-1.036); Squamous Epithelial 0-3 HPF (0-3); Urobilinogen Normal mg/dL (Less than 2)
[2020-06-09 16:50] LABS: Urine Culture Reflex Yes Yes
[2020-06-09] MEDS: Melatonin 3 MG TAB PO SCH (22:20)
[2020-06-09] MEDS: Atorvastatin Calcium 40 MG TAB PO SCH (22:21)
[2020-06-09] MEDS: Enoxaparin Sodium 40 MG/0.4 ML SYRINGE SC SCH (22:21)
[2020-06-09] MEDS: Zolpidem Tartrate 5 MG TAB PO PRN (22:39)
[2020-06-10 06:20] LABS: Hemoglobin 13.2 g/dL (14.0-18.0); Mean Corpuscular HGB CONC 33.8 g/dL (32.0-36.0); Mean Corpuscular Hemoglobin 32.8 pg (27.0-31.0); Platelet Count 557 thou/uL (130-400); RBC Distribution Width 12.7 % (11.5-14.5); Red Blood Cell (RBC) Count 4.03 mill/uL (4.70-6.10); White Blood Cell (WBC) Count 10.4 thou/uL (4.8-10.8)
[2020-06-10 06:21] LABS: Anion Gap 15 mmol/L (10-20); BUN (Urea Nitrogen) 24 mg/dL (8.4-25.7); Band 3 % (5-11); Calc. Creatinine Clearance 116 mL/min (70-130); Calcium 9.7 mg/dL (7.8-10.44); Carbon Dioxide 22 mmol/L (23-31); Chloride 107 mmol/L (98-107); Eosinophils 2 % (0-10); Estimated GFR-MDRD Greater than 90; Glucose 99 mg/dL (80-115); Lymphocytes 19 % (21-51); MDiff Complete? YES; Monocytes 11 % (0-10); Neutrophil 63 % (42-75); Platelet Morphology Comment Appears Increased; Potassium 4.9 mmol/L (3.5-5.1); Reactive Lymphocytes 2 % (0-10); Sodium 139 mmol/L (136-145)
[2020-06-10] MEDS: Escitalopram Oxalate 20 mg Tablet PO SCH (08:37)
[2020-06-10] MEDS: Docusate 100 MG CAP PO SCH ×2 (08:37→20:28)
[2020-06-10] MEDS: Folic Acid 1 MG TAB PO SCH (08:37)
[2020-06-10] MEDS: Gabapentin 100 MG CAP PO SCH ×3 (08:37→20:28)
[2020-06-10] MEDS: Aspirin 81 mg Enteric Coated Tablet PO SCH (08:37)
[2020-06-10] MEDS: Cyanocobalamin (Vitamin B-12) 1,000 MCG TAB PO SCH (08:38)
[2020-06-10] MEDS: levETIRAcetam 500 MG TAB PO SCH ×2 (08:38→20:29)
[2020-06-10] MEDS: metFORMIN 500 MG TAB PO SCH (08:38)
[2020-06-10] MEDS: Amlodipine 5 MG TAB PO SCH (08:38)
[2020-06-10] MEDS: Lisinopril 20 MG TAB PO SCH (08:38)
[2020-06-10] MEDS: Nicotine 21 MG PATCH TD SCH (08:39)
[2020-06-10] MEDS: Cyclobenzaprine 10 MG TAB PO PRN ×3 (08:47→23:16)
[2020-06-10] MEDS: Bupropion 150 MG SR TAB PO SCH ×2 (08:47→20:28)
[2020-06-10] MEDS: Ketorolac Tromethamine 30 MG/ML VIAL IVP PRN ×2 (09:24→21:53)
--- NOTE | 2020-06-10 12:50 | PDOC.HOSPP ---
- Subjective Encounter Date: 06/10/20 Encounter Time: 10:00 Subjective: The patient had an episode of severe stabbing left shoulder pain this morning. He received flexeril, gabapentin at 8:30 am and then toradol at 9:00 am. The patient's pain resolved twenty minutes after receiving toradol He is very anxious of having that type of pain again and does not want it to happen. I discussed changing his flexeril to scheduled and he was agreeable to this - Objective Vital Signs & Weight: Vital Signs (12 hours) Temp Pulse Resp BP BP Pulse Ox 06/10/20 08:46 97.9 F 84 20 125/80 96 06/10/20 08:38 82 125/80 06/10/20 08:00 96 Weight Admit Weight 203 lb 6.4 oz Weight 202 lb 9.677 oz Most Recent Monitor Data Heart Rate from ECG 82 NIBP 145/91 NIBP BP-Mean 109 Respiration from ECG 14 SpO2 100 I&O: 06/09/20 06/10/20 06/11/20 06:59 06:59 06:59 Intake Total 720 1520 990 Output Total 1650 400 Balance -930 1120 990 Result Diagrams: 06/10/20 05:47 06/10/20 05:47 Additional Labs: Accuchecks 06/10/20 06/09/20 06/09/20 04:35 20:46 17:11 POC Glucose 90 98 142 H Hospitalist ROS - Review of Systems Constitutional: denies: fever, chills - Medication Medications: Active Medications Generic Name Dose Route Start Last Admin Trade Name Freq PRN Reason Stop Dose Admin Acetaminophen 650 mg 05/27/20 11:04 06/06/20 09:16 Acetaminophen 325 Mg Tab PO 650 mg Q4H PRN Administration Headache/Fever/Mild Pain (1-3) Amlodipine Besylate 5 mg 06/02/20 09:00 06/10/20 08:38 Amlodipine 5 Mg Tab PO 5 mg DAILY VENKATESH Administration Aspirin 81 mg 05/28/20 09:00 06/10/20 08:37 Aspirin 81 Mg Enteric Coated Tablet PO 81 mg DAILY VENKATESH Administration Atorvastatin Calcium 40 mg 06/02/20 21:00 06/09/20 22:21 Atorvastatin Calcium 40 Mg Tab PO 40 mg HS VENKATESH Administration Bupropion HCl 150 mg 05/30/20 21:00 06/10/20 08:47 Bupropion 150 Mg Sr Tab PO 150 mg BID VENKATESH Administration Cyanocobalamin 1,000 mcg 05/29/20 09:00 06/10/20 08:38 Cyanocobalamin (Vitamin B-12) 1,000 Mcg Tab PO 1,000 mcg DAILY VENKATESH Administration Cyclobenzaprine HCl 5 mg 06/07/20 15:52 06/10/20 08:47 Cyclobenzaprine 10 Mg Tab PO 5 mg TIDPRN PRN Administration Muscle Spasm Docusate Sodium 100 mg 06/03/20 21:00 06/10/20 08:37 Docusate 100 Mg Cap PO 100 mg BID VENKATESH Administration Enoxaparin Sodium 40 mg 05/27/20 21:00 06/09/20 22:21 Enoxaparin Sodium 40 Mg/0.4 Ml Syringe SC 40 mg HS VENKATESH Administration Escitalopram Oxalate 20 mg 05/31/20 09:00 06/10/20 08:37 Escitalopram Oxalate 20 Mg Tablet PO 20 mg DAILY VENKATESH Administration Folic Acid 1 mg 05/29/20 09:00 06/10/20 08:37 Folic Acid 1 Mg Tab PO 1 mg DAILY VENKATESH Administration Gabapentin 100 mg 06/07/20 21:00 06/10/20 08:37 Gabapentin 100 Mg Cap PO 100 mg TID VENKATESH Administration Insulin Human Lispro 0 units 05/27/20 11:04 06/01/20 20:32 Humalog 300 Units/3 Ml Vial SC 2 unit .MILD SLIDING SCALE PRN Administration Mild Correctional Scale Ketorolac Tromethamine 15 mg 06/08/20 13:22 06/10/20 09:24 Ketorolac Tromethamine 30 Mg/Ml Vial IVP 06/11/20 09:14 15 mg Q6H PRN Administration Mild-Moderate Pain (1-5) Labetalol HCl 20 mg 05/28/20 01:37 05/29/20 03:39 Labetalol Hcl 100 Mg/20 Ml Vial SLOW IVP 20 mg Q4H PRN Administration SBP > 180 and HR >/= 70 Levetiracetam 500 mg 05/29/20 21:00 06/10/20 08:38 Levetiracetam 500 Mg Tab PO 500 mg BID VENKATESH Administration Lisinopril 40 mg 06/02/20 09:00 06/10/20 08:38 Lisinopril 20 Mg Tab PO 40 mg DAILY VENKATESH Administration Melatonin 6 mg 06/08/20 21:00 06/09/20 22:20 Melatonin 3 Mg Tab PO 6 mg HS VENKATESH Administration Metformin HCl 500 mg 06/02/20 09:00 06/10/20 08:38 Metformin 500 Mg Tab PO 500 mg DAILY VENKATESH Administration Nicotine 21 mg 06/01/20 09:00 06/10/20 08:39 Nicotine 21 Mg Patch TD Not Given DAILY VENKATESH Sodium Chloride 10 ml 05/27/20 21:00 06/10/20 08:39 Flush - Normal Saline 10 Ml Syringe IVF 10 ml Q12HR VENKATESH Administration Zolpidem Tartrate 5 mg 06/08/20 13:21 06/09/20 22:39 Zolpidem Tartrate 5 Mg Tab PO 5 mg HSPRN PRN Administration Insomnia - Exam General Appearance: NAD, awake alert Eye: PERRL, anicteric sclera ENT: normocephalic atraumatic, no oropharyngeal lesions Neck: no JVD Heart: RRR, no murmur, no gallops, no rubs Respiratory: CTAB, no wheezes, no rales, no ronchi Gastrointestinal: soft, non-tender, non-distended, normal bowel sounds Extremities: no cyanosis, no clubbing, no edema Extremities - other findings: difficultly raising left arm. RUE weakness as well. Full ROM of legs Skin: normal turgor, no lesions, no rashes Neurological: cranial nerve grossly intact, normal sensation to touch, no focal deficits Musculoskeletal: normal tone, normal strength, no muscle wasting Psychiatric: normal affect, normal behavior, A&O x 3 Hosp A/P - Plan Carotid doppler: Limited exam, but possible left internal carotid artery stenosis CT brain: left scalp hematoma CT cervical spine: prominent degenerative changes Chest X ray: no acute findings MRI brain: small focus of restricted diffusion involving left temporal lobe Carotid dopplers: left internal carotid artery is not visualized. CTA head and neck: no significant stenosis ECHO: EF 55-60%, mild MR, mild TR MRI cervical spine: hematoma throughout retropharyngeal space of entire cervical spine and upper thoracic spine with possible tear of longitudinal ligament. 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 CT brain negative, MRI shows left temporal lobe stroke . CTA head and neck unremarkable, carotid doppler showed possible left ICA stenosis - EEG was normal. NEurology started on keppra. Recommended continuing this since high risk for seizures. - continue aspirin and statin - ECHO showed no thrombus - 06/08: MRI brain showed that the previous restricted diffusion has resolved. Stable left frontal scalp hematoma. - continue with physical therapy, patient is pending bed at rehab Leukocytosis/Dysuria- rule out UTI - WBC 11.3 , patient reported dysuria. - UA and chest X ray normal on admission. Repeat UA was positive, catheter removed 06/09. Pending urine culture Cervical DJD with bilateral upper extremity weakness - MRI cervical spine showing high grade DJD . Neurosurgery consulted, was considered for surgery but patient wants to exhaust all conservative options first - he is still awaiting placement - will continue gabapentin 100 mg tid. Will change flexeril to scheduled Lumbar spinal spondylosis with L5 nerve impingement - patient reports gait unsteadiness while ambulating. Feels an occasional "shooting" down his left leg. Left hip x-ray normal MRI on 02/06 showed moderate to severe lumbar spondylosis. A L4-5 disc protrusion that induces severe narrowing of left lateral recess with impingement of the transversing L5 nerve root. - Patient did not want pain injections, continue with PT Retropharyngeal space hematoma -stable, no intervention per neurosurgery since not impinging on spine - possibly from high doses of aspirin patient was taking at home? Delirium - resolved - possibly from concussion from head trauma. EEG negative, does have mild stroke , not getting sedatives. Blood culture positive /2 for alpha strep, likely contaminant. UA negative, chest X ray normal Possible BENJAMÍN - patient was noted to be snoring heavily while on stroke floor, consider outpatient workup S/p fall - continue with PT Anemia - Hb 13.2 Dispo: pending placement at inpatient rehab ([facility]) DVT prophylaxis: lovenox Code status: full code
[2020-06-10] MEDS: Enoxaparin Sodium 40 MG/0.4 ML SYRINGE SC SCH (20:28)
[2020-06-10] MEDS: Atorvastatin Calcium 40 MG TAB PO SCH (20:28)
[2020-06-10 20:31] LABS: SARS-CoV-2 MS2 Positive; SARS-CoV-2 N Gene Negative; SARS-CoV-2 S Gene Negative; SARS-CoV-2 by NAA Not Detected (NotDetected); SARS-CoV-2 orf1ab Negative
[2020-06-10] MEDS: Melatonin 3 MG TAB PO SCH (23:15)
[2020-06-10] MEDS: Zolpidem Tartrate 5 MG TAB PO PRN (23:15)
[2020-06-11] MEDS: Acetaminophen 325 MG TAB PO PRN (03:14)
[2020-06-11 06:04] LABS: Anion Gap 14 mmol/L (10-20); BUN (Urea Nitrogen) 20 mg/dL (8.4-25.7); Calc. Creatinine Clearance 126 mL/min (70-130); Calcium 9.3 mg/dL (7.8-10.44); Carbon Dioxide 21 mmol/L (23-31); Chloride 109 mmol/L (98-107); Estimated GFR-MDRD Greater than 90; Glucose 92 mg/dL (80-115); Potassium 4.5 mmol/L (3.5-5.1); Sodium 139 mmol/L (136-145)
[2020-06-11 06:13] LABS: Band 5 % (5-11); Eosinophils 5 % (0-10); Hemoglobin 12.6 g/dL (14.0-18.0); Lymphocytes 37 % (21-51); MDiff Complete? YES; Mean Corpuscular HGB CONC 33.4 g/dL (32.0-36.0); Mean Corpuscular Hemoglobin 32.7 pg (27.0-31.0); Mean Corpuscular Volume 97.7 fL (78.0-98.0); Monocytes 7 % (0-10); Myelocyte 1 % (0-0); Neutrophil 45 % (42-75); Platelet Count 576 thou/uL (130-400); RBC Distribution Width 12.7 % (11.5-14.5); Red Blood Cell (RBC) Count 3.87 mill/uL (4.70-6.10); White Blood Cell (WBC) Count 9.5 thou/uL (4.8-10.8)
[2020-06-11] MEDS: Ketorolac Tromethamine 30 MG/ML VIAL IVP PRN (06:34)
[2020-06-11] MEDS: Folic Acid 1 MG TAB PO SCH (09:07)
[2020-06-11] MEDS: levETIRAcetam 500 MG TAB PO SCH ×2 (09:07→20:33)
[2020-06-11] MEDS: metFORMIN 500 MG TAB PO SCH (09:07)
[2020-06-11] MEDS: Cyanocobalamin (Vitamin B-12) 1,000 MCG TAB PO SCH (09:07)
[2020-06-11] MEDS: Lisinopril 20 MG TAB PO SCH (09:07)
[2020-06-11] MEDS: Bupropion 150 MG SR TAB PO SCH ×2 (09:07→20:31)
[2020-06-11] MEDS: Amlodipine 5 MG TAB PO SCH (09:08)
[2020-06-11] MEDS: Gabapentin 100 MG CAP PO SCH ×3 (09:08→20:33)
[2020-06-11] MEDS: Docusate 100 MG CAP PO SCH ×2 (09:08→20:32)
[2020-06-11] MEDS: Nicotine 21 MG PATCH TD SCH (09:08)
[2020-06-11] MEDS: Escitalopram Oxalate 20 mg Tablet PO SCH (09:08)
[2020-06-11] MEDS: Aspirin 81 mg Enteric Coated Tablet PO SCH (09:08)
--- NOTE | 2020-06-11 11:57 | CON ---
DATE OF CONSULTATION: 06/08/2020 REASON FOR CONSULTATION: Evaluate the patient for lumbar epidural steroid injection. HISTORY OF PRESENT ILLNESS: The patient is a 64-year-old male with past medical history significant for hypertension and diabetes, who was admitted on 05/28/2020 after EMS transfer following status post fall and altered mental status, he was found at home by his brother. He was admitted for acute encephalopathy and left temporal lobe stroke in addition to bilateral upper extremity weakness and debility that was diffuse. Cervical imaging revealed significant central and foraminal stenosis in the cervical spine from C3 through C7. This has been evaluated by Neurosurgery, who has recommended inpatient physical therapy followed by ACDF surgery. The patient is severely limited with function due to weakness in the upper extremities bilaterally secondary to cervical stenosis. He continues working with therapy here in the hospital to gain functional improvement and he is awaiting discharge to an inpatient rehab facility. It is likely this stenosis was significant prior to his admission and has fall with a trauma exasperated his cervical disease leading to now limitations of his upper extremities. In the course of his physical therapy during hospitalization, he reports a "twitch" of slight pain of his left lateral hip on Monday with standing and transfers while he was working with physical therapy. The pain was sharp, stabbing, rated a 5/10, localized to the left lateral hip. He initially was weak in the bilateral lower extremities upon admission, however, over the course of his time here, he has developed improvement in lower extremities. He continues to be deficit in the upper extremities. Today, he denies any weakness to lower extremities. No recent falls since his admission here to the hospital. The sharp pain in the left lateral hip subsided after few moments and has not returned. He denies any weakness to bilateral lower extremities, no radiating pain reported today. He is transferring with assist by physical therapy. He has a Bello catheter in place for bladder control with no reports of pain in the low back or lower extremities. He does report a remote history of right total hip replacement in the past and there was concern for some left hip pain and question whether his left hip was osteoarthritic causing the pain. MRI of the lumbar was performed, which revealed [id number] lumbar spondylosis with a broad-based disk bulge with superimposed left paracentral disk protrusion at L4-L5 inducing severe narrowing of the left lateral recess with impingement of traversing L5 nerve root. There was mild central canal narrowing at L4-L5 and L3-L4 as well. Our service was consulted for consideration of lumbar epidural steroid injection for his lumbar radicular pain. REVIEW OF SYSTEMS: Negative other than the pertinent positive findings in the History of Present Illness. PAST MEDICAL HISTORY: Hypertension and diabetes. PAST SURGICAL HISTORY: Positive for right total hip replacement. FAMILY HISTORY: Positive for coronary artery disease in his brother as well as hypertension. SOCIAL HISTORY: The patient lives at home with his brother. He is independent in function. 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 ALLERGIES: NO KNOWN DRUG ALLERGIES. MEDICATIONS: Reviewed per OCT. PHYSICAL EXAMINATION: VITAL SIGNS: Blood pressure is 138/89, temperature is 98.1, heart rate 78, and respirations 20. GENERAL: The patient is alert and oriented, conversational, sitting up in a chair at the bedside, no distress. HEENT: He has a large swelling and nodule to the left forehead. Eyes, PERRLA. NECK: Supple. No JVD. CARDIOVASCULAR: Regular rate and rhythm. There is edema of bilateral hands, which seems to be dependent in nature. RESPIRATORY: No respiratory distress, equal lung expansion noted. ABDOMEN: Soft. Nontender to palpation. No rebound. Nondistended. 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 There is severe bilateral upper extremity weakness that is diffuse. Sensory is diminished as well bilaterally upper extremities. Bilateral lower extremities, strength is 5/5, equal, negative straight leg bilaterally, patellar reflexes are bilaterally +3/4, bilateral diminished ankle jerks, no muscle spasms of the lumbar spine, no SI pain with palpation, no lumbar vertebral pain, no paraspinal tenderness on exam. NEUROLOGIC: He is alert and oriented x3. No tremors. DIAGNOSTIC DATA: Cervical imaging and lumbar imaging reviewed and discussed with Dr. Paz as well as labs reviewed. ASSESSMENT AND PLAN: 1. Cervical stenosis with diffuse upper extremity weakness. 2. Lumbar intervertebral disk disorder. PLAN: This is a 64-year-old male with history of recent fall, altered mental status, currently admitted awaiting discharge to inpatient rehab for severe upper extremity debility in the setting of cervical stenosis. Surgery has been recommended following inpatient therapy and stabilization of strength and endurance by Dr. Ledesma. The patient developed some mild left lateral hip pain with transfers during inpatient therapy, which was thought to be related to a lumbar radiculopathy. MRI of lumbar revealed multiple levels of foraminal narrowing in addition to a broad-based disk bulge with a superimposed left paracentral disk protrusion at L4-L5 inducing severe narrowing of the left lateral recess, which could certainly represent a left lateral hip pain and leg pain. However, upon assessment today, the patient has no pain, no weakness nor neurological deficits in the lower extremities to suggest need for any interventional treatment at this time. The patient has made it quite clear to me that he is not interested in any type of interventional injection at this time as well. We will sign off case as no interventional treatment is recommended. I have let the patient know should he develop pain in the left lower extremity associated with weakness in the future. He may benefit from lumbar epidural steroid injection for improved pain control and function. He understands and is appreciative of our recommendations. Job ID: [id number] MTDD
--- NOTE | 2020-06-11 15:50 | PDOC.HOSPP ---
- Subjective Encounter Date: 06/11/20 Encounter Time: 14:30 Subjective: Mira is feeling better today. He thinks a lot of his shoulder, back, and neck pain is due to how he was lying down in the bed. He was able to get some good sleep after he sat in the chair in his room for a while. He is also now using two or three pillows which has helped prevent the pain from occurring. The pain typically occurs in the left side of the neck radiating down the left shoulder. The toradol helped significantly with this pain, and he is willing to try PO NSAIDs instead of IV toradol. He noticed that his UE weakness and range of motion improves slightly with each day. He still has difficulty lifting his arms up to scratch his face and pick objects up.He asked again about what injury caused his UE weakness. We discussed about the spinal stenosis and that surgeons recommend inpatient rehab over surg [facility] which he was agreeable to. He was provided documentation of his MRI cervical spine and notes from neurosurgery so he will remember what was discussed He was asking why his lower extremities were weak and explained it could be combination of stroke and spinal stenosis. He states when worked with physical therapy he was told his legs were flaccid and giving out easily Discussed with him that we are still waiting on his insurance approval for [facility]. He contacted his insurance about this and will speak with his case aide about the delay. Dysuria - resolved - Objective Vital Signs & Weight: Vital Signs (12 hours) Temp Pulse Resp BP BP Pulse Ox 06/11/20 09:08 69 148/60 H 06/11/20 09:07 148/60 H 06/11/20 09:00 98 06/11/20 07:51 97.7 F 74 18 142/87 H 98 Weight Admit Weight 203 lb 6.4 oz Weight 202 lb 9.677 oz Most Recent Monitor Data Heart Rate from ECG 82 NIBP 145/91 NIBP BP-Mean 109 Respiration from ECG 14 SpO2 100 I&O: 06/10/20 06/11/20 06/12/20 06:59 06:59 06:59 Intake Total 1520 2680 Output Total 400 Balance 1120 2680 Result Diagrams: 06/11/20 05:17 06/11/20 05:17 Additional Labs: Accuchecks 06/11/20 06/10/20 06/10/20 04:13 19:35 16:42 POC Glucose 87 85 99 Hospitalist ROS - Review of Systems Constitutional: denies: fever, chills, sweats Respiratory: denies: cough, shortness of breath Cardiovascular: denies: chest pain, palpitations Gastrointestinal: denies: nausea, vomiting, abdominal pain Genitourinary: denies: dysuria Musculoskeletal: denies: neck pain, shoulder pain, arm pain, back pain, leg pain Skin: denies: rash Neurological: reports: weakness (some weakness in UE). denies: numbness - Medication Medications: Active Medications Generic Name Dose Route Start Last Admin Trade Name Freq PRN Reason Stop Dose Admin Acetaminophen 650 mg 05/27/20 11:04 06/11/20 03:14 Acetaminophen 325 Mg Tab PO 650 mg Q4H PRN Administration Headache/Fever/Mild Pain (1-3) Amlodipine Besylate 5 mg 06/02/20 09:00 06/11/20 09:08 Amlodipine 5 Mg Tab PO 5 mg DAILY VENKATESH Administration Aspirin 81 mg 05/28/20 09:00 06/11/20 09:08 Aspirin 81 Mg Enteric Coated Tablet PO 81 mg DAILY VENKATESH Administration Atorvastatin Calcium 40 mg 06/02/20 21:00 06/10/20 20:28 Atorvastatin Calcium 40 Mg Tab PO 40 mg HS VENKATESH Administration Bupropion HCl 150 mg 05/30/20 21:00 06/11/20 09:07 Bupropion 150 Mg Sr Tab PO 150 mg BID VENKATESH Administration Cyanocobalamin 1,000 mcg 05/29/20 09:00 06/11/20 09:07 Cyanocobalamin (Vitamin B-12) 1,000 Mcg Tab PO 1,000 mcg DAILY VENKATESH Administration Docusate Sodium 100 mg 06/03/20 21:00 06/11/20 09:08 Docusate 100 Mg Cap PO 100 mg BID VENKATESH Administration Enoxaparin Sodium 40 mg 05/27/20 21:00 06/10/20 20:28 Enoxaparin Sodium 40 Mg/0.4 Ml Syringe SC 40 mg HS VENKATESH Administration Escitalopram Oxalate 20 mg 05/31/20 09:00 06/11/20 09:08 Escitalopram Oxalate 20 Mg Tablet PO 20 mg DAILY VENKATESH Administration Folic Acid 1 mg 05/29/20 09:00 06/11/20 09:07 Folic Acid 1 Mg Tab PO 1 mg DAILY VENKATESH Administration Gabapentin 100 mg 06/07/20 21:00 06/11/20 09:08 Gabapentin 100 Mg Cap PO 100 mg TID VENKATESH Administration Insulin Human Lispro 0 units 05/27/20 11:04 06/01/20 20:32 Humalog 300 Units/3 Ml Vial SC 2 unit .MILD SLIDING SCALE PRN Administration Mild Correctional Scale Labetalol HCl 20 mg 05/28/20 01:37 05/29/20 03:39 Labetalol Hcl 100 Mg/20 Ml Vial SLOW IVP 20 mg Q4H PRN Administration SBP > 180 and HR >/= 70 Levetiracetam 500 mg 05/29/20 21:00 06/11/20 09:07 Levetiracetam 500 Mg Tab PO 500 mg BID VENKATESH Administration Lisinopril 40 mg 06/02/20 09:00 06/11/20 09:07 Lisinopril 20 Mg Tab PO 40 mg DAILY VENKATESH Administration Melatonin 6 mg 06/08/20 21:00 06/10/20 23:15 Melatonin 3 Mg Tab PO 6 mg HS VENKATESH Administration Metformin HCl 500 mg 06/02/20 09:00 06/11/20 09:07 Metformin 500 Mg Tab PO 500 mg DAILY VENKATESH Administration Nicotine 21 mg 06/01/20 09:00 06/11/20 09:08 Nicotine 21 Mg Patch TD Not Given DAILY VENKATESH Sodium Chloride 10 ml 05/27/20 21:00 06/11/20 09:13 Flush - Normal Saline 10 Ml Syringe IVF 10 ml Q12HR VENKATESH Administration Zolpidem Tartrate 5 mg 06/08/20 13:21 06/10/20 23:15 Zolpidem Tartrate 5 Mg Tab PO 5 mg HSPRN PRN Administration Insomnia - Exam General Appearance: NAD, awake alert Heart: RRR, no murmur, no gallops, no rubs Respiratory: CTAB, no wheezes, no rales, no ronchi Gastrointestinal: soft, non-tender, non-distended, normal bowel sounds Extremities: no edema Skin: no rashes Neurological: normal sensation to touch, no weakness (in LE) Neurological - other findings: weakness upper extremities, wost on right. LE weakness but intact ROM Musculoskeletal: normal strength Musculoskeletal - other findings: decreased strength in UE. Right arm weaker than left Psychiatric: normal affect, normal behavior, A&O x 3 Hosp A/P - Plan Carotid doppler: Limited exam, but possible left internal carotid artery stenosis CT brain: left scalp hematoma CT cervical spine: prominent degenerative changes Chest X ray: no acute findings MRI brain: small focus of restricted diffusion involving left temporal lobe Carotid dopplers: left internal carotid artery is not visualized. CTA head and neck: no significant stenosis ECHO: EF 55-60%, mild MR, mild TR MRI cervical spine: hematoma throughout retropharyngeal space of entire cervical spine and upper thoracic spine with possible tear of longitudinal ligament. 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 CT brain negative, MRI shows left temporal lobe stroke . CTA head and neck unremarkable, carotid doppler showed possible left ICA stenosis - EEG was normal. NEurology started on keppra. Recommended continuing this since high risk for seizures. - continue aspirin and statin - ECHO showed no thrombus - 06/08: MRI brain showed that the previous restricted diffusion has resolved. Stable left frontal scalp hematoma. - continue with physical therapy, patient is pending bed at rehab Leukocytosis/Dysuria- rule out UTI - resolved - WBC 9.5 - Patient no longer reports dysuria - UA and chest X ray normal on admission. Repeat UA was positive, catheter removed 06/09. Final urine culture showed no growth. 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 Neurosurgery consulted, was considered for surgery but patient wants to exhaust all conservative options first - he is still awaiting placement - increase gabapentin to 200 mg tid. Continue flexeril scheduled - discontinued IV toradol. Will start PO NSAIDs Lumbar spinal spondylosis with L5 nerve impingement - patient reports gait unsteadiness while ambulating. Feels an occasional "shooting" down his left leg. Left hip x-ray normal MRI on 02/06 showed moderate to severe lumbar spondylosis. A L4-5 disc protrusion that induces severe narrowing of left lateral recess with impingement of the transversing L5 nerve root. - Patient did not want pain injections, continue with PT Retropharyngeal space hematoma -stable, no intervention per neurosurgery since not impinging on spine - possibly from high doses of aspirin patient was taking at home? Delirium - resolved - possibly from concussion from head trauma. EEG negative, does have mild stroke , not getting sedatives. Blood culture positive 1/2 for alpha strep, likely contaminant. UA negative, chest X ray normal Possible BENJAMÍN - patient was noted to be snoring heavily while on stroke floor, consider outpatient workup S/p fall - continue with PT Anemia - Hb 12.6 Dispo: pending placement at inpatient rehab ([facility]) DVT prophylaxis: lovenox Code status: full code I have seen and examined patient with medical student and agree with the plan above. Still waiting on insurance eapproval to go to [facility]. Weakness in upper legs is improving, he is still weak ambulating On exam: neck nontender to palpation. He still has trouble lifting arms up but can lift legs. Reflexes diminished in upper extremities (left worst than right), compared to lower Strength 5/5 lower Currently pending placement
[2020-06-11] MEDS: Cyclobenzaprine 10 MG TAB PO SCH ×2 (16:00→20:31)
[2020-06-11] MEDS: Atorvastatin Calcium 40 MG TAB PO SCH (20:31)
[2020-06-11] MEDS: Enoxaparin Sodium 40 MG/0.4 ML SYRINGE SC SCH (20:32)
[2020-06-11] MEDS: Naproxen 500 MG TAB PO SCH (20:33)
[2020-06-11] MEDS: Melatonin 3 MG TAB PO SCH (23:01)
[2020-06-11] MEDS: Zolpidem Tartrate 5 MG TAB PO PRN (23:01)
[2020-06-12] MEDS: Acetaminophen 325 MG TAB PO PRN (05:05)
[2020-06-12 06:07] LABS: Band 7 % (5-11); Eosinophils 2 % (0-10); Hemoglobin 16.6 g/dL (14.0-18.0); Lymphocytes 21 % (21-51); MDiff Complete? YES; Mean Corpuscular Hemoglobin 32.5 pg (27.0-31.0); Mean Corpuscular Volume 98.3 fL (78.0-98.0); Mean Platelet Volume 6.2 fL (7.4-10.4); Monocytes 2 % (0-10); Neutrophil 68 % (42-75); Platelet Count 382 thou/uL (130-400); Platelet Morphology Comment Appears Adequate; RBC Distribution Width 12.8 % (11.5-14.5); RBC Morphology Normal; Red Blood Cell (RBC) Count 5.11 mill/uL (4.70-6.10); White Blood Cell (WBC) Count 10.3 thou/uL (4.8-10.8)
[2020-06-12 06:09] LABS: Anion Gap 13 mmol/L (10-20); BUN (Urea Nitrogen) 19 mg/dL (8.4-25.7); Calc. Creatinine Clearance 117 mL/min (70-130); Calcium 9.4 mg/dL (7.8-10.44); Carbon Dioxide 24 mmol/L (23-31); Chloride 104 mmol/L (98-107); Estimated GFR-MDRD 89; Glucose 100 mg/dL (80-115); Potassium 4.4 mmol/L (3.5-5.1); Sodium 137 mmol/L (136-145)
[2020-06-12] MEDS: Cyclobenzaprine 10 MG TAB PO SCH ×3 (08:47→20:57)
[2020-06-12] MEDS: Lisinopril 20 MG TAB PO SCH (08:48)
[2020-06-12] MEDS: Gabapentin 100 MG CAP PO SCH ×3 (08:48→20:58)
[2020-06-12] MEDS: Bupropion 150 MG SR TAB PO SCH ×2 (08:48→21:01)
[2020-06-12] MEDS: metFORMIN 500 MG TAB PO SCH (08:48)
[2020-06-12] MEDS: Docusate 100 MG CAP PO SCH ×2 (08:48→21:02)
[2020-06-12] MEDS: Aspirin 81 mg Enteric Coated Tablet PO SCH (08:48)
[2020-06-12] MEDS: Folic Acid 1 MG TAB PO SCH (08:49)
[2020-06-12] MEDS: Amlodipine 5 MG TAB PO SCH (08:49)
[2020-06-12] MEDS: Cyanocobalamin (Vitamin B-12) 1,000 MCG TAB PO SCH (08:49)
[2020-06-12] MEDS: Escitalopram Oxalate 20 mg Tablet PO SCH (08:49)
[2020-06-12] MEDS: levETIRAcetam 500 MG TAB PO SCH ×2 (08:49→21:01)
[2020-06-12] MEDS: Nicotine 21 MG PATCH TD SCH (08:50)
[2020-06-12] MEDS: Naproxen 500 MG TAB PO SCH ×2 (08:50→20:59)
--- NOTE | 2020-06-12 17:48 | PDOC.HOSPP ---
- Subjective Encounter Date: 06/12/20 Encounter Time: 11:00 Subjective: Neck pain/back pain - he still continues to have pain when he moves in certain positions. He states vishal is helping dramatically and works better than the toradol or narcotics. [facility] has accepted the patient, waiting on insurance approval. I have explained multiple times to patient regarding cause of his upper extremity weakness. Discussed that neurosurgery recommended spinal surgery if physical therapy fails. I also provided him progress notes and imaging results for reference Left hip pain - this has resolved. He was seen by pain management earlier when he had intermittent spasms but pain resolved by trish roa. - Objective Vital Signs & Weight: Vital Signs (12 hours) Temp Pulse Resp BP BP Pulse Ox 06/12/20 08:49 78 123/70 06/12/20 08:48 123/70 06/12/20 07:09 98.4 F 78 17 123/70 96 Weight Admit Weight 203 lb 6.4 oz Weight 209 lb Most Recent Monitor Data Heart Rate from ECG 82 NIBP 145/91 NIBP BP-Mean 109 Respiration from ECG 14 SpO2 100 I&O: 06/11/20 06/12/20 06/13/20 06:59 06:59 06:59 Intake Total 2680 1920 Balance 2680 1920 Result Diagrams: 06/12/20 05:18 06/12/20 05:18 Hospitalist ROS - Review of Systems Constitutional: denies: fever, chills - Medication Medications: Active Medications Generic Name Dose Route Start Last Admin Trade Name Freq PRN Reason Stop Dose Admin Acetaminophen 650 mg 05/27/20 11:04 06/12/20 05:05 Acetaminophen 325 Mg Tab PO 650 mg Q4H PRN Administration Headache/Fever/Mild Pain (1-3) Amlodipine Besylate 5 mg 06/02/20 09:00 06/12/20 08:49 Amlodipine 5 Mg Tab PO 5 mg DAILY VENKATESH Administration Aspirin 81 mg 05/28/20 09:00 06/12/20 08:48 Aspirin 81 Mg Enteric Coated Tablet PO 81 mg DAILY VENKATESH Administration Atorvastatin Calcium 40 mg 06/02/20 21:00 06/11/20 20:31 Atorvastatin Calcium 40 Mg Tab PO 40 mg HS VENKATESH Administration Bupropion HCl 150 mg 05/30/20 21:00 06/12/20 08:48 Bupropion 150 Mg Sr Tab PO 150 mg BID VENKATESH Administration Cyanocobalamin 1,000 mcg 05/29/20 09:00 06/12/20 08:49 Cyanocobalamin (Vitamin B-12) 1,000 Mcg Tab PO 1,000 mcg DAILY VENKATESH Administration Cyclobenzaprine HCl 5 mg 06/11/20 15:00 06/12/20 15:35 Cyclobenzaprine 10 Mg Tab PO 5 mg TID VENKATESH Administration Docusate Sodium 100 mg 06/03/20 21:00 06/12/20 08:48 Docusate 100 Mg Cap PO 100 mg BID VENKATESH Administration Enoxaparin Sodium 40 mg 05/27/20 21:00 06/11/20 20:32 Enoxaparin Sodium 40 Mg/0.4 Ml Syringe SC 40 mg HS VENKATESH Administration Escitalopram Oxalate 20 mg 05/31/20 09:00 06/12/20 08:49 Escitalopram Oxalate 20 Mg Tablet PO 20 mg DAILY VENKATESH Administration Folic Acid 1 mg 05/29/20 09:00 06/12/20 08:49 Folic Acid 1 Mg Tab PO 1 mg DAILY VENKATESH Administration Gabapentin 200 mg 06/11/20 21:00 06/12/20 15:36 Gabapentin 100 Mg Cap PO 200 mg TID VENKATESH Administration Insulin Human Lispro 0 units 05/27/20 11:04 06/01/20 20:32 Humalog 300 Units/3 Ml Vial SC 2 unit .MILD SLIDING SCALE PRN Administration Mild Correctional Scale Labetalol HCl 20 mg 05/28/20 01:37 05/29/20 03:39 Labetalol Hcl 100 Mg/20 Ml Vial SLOW IVP 20 mg Q4H PRN Administration SBP > 180 and HR >/= 70 Levetiracetam 500 mg 05/29/20 21:00 06/12/20 08:49 Levetiracetam 500 Mg Tab PO 500 mg BID VENKATESH Administration Lisinopril 40 mg 06/02/20 09:00 06/12/20 08:48 Lisinopril 20 Mg Tab PO 40 mg DAILY VENKATESH Administration Melatonin 6 mg 06/08/20 21:00 06/11/20 23:01 Melatonin 3 Mg Tab PO 6 mg HS VENKATESH Administration Metformin HCl 500 mg 06/02/20 09:00 06/12/20 08:48 Metformin 500 Mg Tab PO 500 mg DAILY VENKATESH Administration Naproxen 500 mg 06/11/20 21:00 06/12/20 08:50 Naproxen 500 Mg Tab PO 500 mg BID VENKATESH Administration Nicotine 21 mg 06/01/20 09:00 06/12/20 08:50 Nicotine 21 Mg Patch TD Not Given DAILY VENKATESH Sodium Chloride 10 ml 05/27/20 21:00 06/12/20 08:51 Flush - Normal Saline 10 Ml Syringe IVF 10 ml Q12HR VENKATESH Administration Zolpidem Tartrate 5 mg 06/08/20 13:21 06/11/20 23:01 Zolpidem Tartrate 5 Mg Tab PO 5 mg HSPRN PRN Administration Insomnia - Exam General Appearance: NAD, awake alert Eye: PERRL, anicteric sclera ENT: normocephalic atraumatic, no oropharyngeal lesions ENT - other findings: no neck tenderness. Neck: no JVD Heart: RRR, no murmur, no gallops, no rubs Respiratory: CTAB Gastrointestinal: soft, non-tender, non-distended, normal bowel sounds Extremities: no edema Skin: normal turgor, no lesions, no rashes Neurological - other findings: Reflexes 1.5+ right biceps, 1+ left. 3+ patellar bilaterally Musculoskeletal: normal strength (in lower extremities) Musculoskeletal - other findings: bilateral UE weakness. Hosp A/P - Plan Carotid doppler: Limited exam, but possible left internal carotid artery stenos is CT brain: left scalp hematoma CT cervical spine: prominent degenerative changes Chest X ray: no acute findings MRI brain: small focus of restricted diffusion involving left temporal lobe Carotid dopplers: left internal carotid artery is not visualized. CTA head and neck: no significant stenosis ECHO: EF 55-60%, mild MR, mild TR MRI cervical spine: hematoma throughout retropharyngeal space of entire cervical spine and upper thoracic spine with possible tear of longitudinal ligament. High grade DJD from C3-C4 and C6-C7 and posterior perivertebral space edema Left hip Xray 06/07: no evidence of fracture MRI lumbar spine 06/08: moderate to severe lumbar spondylosis. Broad based bulge with superimposed left paracentral disc protrusion at L4-L5 induces severe narrowing of the left lateral recess with impingement of the traversing left L5 nerve root. Prominent neural foraminal narrowing L3-L4 through L5-S1. Mild central canal narrowing L4-L5 and L3-L4 This is a 64 year old male who presented to the ER after a fall , found to have a stroke. He initially had right arm weakness, but then developed left arm weakness. MRi cervical spine showed retropharyngeal hematoma, but per neurosurgery this was not involving the spine so no surgical management needed. He continues to have bilateral UE weakness and difficulty walking so waiting on inpatient rehab Left temporal lobe stroke - patient had right arm weakness on admission. CT brain negative, MRI shows left temporal lobe stroke . CTA head and neck unremarkable, carotid doppler showed possible left ICA stenosis - EEG was normal. NEurology started on keppra. Recommended continuing this since high risk for seizures. - continue aspirin and statin - ECHO showed no thrombus - repeat MRI brain 06/08 for left arm weakness showed that the previous restricted diffusion has resolved. Stable left frontal scalp hematoma. - continue with physical therapy, patient is pending bed at rehab Cervical degenerative disc disease with bilateral upper extremity weakness - MRI cervical spine showing high grade DJD . Neurosurgery consulted, was considered for surgery but patient wants to exhaust all conservative options first. He has bilateral UE weakness - he is awaiting inpatient rehab placement at [facility] - continue flexeril for muscle spasms, gabapentin 200 mg tid and naproxen 500 mg bid Lumbar spinal spondylosis with L5 nerve impingement - Left hip x-ray normal MRI on 02/06 showed moderate to severe lumbar spondylosis. MRI lumbar spine shows A L4-5 disc protrusion that induces severe narrowing of left lateral recess with impingement of the transversing L5 nerve root. - pain management consulted, patient did not want injections. Awaiting inpatient rheab placement Retropharyngeal space hematoma -stable, no intervention per neurosurgery since not impinging on spine - possibly from high doses of aspirin patient was taking at home? Leukocytosis/Dysuria- rule out UTI - resolved - WBC > 10 . Patient no longer reports dysuria. Urine culture normal, narayan catheter removed 06/09 Delirium - resolved - possibly from concussion from head trauma. EEG negative, does have mild stroke , not getting sedatives. Blood culture positive 08/15 for alpha strep, likely contaminant. UA negative, chest X ray normal Possible BENJAMÍN - patient was noted to be snoring heavily while on stroke floor, consider outpatient workup S/p fall - continue with PT Dispo: pending placement at inpatient rehab ([facility]) DVT prophylaxis: lovenox Code status: full code
[2020-06-12] MEDS: Atorvastatin Calcium 40 MG TAB PO SCH (20:58)
[2020-06-12] MEDS: Enoxaparin Sodium 40 MG/0.4 ML SYRINGE SC SCH (21:01)
[2020-06-12] MEDS: Melatonin 3 MG TAB PO SCH ×2 (21:01→23:08)
[2020-06-12] MEDS: Zolpidem Tartrate 5 MG TAB PO PRN (23:08)
[2020-06-13 07:09] LABS: Anion Gap 15 mmol/L (10-20); BUN (Urea Nitrogen) 20 mg/dL (8.4-25.7); Calc. Creatinine Clearance 110 mL/min (70-130); Calcium 9.3 mg/dL (7.8-10.44); Carbon Dioxide 23 mmol/L (23-31); Chloride 105 mmol/L (98-107); Estimated GFR-MDRD 83; Glucose 91 mg/dL (80-115); Potassium 4.3 mmol/L (3.5-5.1); Sodium 139 mmol/L (136-145)
[2020-06-13 08:18] LABS: Hemoglobin 12.5 g/dL (14.0-18.0); Mean Corpuscular HGB CONC 33.5 g/dL (32.0-36.0); Mean Corpuscular Hemoglobin 32.9 pg (27.0-31.0); Mean Corpuscular Volume 98.2 fL (78.0-98.0); RBC Distribution Width 12.6 % (11.5-14.5); Red Blood Cell (RBC) Count 3.79 mill/uL (4.70-6.10)
[2020-06-13 08:35] LABS: Eosinophils 8 % (0-10); Large Platelets SLIGHT; Lymphocytes 36 % (21-51); MDiff Complete? YES; Mean Platelet Volume 6.1 fL (7.4-10.4); Monocytes 10 % (0-10); Neutrophil 42 % (42-75); Platelet Count 482 thou/uL (130-400); Platelet Morphology Comment Appears Increased; Reactive Lymphocytes 2 % (0-10); White Blood Cell (WBC) Count 10.2 thou/uL (4.8-10.8)
--- NOTE | 2020-06-13 08:42 | PDOC.HOSPP ---
- Subjective Encounter Date: 06/13/20 Encounter Time: 12:00 Subjective: Patient complaining of no BM for one week, and that one was small. No abdominal pain. No other complaints. - Objective Vital Signs & Weight: Vital Signs (12 hours) Temp Pulse Resp BP BP Pulse Ox 06/13/20 07:14 98.3 F 79 17 122/78 98 06/12/20 21:43 115/74 Weight Admit Weight 203 lb 6.4 oz Weight 209 lb Most Recent Monitor Data Heart Rate from ECG 82 NIBP 145/91 NIBP BP-Mean 109 Respiration from ECG 14 SpO2 100 I&O: 06/12/20 06/13/20 06/14/20 06:59 06:59 05:59 Intake Total 1919 1200 Balance 1919 1200 Result Diagrams: 06/13/20 07:40 06/13/20 05:55 Additional Labs: Accuchecks 06/13/20 06/12/20 06/12/20 05:43 19:45 15:58 POC Glucose 88 97 113 H 06/12/20 06/12/20 06/11/20 11:30 04:15 19:23 POC Glucose 97 93 87 06/11/20 06/11/20 06/10/20 16:00 11:32 12:08 POC Glucose 98 113 H 99 Hospitalist ROS - Review of Systems Constitutional: denies: fever, chills ENT: denies: mouth swelling Respiratory: denies: cough Cardiovascular: denies: chest pain, palpitations Gastrointestinal: reports: constipation. denies: nausea, vomiting, abdominal pain Genitourinary: denies: dysuria, hematuria - Medication Medications: Active Medications Generic Name Dose Route Start Last Admin Trade Name Freq PRN Reason Stop Dose Admin Acetaminophen 650 mg 05/27/20 11:04 06/12/20 05:05 Acetaminophen 325 Mg Tab PO 650 mg Q4H PRN Administration Headache/Fever/Mild Pain (1-3) Amlodipine Besylate 5 mg 06/02/20 09:00 06/12/20 08:49 Amlodipine 5 Mg Tab PO 5 mg DAILY VENKATESH Administration Aspirin 81 mg 05/28/20 09:00 06/12/20 08:48 Aspirin 81 Mg Enteric Coated Tablet PO 81 mg DAILY VENKATESH Administration Atorvastatin Calcium 40 mg 06/02/20 21:00 06/12/20 20:58 Atorvastatin Calcium 40 Mg Tab PO 40 mg HS VENKATESH Administration Bupropion HCl 150 mg 05/30/20 21:00 06/12/20 21:01 Bupropion 150 Mg Sr Tab PO 150 mg BID VENKATESH Administration Cyanocobalamin 1,000 mcg 05/29/20 09:00 06/12/20 08:49 Cyanocobalamin (Vitamin B-12) 1,000 Mcg Tab PO 1,000 mcg DAILY VENKATESH Administration Cyclobenzaprine HCl 5 mg 06/11/20 15:00 06/12/20 20:57 Cyclobenzaprine 10 Mg Tab PO 5 mg TID VENKATESH Administration Docusate Sodium 100 mg 06/03/20 21:00 06/12/20 21:02 Docusate 100 Mg Cap PO 100 mg BID VENKATESH Administration Enoxaparin Sodium 40 mg 05/27/20 21:00 06/12/20 21:01 Enoxaparin Sodium 40 Mg/0.4 Ml Syringe SC 40 mg HS VENKATESH Administration Escitalopram Oxalate 20 mg 05/31/20 09:00 06/12/20 08:49 Escitalopram Oxalate 20 Mg Tablet PO 20 mg DAILY VENKATESH Administration Folic Acid 1 mg 05/29/20 09:00 06/12/20 08:49 Folic Acid 1 Mg Tab PO 1 mg DAILY VENKATESH Administration Gabapentin 200 mg 06/11/20 21:00 06/12/20 20:58 Gabapentin 100 Mg Cap PO 200 mg TID VENKATESH Administration Insulin Human Lispro 0 units 05/27/20 11:04 06/01/20 20:32 Humalog 300 Units/3 Ml Vial SC 2 unit .MILD SLIDING SCALE PRN Administration Mild Correctional Scale Labetalol HCl 20 mg 05/28/20 01:37 05/29/20 03:39 Labetalol Hcl 100 Mg/20 Ml Vial SLOW IVP 20 mg Q4H PRN Administration SBP > 180 and HR >/= 70 Levetiracetam 500 mg 05/29/20 21:00 06/12/20 21:01 Levetiracetam 500 Mg Tab PO 500 mg BID VENKATESH Administration Lisinopril 40 mg 06/02/20 09:00 06/12/20 08:48 Lisinopril 20 Mg Tab PO 40 mg DAILY VENKATESH Administration Melatonin 6 mg 06/08/20 21:00 06/12/20 23:08 Melatonin 3 Mg Tab PO 6 mg HS VENKATESH Administration Metformin HCl 500 mg 06/02/20 09:00 06/12/20 08:48 Metformin 500 Mg Tab PO 500 mg DAILY VENKATESH Administration Naproxen 500 mg 06/11/20 21:00 06/12/20 20:59 Naproxen 500 Mg Tab PO 500 mg BID VENKATESH Administration Nicotine 21 mg 06/01/20 09:00 06/12/20 08:50 Nicotine 21 Mg Patch TD Not Given DAILY VENKATESH Sodium Chloride 10 ml 05/27/20 21:00 06/12/20 21:07 Flush - Normal Saline 10 Ml Syringe IVF 10 ml Q12HR VENKATESH Administration Zolpidem Tartrate 5 mg 06/08/20 13:21 06/12/20 23:08 Zolpidem Tartrate 5 Mg Tab PO 5 mg HSPRN PRN Administration Insomnia - Exam General Appearance: NAD, awake alert ENT: moist mucosa Heart: RRR, no murmur, no gallops, no rubs Respiratory: CTAB, no wheezes, no rales, no ronchi Gastrointestinal: soft, non-tender, non-distended, normal bowel sounds Psychiatric: normal affect, normal behavior, A&O x 3 Hosp A/P - Plan Carotid doppler: Limited exam, but possible left internal carotid artery stenosis CT brain: left scalp hematoma CT cervical spine: prominent degenerative changes Chest X ray: no acute findings MRI brain: small focus of restricted diffusion involving left temporal lobe Carotid dopplers: left internal carotid artery is not visualized. CTA head and neck: no significant stenosis ECHO: EF 55-60%, mild MR, mild TR MRI cervical spine: hematoma throughout retropharyngeal space of entire cervical spine and upper thoracic spine with possible tear of longitudinal ligament. High grade DJD from C3-C4 and C6-C7 and posterior perivertebral space edema Left hip Xray 06/07: no evidence of fracture MRI lumbar spine 06/08: moderate to severe lumbar spondylosis. Broad based bulge with superimposed left paracentral disc protrusion at L4-L5 induces severe narrowing of the left lateral recess with impingement of the traversing left L5 nerve root. Prominent neural foraminal narrowing L3-L4 through L5-S1. Mild central canal narrowing L4-L5 and L3-L4 This is a 64 year old male who presented to the ER after a fall , found to have a stroke. He initially had right arm weakness, but then developed left arm weakness. MRi cervical spine showed retropharyngeal hematoma, but per neurosurgery this was not involving the spine so no surgical management needed. He continues to have bilateral UE weakness and difficulty walking so waiting on inpatient rehab Left temporal lobe stroke - patient had right arm weakness on admission. CT brain negative, MRI shows left temporal lobe stroke . CTA head and neck unremarkable, carotid doppler showed possible left ICA stenosis - EEG was normal. NEurology started on keppra. Recommended continuing this since high risk for seizures. - continue aspirin and statin - ECHO showed no thrombus - repeat MRI brain 06/08 for left arm weakness showed that the previous restricted diffusion has resolved. Stable left frontal scalp hematoma. - continue with physical therapy, patient is pending bed at rehab Cervical degenerative disc disease with bilateral upper extremity weakness - MRI cervical spine showing high grade DJD . Neurosurgery consulted, was considered for surgery but patient wants to exhaust all conservative options first. He has bilateral UE weakness - he is awaiting inpatient rehab placement at [facility] - continue flexeril for muscle spasms, gabapentin 200 mg tid and naproxen 500 mg bid Lumbar spinal spondylosis with L5 nerve impingement - Left hip x-ray normal MRI on 02/06 showed moderate to severe lumbar spondylosis. MRI lumbar spine shows A L4-5 disc protrusion that induces severe narrowing of left lateral recess with impingement of the transversing L5 nerve root. - pain management consulted, patient did not want injections and hip pain had resolved. Awaiting inpatient rheab placement Retropharyngeal space hematoma -stable, no intervention per neurosurgery since not impinging on spine - possibly from high doses of aspirin patient was taking at home? Leukocytosis/Dysuria- rule out UTI - resolved - WBC > 10 . Patient no longer reports dysuria. Urine culture normal, narayan catheter removed 06/09 Delirium - resolved - possibly from concussion from head trauma. EEG negative, does have mild stroke , not getting sedatives. Blood culture positive 08/15 for alpha strep, likely contaminant. UA negative, chest X ray normal Possible BENJAMÍN - patient was noted to be snoring heavily while on stroke floor, consider outpatient workup S/p fall - continue with PT Constipation - Will add Senna and Miralax to colace Dispo: pending placement at inpatient rehab ([facility]) DVT prophylaxis: lovenox Code status: full code
[2020-06-13] MEDS: Bupropion 150 MG SR TAB PO SCH ×2 (08:47→20:58)
[2020-06-13] MEDS: Naproxen 500 MG TAB PO SCH ×2 (08:47→21:00)
[2020-06-13] MEDS: Gabapentin 100 MG CAP PO SCH ×3 (08:48→20:59)
[2020-06-13] MEDS: levETIRAcetam 500 MG TAB PO SCH ×2 (08:49→21:02)
[2020-06-13] MEDS: Cyclobenzaprine 10 MG TAB PO SCH ×3 (08:49→21:01)
[2020-06-13] MEDS: metFORMIN 500 MG TAB PO SCH (08:49)
[2020-06-13] MEDS: Escitalopram Oxalate 20 mg Tablet PO SCH (08:49)
[2020-06-13] MEDS: Docusate 100 MG CAP PO SCH ×2 (08:49→21:00)
[2020-06-13] MEDS: Amlodipine 5 MG TAB PO SCH (08:49)
[2020-06-13] MEDS: Lisinopril 20 MG TAB PO SCH (08:49)
[2020-06-13] MEDS: Aspirin 81 mg Enteric Coated Tablet PO SCH (08:50)
[2020-06-13] MEDS: Cyanocobalamin (Vitamin B-12) 1,000 MCG TAB PO SCH (08:50)
[2020-06-13] MEDS: Folic Acid 1 MG TAB PO SCH (08:50)
[2020-06-13] MEDS: Nicotine 21 MG PATCH TD SCH (08:50)
[2020-06-13] MEDS ORDERED: Senokot 8.6 MG TAB PO PRN (14:06)
[2020-06-13] MEDS: Melatonin 3 MG TAB PO SCH (21:00)
[2020-06-13] MEDS: Enoxaparin Sodium 40 MG/0.4 ML SYRINGE SC SCH (21:02)
[2020-06-13] MEDS: Atorvastatin Calcium 40 MG TAB PO SCH (21:02)
[2020-06-13] MEDS: Zolpidem Tartrate 5 MG TAB PO PRN (21:12)
[2020-06-14 06:55] LABS: Band 1 % (5-11); Eosinophils 2 % (0-10); Hemoglobin 12.5 g/dL (14.0-18.0); Hypochromia SLIGHT = 6-15 cells (100X) (0-5/hpf); Lymphocytes 28 % (21-51); MDiff Complete? YES; Mean Corpuscular HGB CONC 33.2 g/dL (32.0-36.0); Mean Corpuscular Hemoglobin 32.5 pg (27.0-31.0); Mean Corpuscular Volume 97.7 fL (78.0-98.0); Mean Platelet Volume 6.3 fL (7.4-10.4); Monocytes 5 % (0-10); Neutrophil 64 % (42-75); Platelet Count 488 thou/uL (130-400); Platelet Morphology Comment Appears Increased; RBC Distribution Width 12.5 % (11.5-14.5); Red Blood Cell (RBC) Count 3.86 mill/uL (4.70-6.10); White Blood Cell (WBC) Count 9.4 thou/uL (4.8-10.8)
[2020-06-14 07:11] LABS: Anion Gap 16 mmol/L (10-20); BUN (Urea Nitrogen) 16 mg/dL (8.4-25.7); Calc. Creatinine Clearance 130 mL/min (70-130); Calcium 8.8 mg/dL (7.8-10.44); Carbon Dioxide 21 mmol/L (23-31); Chloride 105 mmol/L (98-107); Estimated GFR-MDRD Greater than 90; Glucose 121 mg/dL (80-115); Potassium 4.2 mmol/L (3.5-5.1); Sodium 138 mmol/L (136-145)
[2020-06-14] MEDS: Aspirin 81 mg Enteric Coated Tablet PO SCH (08:52)
[2020-06-14] MEDS: Cyclobenzaprine 10 MG TAB PO SCH ×3 (08:52→20:25)
[2020-06-14] MEDS: Lisinopril 20 MG TAB PO SCH (08:53)
[2020-06-14] MEDS: Gabapentin 100 MG CAP PO SCH ×3 (08:53→20:23)
[2020-06-14] MEDS: Cyanocobalamin (Vitamin B-12) 1,000 MCG TAB PO SCH (08:53)
[2020-06-14] MEDS: levETIRAcetam 500 MG TAB PO SCH ×2 (08:54→20:23)
[2020-06-14] MEDS: Folic Acid 1 MG TAB PO SCH (08:54)
[2020-06-14] MEDS: Amlodipine 5 MG TAB PO SCH (08:54)
[2020-06-14] MEDS: Docusate 100 MG CAP PO SCH ×2 (08:54→20:25)
[2020-06-14] MEDS: Escitalopram Oxalate 20 mg Tablet PO SCH (08:54)
[2020-06-14] MEDS: metFORMIN 500 MG TAB PO SCH (08:54)
[2020-06-14] MEDS: Bupropion 150 MG SR TAB PO SCH ×2 (08:55→20:25)
[2020-06-14] MEDS: Naproxen 500 MG TAB PO SCH ×2 (08:55→20:24)
[2020-06-14] MEDS: Nicotine 21 MG PATCH TD SCH (08:58)
[2020-06-14] MEDS: Polyethylene Glycol 3350 17 GM Packet PO SCH (08:59)
--- NOTE | 2020-06-14 12:23 | PDOC.HOSPP ---
- Subjective Encounter Date: 06/14/20 Encounter Time: 12:15 Subjective: f/u for severe cervical spinal stenosis with bilat UE's weakness awaiting approval for inpt rehab hospital day #18. - Objective Vital Signs & Weight: Vital Signs (12 hours) Temp Pulse Resp BP BP Pulse Ox 06/14/20 08:54 68 06/14/20 08:53 122/79 06/14/20 08:00 98.2 F 72 16 143/83 H 98 Weight Admit Weight 203 lb 6.4 oz Weight 209 lb Most Recent Monitor Data Heart Rate from ECG 82 NIBP 145/91 NIBP BP-Mean 109 Respiration from ECG 14 SpO2 100 I&O: 06/13/20 06/14/20 06/15/20 07:59 06:59 06:59 Intake Total 320 Balance 320 Result Diagrams: 06/14/20 06:01 06/14/20 06:01 Additional Labs: Accuchecks 06/14/20 06/14/20 06/13/20 11:09 05:37 15:56 POC Glucose 107 H 134 H 129 H Microbiology 05/27/20 15:59 Venous blood - Left Hand Blood Culture - Final Alpha-Strep, not S. pneumoniae 05/27/20 15:58 Venous blood - Right Hand Blood Culture - Preliminary NO GROWTH AT 48 HOURS Laboratory Tests 05/27/20 05/27/20 05/27/20 07:20 07:21 07:21 WBC 12.0 H Creatine Kinase 1672 H Vitamin B12 Folate TSH 3rd Generation Plasma Alcohol Less than 10 SARS-CoV-2 (PCR) 05/27/20 05/28/20 05/28/20 12:51 04:46 04:46 WBC 10.6 Creatine Kinase 955 H Vitamin B12 Folate TSH 3rd Generation Plasma Alcohol SARS-CoV-2 (PCR) Not Detected 05/29/20 05/29/20 04:28 04:28 WBC Creatine Kinase Vitamin B12 264 Folate 5.60 L TSH 3rd Generation 1.5377 Plasma Alcohol SARS-CoV-2 (PCR) Radiology Reviewed by me: Yes (MRI brain - resolved restricted diffusion defect) Hospitalist ROS - Medication Medications: Active Medications Generic Name Dose Route Start Last Admin Trade Name Freq PRN Reason Stop Dose Admin Acetaminophen 650 mg 05/27/20 11:04 06/12/20 05:05 Acetaminophen 325 Mg Tab PO 650 mg Q4H PRN Administration Headache/Fever/Mild Pain (1-3) Amlodipine Besylate 5 mg 06/02/20 09:00 06/14/20 08:54 Amlodipine 5 Mg Tab PO 5 mg DAILY VENKATESH Administration Aspirin 81 mg 05/28/20 09:00 06/14/20 08:52 Aspirin 81 Mg Enteric Coated Tablet PO 81 mg DAILY VENKATESH Administration Atorvastatin Calcium 40 mg 06/02/20 21:00 06/13/20 21:02 Atorvastatin Calcium 40 Mg Tab PO 40 mg HS VENKATESH Administration Bupropion HCl 150 mg 05/30/20 21:00 06/14/20 08:55 Bupropion 150 Mg Sr Tab PO 150 mg BID VENKATESH Administration Cyanocobalamin 1,000 mcg 05/29/20 09:00 06/14/20 08:53 Cyanocobalamin (Vitamin B-12) 1,000 Mcg Tab PO 1,000 mcg DAILY VENKATESH Administration Cyclobenzaprine HCl 5 mg 06/11/20 15:00 06/14/20 08:52 Cyclobenzaprine 10 Mg Tab PO 5 mg TID VENKATESH Administration Docusate Sodium 100 mg 06/03/20 21:00 06/14/20 08:54 Docusate 100 Mg Cap PO 100 mg BID VENKATESH Administration Enoxaparin Sodium 40 mg 05/27/20 21:00 06/13/20 21:02 Enoxaparin Sodium 40 Mg/0.4 Ml Syringe SC 40 mg HS VENKATESH Administration Escitalopram Oxalate 20 mg 05/31/20 09:00 06/14/20 08:54 Escitalopram Oxalate 20 Mg Tablet PO 20 mg DAILY VENKATESH Administration Folic Acid 1 mg 05/29/20 09:00 06/14/20 08:54 Folic Acid 1 Mg Tab PO 1 mg DAILY VENKATESH Administration Gabapentin 200 mg 06/11/20 21:00 06/14/20 08:53 Gabapentin 100 Mg Cap PO 200 mg TID VENKATESH Administration Insulin Human Lispro 0 units 05/27/20 11:04 06/01/20 20:32 Humalog 300 Units/3 Ml Vial SC 2 unit .MILD SLIDING SCALE PRN Administration Mild Correctional Scale Labetalol HCl 20 mg 05/28/20 01:37 05/29/20 03:39 Labetalol Hcl 100 Mg/20 Ml Vial SLOW IVP 20 mg Q4H PRN Administration SBP > 180 and HR >/= 70 Levetiracetam 500 mg 05/29/20 21:00 06/14/20 08:54 Levetiracetam 500 Mg Tab PO 500 mg BID VENKATESH Administration Lisinopril 40 mg 06/02/20 09:00 06/14/20 08:53 Lisinopril 20 Mg Tab PO 40 mg DAILY VENKATESH Administration Melatonin 6 mg 06/08/20 21:00 06/13/20 21:00 Melatonin 3 Mg Tab PO 6 mg HS VENKATESH Administration Metformin HCl 500 mg 06/02/20 09:00 06/14/20 08:54 Metformin 500 Mg Tab PO 500 mg DAILY VENKATESH Administration Naproxen 500 mg 06/11/20 21:00 06/14/20 08:55 Naproxen 500 Mg Tab PO 500 mg BID VENKATESH Administration Nicotine 21 mg 06/01/20 09:00 06/14/20 08:58 Nicotine 21 Mg Patch TD Not Given DAILY VENKATESH Polyethylene Glycol 17 gm 06/14/20 09:00 06/14/20 08:59 Polyethylene Glycol 3350 17 Gm Packet PO 17 gm DAILY VENKATESH Administration Sodium Chloride 10 ml 05/27/20 21:00 06/14/20 09:00 Flush - Normal Saline 10 Ml Syringe IVF Not Given Q12HR VENKATESH Zolpidem Tartrate 5 mg 06/08/20 13:21 06/13/20 21:12 Zolpidem Tartrate 5 Mg Tab PO 5 mg HSPRN PRN Administration Insomnia - Exam General Appearance: NAD, awake alert Eye: PERRL, anicteric sclera ENT: normocephalic atraumatic, no oropharyngeal lesions Neck: supple, symmetric, no JVD, no thyromegaly, no lymphadenopathy Heart: RRR, no murmur, no gallops, no rubs, normal peripheral pulses Heart - other findings: S1, S2 Respiratory: CTAB, no wheezes, no rales, no ronchi, normal chest expansion Gastrointestinal: soft, non-tender, non-distended, normal bowel sounds, no palpable masses, no guarding Extremities: no cyanosis, no clubbing, no edema Skin: normal turgor Neurological - other findings: BUE weakness Musculoskeletal: generalized weakness Psychiatric: normal affect, A&O x 3 Hosp A/P (1) Cervical spinal stenosis Code(s): M48.02 - SPINAL STENOSIS, CERVICAL REGION Status: Acute Plan: Plan for inpt rehab with prolonged hospital stay, pain control, await inpt rehab approval (2) Bilateral arm weakness Code(s): R29.898 - OTH SYMPTOMS AND SIGNS INVOLVING THE MUSCULOSKELETAL SYSTEM Status: Acute Plan: Persistent, plan for inpt rehab, continue PT/OT (3) Traumatic edema of cervical spinal cord Code(s): S14.0XXA - CONCUSSION AND EDEMA OF CERVICAL SPINAL CORD, INIT ENCNTR Status: Acute (4) Closed head injury Code(s): S09.90XA - UNSPECIFIED INJURY OF HEAD, INITIAL ENCOUNTER Status: Acute (5) Syncope and collapse Code(s): R55 - SYNCOPE AND COLLAPSE Status: Acute (6) Acute CVA (cerebrovascular accident) Code(s): I63.9 - CEREBRAL INFARCTION, UNSPECIFIED Status: Acute Plan: MRI brain showing resolved restricted diffusion - Plan PT/OT, social human services assistants, out of bed/ambulate, DVT proph w/SCDs Stable currently Pain control as clinically indicated PT/OT for mobilization Inpt Rehab approval pending Resume home meds Nicotine patch Bowel regimen
[2020-06-14] MEDS: Enoxaparin Sodium 40 MG/0.4 ML SYRINGE SC SCH (20:22)
[2020-06-14] MEDS: Atorvastatin Calcium 40 MG TAB PO SCH (20:24)
[2020-06-14] MEDS: Melatonin 3 MG TAB PO SCH (20:26)
[2020-06-14] MEDS: Zolpidem Tartrate 5 MG TAB PO PRN (20:33)
[2020-06-15 07:42] VITALS: TEMP 98.1
[2020-06-15] MEDS: Naproxen 500 MG TAB PO SCH (09:13)
[2020-06-15] MEDS: metFORMIN 500 MG TAB PO SCH (09:13)
[2020-06-15] MEDS: levETIRAcetam 500 MG TAB PO SCH (09:13)
[2020-06-15] MEDS: Bupropion 150 MG SR TAB PO SCH (09:14)
[2020-06-15] MEDS: Lisinopril 20 MG TAB PO SCH (09:14)
[2020-06-15] MEDS: Escitalopram Oxalate 20 mg Tablet PO SCH (09:14)
[2020-06-15] MEDS: Cyclobenzaprine 10 MG TAB PO SCH ×2 (09:14→14:17)
[2020-06-15] MEDS: Gabapentin 100 MG CAP PO SCH ×2 (09:15→14:17)
[2020-06-15] MEDS: Aspirin 81 mg Enteric Coated Tablet PO SCH (09:16)
[2020-06-15] MEDS: Cyanocobalamin (Vitamin B-12) 1,000 MCG TAB PO SCH (09:16)
[2020-06-15] MEDS: Amlodipine 5 MG TAB PO SCH (09:16)
[2020-06-15] MEDS: Docusate 100 MG CAP PO SCH (09:16)
[2020-06-15] MEDS: Folic Acid 1 MG TAB PO SCH (09:16)
[2020-06-15 09:17] VITALS: BP 122/79
[2020-06-15] MEDS: Polyethylene Glycol 3350 17 GM Packet PO SCH (09:17)
[2020-06-15] MEDS: Nicotine 21 MG PATCH TD SCH (09:17)
--- NOTE | 2020-06-15 14:33 | PDOC.HOSPP ---
- Subjective Encounter Date: 06/15/20 Encounter Time: 14:30 Subjective: f/u for cervical spinal stenosis with bilat UE weakness awaiting inpt rehab approval. No new issues reported. + multiple BM's today per nursing. - Objective Vital Signs & Weight: Vital Signs (12 hours) Temp Pulse Resp BP BP Pulse Ox 06/15/20 09:16 89 06/15/20 09:14 122/79 06/15/20 07:41 98.1 F 89 20 115/79 96 Weight Admit Weight 203 lb 6.4 oz Weight 209 lb Most Recent Monitor Data Heart Rate from ECG 82 NIBP 145/91 NIBP BP-Mean 109 Respiration from ECG 14 SpO2 100 I&O: 06/14/20 06/15/20 06/16/20 06:59 06:59 06:59 Intake Total 1600 Balance 1600 Result Diagrams: 06/14/20 06:01 06/14/20 06:01 Additional Labs: Accuchecks 06/15/20 06/15/20 06/14/20 11:29 05:58 19:35 POC Glucose 99 128 H 133 H 06/14/20 06/13/20 15:23 20:55 POC Glucose 93 88 Microbiology 05/27/20 15:59 Venous blood - Left Hand Blood Culture - Final Alpha-Strep, not S. pneumoniae 05/27/20 15:58 Venous blood - Right Hand Blood Culture - Preliminary NO GROWTH AT 48 HOURS Laboratory Tests 05/27/20 05/27/20 05/27/20 07:20 07:21 07:21 WBC 12.0 H Creatine Kinase 1672 H Vitamin B12 Folate TSH 3rd Generation Plasma Alcohol Less than 10 SARS-CoV-2 (PCR) 05/27/20 05/28/20 05/28/20 12:51 04:46 04:46 WBC 10.6 Creatine Kinase 955 H Vitamin B12 Folate TSH 3rd Generation Plasma Alcohol SARS-CoV-2 (PCR) Not Detected 05/29/20 05/29/20 04:28 04:28 WBC Creatine Kinase Vitamin B12 264 Folate 5.60 L TSH 3rd Generation 1.5377 Plasma Alcohol SARS-CoV-2 (PCR) Hospitalist ROS - Medication Medications: Active Medications Generic Name Dose Route Start Last Admin Trade Name Freq PRN Reason Stop Dose Admin Acetaminophen 650 mg 05/27/20 11:04 06/12/20 05:05 Acetaminophen 325 Mg Tab PO 650 mg Q4H PRN Administration Headache/Fever/Mild Pain (1-3) Amlodipine Besylate 5 mg 06/02/20 09:00 06/15/20 09:16 Amlodipine 5 Mg Tab PO 5 mg DAILY VENKATESH Administration Aspirin 81 mg 05/28/20 09:00 06/15/20 09:16 Aspirin 81 Mg Enteric Coated Tablet PO 81 mg DAILY VENKATESH Administration Atorvastatin Calcium 40 mg 06/02/20 21:00 06/14/20 20:24 Atorvastatin Calcium 40 Mg Tab PO 40 mg HS VENKATESH Administration Bupropion HCl 150 mg 05/30/20 21:00 06/15/20 09:14 Bupropion 150 Mg Sr Tab PO 150 mg BID VENKATESH Administration Cyanocobalamin 1,000 mcg 05/29/20 09:00 06/15/20 09:16 Cyanocobalamin (Vitamin B-12) 1,000 Mcg Tab PO 1,000 mcg DAILY VENKATESH Administration Cyclobenzaprine HCl 5 mg 06/11/20 15:00 06/15/20 14:17 Cyclobenzaprine 10 Mg Tab PO 5 mg TID VENKATESH Administration Docusate Sodium 100 mg 06/03/20 21:00 06/15/20 09:16 Docusate 100 Mg Cap PO 100 mg BID VENKATESH Administration Enoxaparin Sodium 40 mg 05/27/20 21:00 06/14/20 20:22 Enoxaparin Sodium 40 Mg/0.4 Ml Syringe SC 40 mg HS VENKATESH Administration Escitalopram Oxalate 20 mg 05/31/20 09:00 06/15/20 09:14 Escitalopram Oxalate 20 Mg Tablet PO 20 mg DAILY VENKATESH Administration Folic Acid 1 mg 05/29/20 09:00 06/15/20 09:16 Folic Acid 1 Mg Tab PO 1 mg DAILY VENKATESH Administration Gabapentin 200 mg 06/11/20 21:00 06/15/20 14:17 Gabapentin 100 Mg Cap PO 200 mg TID VENKATESH Administration Insulin Human Lispro 0 units 05/27/20 11:04 06/01/20 20:32 Humalog 300 Units/3 Ml Vial SC 2 unit .MILD SLIDING SCALE PRN Administration Mild Correctional Scale Labetalol HCl 20 mg 05/28/20 01:37 05/29/20 03:39 Labetalol Hcl 100 Mg/20 Ml Vial SLOW IVP 20 mg Q4H PRN Administration SBP > 180 and HR >/= 70 Levetiracetam 500 mg 05/29/20 21:00 06/15/20 09:13 Levetiracetam 500 Mg Tab PO 500 mg BID VENKATESH Administration Lisinopril 40 mg 06/02/20 09:00 06/15/20 09:14 Lisinopril 20 Mg Tab PO 40 mg DAILY VENKATESH Administration Melatonin 6 mg 06/08/20 21:00 06/14/20 20:26 Melatonin 3 Mg Tab PO 6 mg HS VENKATESH Administration Metformin HCl 500 mg 06/02/20 09:00 06/15/20 09:13 Metformin 500 Mg Tab PO 500 mg DAILY VENKATESH Administration Naproxen 500 mg 06/11/20 21:00 06/15/20 09:13 Naproxen 500 Mg Tab PO 500 mg BID VENKATESH Administration Nicotine 21 mg 06/01/20 09:00 06/15/20 09:17 Nicotine 21 Mg Patch TD Not Given DAILY VENKATESH Polyethylene Glycol 17 gm 06/14/20 09:00 06/15/20 09:17 Polyethylene Glycol 3350 17 Gm Packet PO Not Given DAILY VENKATESH Sodium Chloride 10 ml 05/27/20 21:00 06/15/20 09:17 Flush - Normal Saline 10 Ml Syringe IVF Not Given Q12HR VENKATESH Zolpidem Tartrate 5 mg 06/08/20 13:21 06/14/20 20:33 Zolpidem Tartrate 5 Mg Tab PO 5 mg HSPRN PRN Administration Insomnia - Exam General Appearance: NAD, awake alert Eye: PERRL, anicteric sclera ENT: normocephalic atraumatic, no oropharyngeal lesions Neck: supple, symmetric, no JVD, no thyromegaly, no lymphadenopathy Heart: RRR, no gallops, no rubs, normal peripheral pulses Heart - other findings: S1, S2 Respiratory: CTAB, no wheezes, no rales, no ronchi, normal chest expansion Gastrointestinal: soft, non-tender, non-distended, normal bowel sounds, no palpable masses Extremities: no cyanosis, no clubbing, no edema Skin: normal turgor, no lesions Neurological: cranial nerve grossly intact Neurological - other findings: bilat UE weakness Musculoskeletal: generalized weakness Psychiatric: normal affect, A&O x 3 Hosp A/P (1) Cervical spinal stenosis Code(s): M48.02 - SPINAL STENOSIS, CERVICAL REGION Status: Acute Plan: continue PT/OT for mobilization and strengthening exercises, likely will need surgical intervention at a later date (2) Bilateral arm weakness Code(s): R29.898 - OT SYMPTOMS AND SIGNS INVOLVING THE MUSCULOSKELETAL SYSTEM Status: Acute Plan: PT/OT for mobilization, await inpt rehab approval (3) Traumatic edema of cervical spinal cord Code(s): S14.0XXA - CONCUSSION AND EDEMA OF CERVICAL SPINAL CORD, INIT ENCNTR Status: Acute (4) Closed head injury Code(s): S09.90XA - UNSPECIFIED INJURY OF HEAD, INITIAL ENCOUNTER Status: Acute (5) Syncope and collapse Code(s): R55 - SYNCOPE AND COLLAPSE Status: Acute (6) Acute CVA (cerebrovascular accident) Code(s): I63.9 - CEREBRAL INFARCTION, UNSPECIFIED Status: Acute - Plan PT/OT, healthcare social worker, out of bed/ambulate Stable currently Pain control as clinically indicated PT/OT for mobilization Inpt Rehab approval pending Resume home meds Nicotine patch Bowel regimen
--- NOTE | 2020-06-16 01:11 | DIS ---
DATE OF ADMISSION: 05/28/2020 DATE OF DISCHARGE: 06/15/2020 DISCHARGE DIAGNOSES: 1. Acute cerebrovascular accident at the left temporal region, improved. 2. Bilateral upper extremity weakness secondary to #3. 3. Severe cervical spinal stenosis. 4. Status post mechanical fall. 5. Acute metabolic encephalopathy multifactorial, resolved. 6. Hypertension, stable. 7. Closed head injury, status post fall. 8. Syncope/collapse. CONSULTATIONS: 1. Dr. Dukes with Neurology Service. 2. Dr. Lamas with Pulmonology Critical Care Service. 3. Neurosurgical Service. 4. Acute Pain Management Service. PERTINENT LABORATORY AND X-RAY FINDINGS: Hemoglobin A1c at 5.8. Lactic acid level 1.5. Serum ammonia level 36. Total CK ranged between 955-1672. Vitamin B12 level at 264, folate 5.60. TSH 1.54. CBC showed a white blood cell count ranging between 9.4 to 12.0. Platelet count ranged between 382-576. Urine drug screen dated on 05/27/2020 negative. Plasma alcohol level less than 10. COVID-19 PCR not detected on 05/27/2020, 06/03/2020, and 06/10/2020. Blood cultures 1/2 positive for alpha streptococcal species on 05/27/2020, likely skin contaminant. Urine culture dated 06/09/2020 showed less than 10,000 colonies of normal skin [place]. CT of the cervical spine dated 05/27/2020, showed degenerative changes of the cervical spine. CT of the brain without contrast dated 05/27/2020, showed no acute intracranial process. Left scalp hematoma noted. MRI of the brain dated 05/27/2020, showed restricted diffusion in the left temporal lobe. Carotid Doppler study dated 05/28/2020, showed limited exam due to patient motion artifact. EEG dated 05/28/2020, showed moderate generalized nonspecific cerebral dysfunction. 2D transthoracic echocardiogram dated 05/28/2020, showed ejection fraction 55% to 60%. Moderate left atrial enlargement. CT angiogram of the head and neck dated 05/28/2020, showed no hemodynamically significant stenosis. MRI of the cervical spine dated 05/29/2020, showed retropharyngeal space hematoma of the entire cervical spine. Posterior perivertebral space edema suggestive of strain injury of the interspinous ligament and posterior paraspinal musculature. MRI of the brain dated 06/08/2020, showed absent restricted diffusion previously noted on prior MRI of the brain. Left frontal scalp hematoma. Lumbar spine MRI dated 06/08/2020, showed moderate to severe lumbar spondylosis. Broad-based bulge with superimposed left paracentral disk protrusion at L4 on L5 with some severe narrowing of the left lateral recess. HOSPITAL COURSE: The patient was initially admitted after presenting status post mechanical fall with closed head injury and altered mental status. The patient underwent extensive evaluation with multiple neuroimaging studies as stated previously. The patient was initially given IV fluids as well as Rocephin and Haldol in the emergency room. Initial CT of the brain was unremarkable. However, MRI imaging of the brain showed restricted diffusion in the left temporal lobe consistent with small acute CVA. The patient underwent general stroke protocol and evaluated by the Neurology Service. The patient continued on aspirin and Lipitor and monitored for clinical response. The patient was noted with profound upper extremity weakness and inability to move the upper extremities. The patient regained movement of his lower extremities over the course of several days and was evaluated by the Neurosurgical team due to severe cervical spine stenosis. Recommendations were to pursue aggressive inpatient therapy and consider surgical intervention with decompression in the near future. The patient slowly clinically improved and regained some movement of his upper extremities with overall decreased strength in abduction, flexion and forearm extension and flexion. The patient worked with Physical and Occupational Therapy who deemed the patient appropriate candidate for ongoing inpatient rehabilitation. The patient's mentation did improve with supportive management and general monitoring. The patient tolerating regular oral intake with stable vital signs by the time of discharge. I have examined the patient at the time of discharge and discussed followup instructions. The patient verbalized understanding and agreement, ready for discharge on 06/15/2020. DISCHARGE MEDICATIONS: 1. Lexapro 20 mg p.o. daily. 2. Lipitor 40 mg p.o. daily. 3. Metformin 500 mg p.o. daily. 4. Bupropion 150 mg p.o. b.i.d. 5. Ambien 5 mg p.o. at bedtime p.r.n. 6. Enteric-coated aspirin 81 mg p.o. daily. 7. Flexeril 5 mg p.o. t.i.d. p.r.n. 8. Folic acid 1 mg p.o. daily. 9. Keppra 500 mg p.o. b.i.d. 10. MiraLAX 17 g p.o. daily p.r.n. 11. Naproxen 500 mg p.o. b.i.d. 12. Neurontin 200 mg p.o. t.i.d. 13. Nicoderm CQ 21 mg transdermally daily. 14. Norvasc 5 mg p.o. daily. 15. Vitamin B12 of 1000 mcg p.o. daily. 16. Lisinopril 40 mg p.o. daily. FOLLOWUP: The patient may follow up with his primary care provider, Dr. Sarah Love after discharge from [facility] in [place], [place]. CONDITION ON DISCHARGE: Fair. ACTIVITY: Ad alesha, rolling walker with contact guard assistance and high fall risk precautions. DIET: ADA. CODE STATUS: Full. DISPOSITION: Discharged to [facility] in [place], [place] on 06/15/2020. TIME SPENT: Total time preparing and coordinating discharge, 38 minutes. Job ID: [id number]
== END 2020-06-15 19:08 | DRG 64 ==
LOC: ERS 06:42 → 2SE 13:41 → OBSVTOIN 05-28 13:00 → CCU 05-29 17:55 → IMCU/EMU 06-02 15:06 → T4-A 06-06 18:34
PROVIDERS: ADMIT Student in an Organized Health Care Education/Training Program; ATTEND Family Medicine
PROC: 0T9B70Z Drainage of Bladder with Drainage Device, Via Natural or Artificial Opening (ICD-10-PCS; principal; 2020-05-28)
DX: I63.9 Cerebral infarction, unspecified (principal); G93.41 Metabolic encephalopathy; S14.123A Central cord syndrome at C3 level of cervical spinal cord, initial encounter; S14.0XXA Concussion and edema of cervical spinal cord, initial encounter; M62.82 Rhabdomyolysis; M47.12 Other spondylosis with myelopathy, cervical region; F05 Delirium due to known physiological condition; N39.0 Urinary tract infection, site not specified; M48.02 Spinal stenosis, cervical region; I10 Essential (primary) hypertension; Z20.828 Contact with and (suspected) exposure to other viral communicable diseases; E11.9 Type 2 diabetes mellitus without complications; F32.9 Major depressive disorder, single episode, unspecified; F17.210 Nicotine dependence, cigarettes, uncomplicated; S00.03XA Contusion of scalp, initial encounter; R29.702 NIHSS score 2; F12.10 Cannabis abuse, uncomplicated; R29.898 Other symptoms and signs involving the musculoskeletal system; D52.9 Folate deficiency anemia, unspecified; W10.9XXA Fall (on) (from) unspecified stairs and steps, initial encounter; S13.4XXA Sprain of ligaments of cervical spine, initial encounter; S00.83XA Contusion of other part of head, initial encounter; F17.290 Nicotine dependence, other tobacco product, uncomplicated; I65.22 Occlusion and stenosis of left carotid artery; G47.33 Obstructive sleep apnea (adult) (pediatric); Z96.641 Presence of right artificial hip joint; M47.816 Spondylosis without myelopathy or radiculopathy, lumbar region; M51.16 Intervertebral disc disorders with radiculopathy, lumbar region; S09.90XA Unspecified injury of head, initial encounter; M25.552 Pain in left hip; K59.00 Constipation, unspecified; Z79.899 Other long term (current) drug therapy; Z91.018 Allergy to other foods; Z79.84 Long term (current) use of oral hypoglycemic drugs
CPT/HCPCS: 36415; 36416; 51701; 51798; 70450; 70496; 70498; 70551; 71045; 72125; 72141; 72148; 80048; 80053; 80061; 80076; 80306; 80307; 81001; 81003; 82140; 82550; 82607; 82746; 83036; 83605; 83690; 84443; 84484; 85007; 85025; 85027; 85610; 85730; 87040; 87086; 87149; 87635; 93005; 93306; 93880; 95712; 95819; 95957; 96372; 96374; 96375; 96376; G0378; J1630; J1650; J1885; J2060; J2270; Q9967; U0003

== ENCOUNTER 2020-09-18 19:32 | Emergency (ER) | payer OTHER ==
[2020-09-18 20:33] LABS: #Basophils 0.1 thou/uL (0.0-0.2); #Eosinphils 0.3 thou/uL (0.0-0.7); #Lymphocytes 3.1 thou/uL (1.20-3.40); #Monocytes 0.7 thou/uL (0.11-0.59); #Neutrophils 4.8 thou/uL (1.40-6.50); %Basophils 0.9 % (0.0-1.0); %Eosinophils 3.3 % (0.0-10.0); %Lymphocytes 34.6 % (21.0-51.0); %Monocytes 7.8 % (0.0-10.0); %Neutrophils 53.5 % (42.0-75.0); Hemoglobin 14.3 g/dL (14.0-18.0); Mean Corpuscular HGB CONC 33.5 g/dL (32.0-36.0); Mean Corpuscular Hemoglobin 31.1 pg (27.0-31.0); Mean Corpuscular Volume 92.9 fL (78.0-98.0); Mean Platelet Volume 5.7 fL (7.4-10.4); Platelet Count 773 thou/uL (130-400); RBC Distribution Width 13.1 % (11.5-14.5)
--- NOTE | 2020-09-18 20:54 | RAD ---
RADIOGRAPH CERVICAL SPINE 3 VIEWS: DATE: 09/18/2020 HISTORY: 65-year-old male with cervicalgia FINDINGS: Bilateral posterior element screws with vertical interlocking rods at C3, C4, C5, and C6. Laminectomy defects from C2-C3 through C6-7. No high-grade collapse of vertebral body heights. Multilevel high-grade degenerative disc disease from C3-4 through C6-7. C7-T1 obscured by shoulders on lateral view. No prevertebral soft tissue swelling. Ill-defined numerous faint small calcific densities in the soft tissues at the levels of the laminect omies. IMPRESSION: 1) status post laminectomies and posterior element fusion hardware throughout most levels of C-spine 2) cervical spondylosis with multilevel high-grade degenerative disc disease
[2020-09-18 21:03] LABS: ALT (SGPT) 23 U/L (8-55); Alkaline Phosphatase 140 U/L (40-110); Anion Gap 17 mmol/L (10-20); BUN (Urea Nitrogen) 8 mg/dL (8.4-25.7); Bilirubin, Total 0.2 mg/dL (0.2-1.2); Calc. Creatinine Clearance 0 mL/min (70-130); Calcium 8.8 mg/dL (7.8-10.44); Carbon Dioxide 24 mmol/L (23-31); Chloride 107 mmol/L (98-107); Glucose 108 mg/dL (80-115); Potassium 4.4 mmol/L (3.5-5.1); Sodium 144 mmol/L (136-145)
[2020-09-18] MEDS ORDERED: HYDROcodone/Acetaminophen 5/325 mg Tablet ONE (21:20)
[2020-09-18] MEDS ORDERED: Acetaminophen 500 MG TAB ONE (21:21)
[2020-09-18] MEDS ORDERED: Ibuprofen 200 MG TAB ONE (21:21)
[2020-09-18 21:25] LABS: AST (SGOT) 20 U/L (5-34)
== END 2020-09-18 22:54 | disposition home or self-care (01) ==
LOC: ERS 19:32
DX: M54.2 Cervicalgia (principal); E78.5 Hyperlipidemia, unspecified; I10 Essential (primary) hypertension; F17.210 Nicotine dependence, cigarettes, uncomplicated; Z86.73 Personal history of transient ischemic attack (TIA), and cerebral infarction without residual deficits; Z79.84 Long term (current) use of oral hypoglycemic drugs; Z79.899 Other long term (current) drug therapy
CPT/HCPCS: 36415; 72040; 80053; 85025

== ENCOUNTER 2021-02-01 09:52 | Emergency (ER) | payer OTHER ==
[2021-02-01 10:16] LABS: #Basophils 0.1 thou/uL (0.0-0.2); #Eosinphils 0.2 thou/uL (0.0-0.7); #Lymphocytes 2.5 thou/uL (1.20-3.40); #Monocytes 0.8 thou/uL (0.11-0.59); #Neutrophils 5.6 thou/uL (1.40-6.50); %Basophils 0.9 % (0.0-1.0); %Eosinophils 2.3 % (0.0-10.0); %Lymphocytes 27.5 % (21.0-51.0); %Monocytes 8.8 % (0.0-10.0); %Neutrophils 60.6 % (42.0-75.0); Hemoglobin 14.6 g/dL (14.0-18.0); Mean Corpuscular HGB CONC 33.8 g/dL (32.0-36.0); Mean Corpuscular Hemoglobin 30.2 pg (27.0-31.0); Mean Corpuscular Volume 89.2 fL (78.0-98.0); Platelet Count 472 thou/uL (130-400); RBC Distribution Width 12.8 % (11.5-14.5); Red Blood Cell (RBC) Count 4.85 mill/uL (4.70-6.10); White Blood Cell (WBC) Count 9.2 thou/uL (4.8-10.8)
[2021-02-01 10:39] LABS: ALT (SGPT) 22 U/L (8-55); AST (SGOT) 16 U/L (5-34); Albumin 4.4 g/dL (3.4-4.8); Alkaline Phosphatase 115 U/L (40-110); Anion Gap 14 mmol/L (10-20); BUN (Urea Nitrogen) 15 mg/dL (8.4-25.7); Bilirubin, Total 0.5 mg/dL (0.2-1.2); Calc. Creatinine Clearance 0 mL/min (70-130); Calcium 9.6 mg/dL (7.8-10.44); Carbon Dioxide 23 mmol/L (23-31); Chloride 103 mmol/L (98-107); Globulin 3.2 g/dL (2.4-3.5); Glucose 121 mg/dL (80-115); Potassium 4.3 mmol/L (3.5-5.1); Protein, Total 7.6 g/dL (5.8-8.1); Sodium 136 mmol/L (136-145)
[2021-02-01] MEDS ORDERED: Lorazepam 2 MG/ML VIAL ONE ×2 (10:43→11:51)
[2021-02-01 11:50] LABS: Bilirubin Negative (Negative); Blood, Urine Negative (Negative); Clarity Clear (Clear); Glucose, Urine (Dipstick) Normal (Negative); Ketone, Urine Negative (Negative); Leukocyte Negative Leu/uL (Negative); Nitrite Negative (Negative); Protein, Urine (Dipstick) Negative (Neg-Trace); Specific Gravity, Urine 1.012 (1.002-1.036); Urobilinogen Normal mg/dL (Less than 2)
== END 2021-02-01 12:30 | disposition home or self-care (01) ==
LOC: ERS 09:52
DX: R53.1 Weakness (principal); R42 Dizziness and giddiness; R29.700 NIHSS score 0; E78.5 Hyperlipidemia, unspecified; I10 Essential (primary) hypertension; R73.03 Prediabetes; F17.210 Nicotine dependence, cigarettes, uncomplicated; Z86.73 Personal history of transient ischemic attack (TIA), and cerebral infarction without residual deficits; Z79.84 Long term (current) use of oral hypoglycemic drugs; Z79.899 Other long term (current) drug therapy
CPT/HCPCS: 36415; 71045; 80053; 81003; 83605; 83880; 84484; 85025; 87040; 93005; 96374; 96376; J2060

== ENCOUNTER 2021-02-04 11:23 | Emergency (ER) | payer OTHER ==
[2021-02-04 12:45] LABS: Bacteria/HPF None Seen HPF (None Seen); Bilirubin Negative (Negative); Blood, Urine Trace (Negative); Clarity Clear (Clear); Glucose, Urine (Dipstick) Normal (Negative); Ketone, Urine Negative (Negative); Leukocyte Negative Leu/uL (Negative); Nitrite Negative (Negative); Protein, Urine (Dipstick) 10 mg/dL (Neg-Trace); RBC/HPF 0-3 HPF (0-3); Specific Gravity, Urine 1.025 (1.002-1.036); Squamous Epithelial None Seen HPF (0-3); Urobilinogen Normal mg/dL (Less than 2)
[2021-02-04 12:46] LABS: #Basophils 0.1 thou/uL (0.0-0.2); #Eosinphils 0.2 thou/uL (0.0-0.7); #Lymphocytes 2.3 thou/uL (1.20-3.40); #Monocytes 0.6 thou/uL (0.11-0.59); #Neutrophils 5.7 thou/uL (1.40-6.50); %Basophils 0.9 % (0.0-1.0); %Lymphocytes 26.3 % (21.0-51.0); %Neutrophils 63.8 % (42.0-75.0); Hemoglobin 14.5 g/dL (14.0-18.0); Mean Corpuscular Hemoglobin 31.1 pg (27.0-31.0); Mean Corpuscular Volume 88.8 fL (78.0-98.0); Platelet Count 447 thou/uL (130-400); RBC Distribution Width 12.8 % (11.5-14.5); Red Blood Cell (RBC) Count 4.68 mill/uL (4.70-6.10); White Blood Cell (WBC) Count 8.9 thou/uL (4.8-10.8)
[2021-02-04 12:48] LABS: Sperm/HPF 1+ HPF (None Seen)
[2021-02-04 13:08] LABS: ALT (SGPT) 20 U/L (8-55); AST (SGOT) 14 U/L (5-34); Acetaminophen Less than 6.0 mcg/mL (10.0-30.0); Albumin 4.5 g/dL (3.4-4.8); Alcohol Less than 10 mg/dL (Less than 10); Alkaline Phosphatase 125 U/L (40-110); Anion Gap 15 mmol/L (10-20); BUN (Urea Nitrogen) 13 mg/dL (8.4-25.7); Bilirubin, Total 0.5 mg/dL (0.2-1.2); Calc. Creatinine Clearance 0 mL/min (70-130); Calcium 9.6 mg/dL (7.8-10.44); Carbon Dioxide 23 mmol/L (23-31); Chloride 104 mmol/L (98-107); Globulin 2.6 g/dL (2.4-3.5); Glucose 96 mg/dL (80-115); Potassium 4.4 mmol/L (3.5-5.1); Protein, Total 7.1 g/dL (5.8-8.1); Salicylate Less than 8.0 mg/dL (15.0-30.0); Sodium 138 mmol/L (136-145)
[2021-02-04 13:12] LABS: Amphetamine Not Detected (NotDetected); Barbiturates Screen Not Detected (NotDetected); Benzodiazepine Screen Not Detected (NotDetected); Cocaine Metabolite Screen Not Detected (NotDetected); Medtox Control Line Valid? VALID (VALID); Medtox Reader # READER 1; Methadone Not Detected (NotDetected); Methamphetamine Not Detected (NotDetected); Opiate Screen Not Detected (NotDetected); Oxycodone Screen Not Detected (NotDetected); Phencyclidine (PCP) Not Detected (NotDetected); THC/Cannabinoid Screen Not Detected (NotDetected); Tricyclic Screen Not Detected (NotDetected)
[2021-02-04] MEDS ORDERED: Lorazepam 1 MG TAB ONE (16:11)
== END 2021-02-04 21:38 ==
LOC: ERS 11:23
DX: R45.851 Suicidal ideations (principal); E78.5 Hyperlipidemia, unspecified; I10 Essential (primary) hypertension; R73.03 Prediabetes; F17.210 Nicotine dependence, cigarettes, uncomplicated; Z86.73 Personal history of transient ischemic attack (TIA), and cerebral infarction without residual deficits; Z79.899 Other long term (current) drug therapy; Z79.84 Long term (current) use of oral hypoglycemic drugs
CPT/HCPCS: 36415; 80053; 80306; 80307; 81003; 81015; 85025; 93005

== ENCOUNTER 2021-04-06 11:19 | Emergency (ER) | payer OTHER | END 2021-04-06 12:55 | disposition left against medical advice (07) | LOC: ERS 11:19 | DX: M54.5 Low back pain (principal); E78.5 Hyperlipidemia, unspecified; I10 Essential (primary) hypertension; E11.9 Type 2 diabetes mellitus without complications; F17.210 Nicotine dependence, cigarettes, uncomplicated; Z86.73 Personal history of transient ischemic attack (TIA), and cerebral infarction without residual deficits; Z79.84 Long term (current) use of oral hypoglycemic drugs; Z79.899 Other long term (current) drug therapy | CPT/HCPCS: 99283 ==

== ENCOUNTER 2023-02-03 08:39 | Outpatient (CLI) | payer MEDICARE, OTHER ==
[2023-02-03 11:12] LABS: #Basophils 0.1 10x3/uL (0.0-0.2); #Eosinphils 0.4 10x3/uL (0.0-0.5); #Monocytes 0.7 10x3/uL (0.0-1.1); #Neutrophils 4.9 10x3/uL (1.5-8.4); %Basophils 0.8 % (0.0-2.0); %Lymphocytes 29.7 % (18.0-47.0); %Neutrophils 56.3 % (40.0-75.0); Hemoglobin 15.6 g/dL (13.5-17.5); Mean Corpuscular HGB CONC 33.8 g/dL (32.0-36.0); Mean Corpuscular Hemoglobin 30.2 pg (27.0-33.0); Mean Corpuscular Volume 89.2 fl (81.2-95.1); Mean Platelet Volume 8.7 fl (7.4-10.4); Platelet Count 437 10x3/uL (150-450); RBC Distribution Width 13.5 % (11.5-14.5); Red Blood Cell (RBC) Count 5.17 10x6/uL (4.32-5.72); White Blood Cell (WBC) Count 8.8 10x3/uL (3.5-10.5)
[2023-02-03 11:24] LABS: INR-International Normal Ratio 0.9; Prothrombin Time 10.2 sec (9.5-12.1)
[2023-02-03 11:26] LABS: Anion Gap 16 mmol/L (10-20); BUN (Urea Nitrogen) 13 mg/dL (8.4-25.7); Calc. Creatinine Clearance 0 mL/min (70-130); Calcium 9.7 mg/dL (7.8-10.44); Carbon Dioxide 23 mmol/L (23-31); Chloride 106 mmol/L (98-107); Estimated GFR 98; Glucose 126 mg/dL (80-115); Potassium 4.5 mmol/L (3.5-5.1); Sodium 140 mmol/L (136-145)
== END 2023-02-03 08:40 | disposition home or self-care (01) ==
LOC: LABBT 08:39
PROVIDERS: ATTEND Orthopaedic Surgery
DX: Z01.818 Encounter for other preprocedural examination (principal); M16.12 Unilateral primary osteoarthritis, left hip
CPT/HCPCS: 80048; 85025; 85610; 87081; 93005; 93010